=== PATIENT | female | born 1985 | race Caucasian/White ===

== ENCOUNTER 2017-02-15 21:59 | Emergency (ER) | payer MEDICAID ==
[~2017-02-15] VITALS: Ht 152.4 cm; Wt 72.6 kg
[~2017-02-15 21:59] MED LIST: AC325T PO; ACET-168 PO; ACET325T49 PO; ACHD5005 PO; ACHYD1T PO; AMPH20TA PO; BUPR1FIL3 SL; BUPR1TAB SL; CEPH500C PO; CLON0.5T60 PO; CYCL10TA45 PO; CYCL10TA9 PO; DCL250C PO; DCS100C PO; DIPH25TA82 PO; HYDR-2997 PO; HYDR-34 PO; HYDR-3720 PO; HYDR1TAB PO; IBP800T PO; KETO-22; LEVO500T69 PO; META800T5; META800T5 PO; METH4TAB PO; NAPR-243 PO; NAPR-247; NAPR250T2 PO; OXYC1TAB12 PO; PRD20T PO; PRD5T PO; PREN1TAB19 PO; PREN1TAB39 PO; PRM50SU PR; PROP1TAB77; SULF1TAB35 PO; TOPAMAX; TRAM50TA2 PO; TRM50T PO
--- OUTSIDE RECORDS SUMMARY | 2017-02-15 22:06 | XMS REPORT ---
Author Author KEON BHATIA Organization eClinicalWorks Address Unknown Phone Unavailable Care Team Providers Care Aoc Director Intelligence Officer Name Role Phone KEON BHATIA CP Unavailable Allergies No Known Allergies Problems Problem Type Condition Code Onset Dates Condition Status Problem Opioid use disorder, severe, dependence F11.20 Active Medications No Known Medications Results No Known Results Summary Purpose eClinicalWorks Submission
[2017-02-15] MEDS ORDERED: AZITHROMYCIN 250 MG TAB (ZITHROMAX) PO SCH (23:00)
[2017-02-15] MEDS ORDERED: RX-ALBUTEROL INHALER (VENTOLIN HFA) 18 GM IH STA (23:00)
[2017-02-15] MEDS ORDERED: RX-ALBUTEROL INHALER (PROAIR) 8 GM IH ONE (23:05)
[2017-02-15] MEDS ORDERED: RX-OSELTAMIVIR 75 MG (TAMIFLU) BOX OF 10 PO STA (23:16)
[2017-02-15] MEDS ORDERED: AZIT250T5 PO (23:30)
--- NOTE | 2017-02-15 23:31 | ED General ---
General Chief Complaint: Cough/Cold/Flu Symptoms Stated Complaint: COUGH/CHEST CONGESTION FEVER Nursing Triage Note: PT TO ED W/ C/O COUGH, CONGESTION, SORE THROAT ONSET THIS AM, WORSE TONIGHT Nursing Sepsis Screen: No Definite Risk Source of Information: Patient Exam Limitations: No Limitations History of Present Illness Time Seen by Provider: 22:10 Initial Comments This 31-year-old woman presents to the emergency room with cough, congestion, sore throat, fever, dyspnea, and chest discomfort since this morning. Symptoms have been worsening. She also brings several ill children the youngest of whom tested positive for influenza A. Patient is a smoker. Allergies and Home Medications Allergies Coded Allergies: latex (Verified Allergy, Unknown, 09/27/08) tramadol (Unverified Adverse Reaction, Severe, headache, 09/11/10) Home Medications Azithromycin 250 Mg Tablet #4 250 MG PO DAILY Prescribed by: JOÃO DOYLE on 02/15/17 2330 Buprenorphine Hcl/Naloxone Hcl 1 Each Film 2 EACH SL DAILY (Reported) Dicloxacillin Sodium 250 Mg Cap #24 250 MG PO Q6H Start if breast redness returns Prescribed by: WILMAR REYNOSO on 09/25/15 1414 Naproxen 250 Mg Tablet #10 250 MG PO BID Prescribed by: WILMAR REYNOSO on 09/25/15 1412 Constitutional: see HPI EENTM: see HPI Respiratory: see HPI Cardiovascular: no symptoms reported Gastrointestinal: no symptoms reported Genitourinary: no symptoms reported Musculoskeletal: no symptoms reported Skin: no symptoms reported Psychiatric/Neurological: No Symptoms Reported Hematologic/Lymphatic: No Symptoms Reported Past Tdgcfpj-Aamixk-Zfhheb Hx Patient Social History Alcohol Use: Denies Use Recreational Drug Use: No Smoking Status: Current Everyday Smoker Type Used: Cigarettes Recent Foreign Travel: No Contact w/Someone Who Travel: No Recent Infectious Disease Expo: No Recent Hopitalizations: No Immunizations Up To Date Tetanus Booster (TDap): Less than 5yrs Surgeries HX Surgeries: Yes (5 c-sec, carpal tunnel, l knee surg, benign turmor on feet, uretural reflex) Surgeries: Section Respiratory Hx Respiratory Disorders: Yes (tobaccoism) Respiratory Disorders: Asthma Cardiovascular Hx Cardiac Disorders: No Neurological Hx Neurological Disorders: No Reproductive System Hx Reproductive Disorders: No Sexually Transmitted Disease: Yes (age 12 Clamydia) HIV/AIDS: No Female Reproductive Disorders: Denies Genitourinary Hx Genitourinary Disorders: Yes Genitourinary Disorders: Kidney Infection, UTI-Chronic Gastrointestinal Hx Gastrointestinal Disorders: No (PREG constipation) Musculoskeletal Hx Musculoskeletal Disorders: Yes (2005-injury to back by lifting) Musculoskeletal Disorders: Chronic Back Pain Endocrine Hx Endocrine Disorders: No HEENT HX ENT Disorders: Yes (Wears corrective lens) Hearing Impairment: Denies Cancer Hx Cancer: No Psychosocial Hx Psychiatric Problems: No Integumentary HX Skin/Integumentary Disorder: No Blood Transfusions Hx Blood Disorders: No Adverse Reaction to a Blood Tr: No Family Medical History Significant Family History: No Pertinent Family Hx Family Medial History: Hypertension 18 MOTHER Physical Exam Vital Signs Vital Sign - Last 12Hours 02/15/17 22:25 Temp 98.0 Pulse 68 Resp 20 B/P 132/71 Pulse Ox 96 O2 Delivery Room Air Capillary Refill : Less Than 3 Seconds General Appearance: WD/WN Mild Distress HEENT: PERRL/EOMI TMs Normal Normal ENT Inspection Pharyngeal Erythema Neck: Normal Inspection Respiratory: No Accessory Muscle Use No Respiratory Distress Wheezing Cardiovascular: Regular Rate, Rhythm No Edema No Murmur Gastrointestinal: Normal Bowel Sounds Non Tender Soft Extremity: Normal Inspection No Pedal Edema Neurologic/Psychiatric: Alert Oriented x3 No Motor/Sensory Deficits Normal Mood/Affect lighter II-XII Norm as Tested Skin: Normal Color Warm/Dry Progress/Results/Core Measures Results/Orders Micro Results Microbiology 02/15/17 Influenza Types A,B Antigen (VERENICE) - Final, Complete My Orders Orders-JOÃO POLLARD MD Influenza A And B Antigens (02/15/17 22:10) Rx-Albuterol Inhaler (Rx-Ventolin Hfa) (02/15/17 23:00) Azithromycin Tablet (Zithromax Tablet) (02/15/17 23:00) Rx-Albuterol Inhaler (Rx-Proair) (02/15/17 23:05) Rx-Oseltamivir Caps (Rx-Tamiflu Caps) (02/15/17 23:16) Vital Signs/I&O Blood Pressure Mean: 91 Progress Note : Progress Note Patient's youngest son tested positive for influenza A. patient was started on Tamiflu. An inhaler was provided and education was provided by respiratory therapy. Antibiotics were initiated due to patient's smoking, chest discomfort , and significant wheezing. Departure Impression Impression: Primary Impression: Acute bronchitis Qualified Code: J20.9 - Acute bronchitis, unspecified Additional Impression: Flu-like symptoms Disposition: 01 HOME, SELF-CARE Condition: Improved Departure-Patient Inst. Decision time for Depature: 23:15 Referrals: [facility] (PCP/Family) Primary Care Physician Patient Instructions: Acute Bronchitis, Adult (DC) Add. Discharge Instructions: Reduce smoking and work toward quitting. Complete your Tamiflu as prescribed. Complete your antibiotic as prescribed. You may use your inhaler 1-4 puffs every 4 hours as needed for shortness of breath, cough, or chest discomfort. Return to care if symptoms worsen. All discharge instructions reviewed with patient and/or family. Voiced understanding. Scripts Azithromycin 250 Mg [id number] Mg PO DAILY #4 TAB Prov:JOÃO POLLARD MD 02/15/17 JOÃO POLLARD MD Feb 15, 2017 23:31
[2017-02-15 23:53] VITALS: BP 0/0
== END 2017-02-15 23:53 | disposition home or self-care (01) ==
LOC: EDUNIT# 21:59 → ER 22:02
DX: J20.9 Acute bronchitis, unspecified (principal); J10.1 Influenza due to other identified influenza virus with other respiratory manifestations; F17.210 Nicotine dependence, cigarettes, uncomplicated
CPT/HCPCS: 87804; 99283

== ENCOUNTER 2017-02-23 19:40 | Emergency (ER) | payer MEDICAID ==
[~2017-02-23] VITALS: Ht 157.5 cm; Wt 66.2 kg
[~2017-02-23 19:40] MED LIST changes: +AZIT250T5 PO
[2017-02-23 20:14] LABS: BILIRUBIN,URINE NEGATIVE (NEGATIVE); KETONES,URINE NEGATIVE (NEGATIVE); LEUKOCYTE ESTERASE ,URINE 3+ (NEGATIVE); NITRITE,URINE POSITIVE (NEGATIVE); PH,URINE 6 (5-9); PROTEIN,URINE 2+ (NEGATIVE); UROBILINOGEN,URINE NORMAL (NORMAL)
[2017-02-23] MEDS ORDERED: BUPR1FIL7 SL (20:15)
[2017-02-23 20:24] LABS: SQUAMOUS EPITHELIAL CELL,UR >50 /HPF; WBC,URINE >100 /HPF
[2017-02-23] MEDS ORDERED: LEVOFLOXACIN 500 MG TAB (LEVAQUIN) PO ONE (20:45)
[2017-02-23] MEDS ORDERED: LEVO500T2 PO (20:45)
--- NOTE | 2017-02-23 20:45 | ED GU-Female ---
General Chief Complaint: -Female Stated Complaint: DIFFICULTY URINATING Nursing Triage Note: PT C/O KIDNEY PAIN STARTING THIS MORNING. WITH CLOUDY, THICK URINE THIS EVENING. RECENTLY TREATED FOR UTI. Nursing Sepsis Screen: No Definite Risk Source: patient History of Present Illness Time seen by provider: 20:05 Initial Comments PT ARRIVES VIA POV PT STATES IMMEDIATELY PRIOR TO ARRIVAL, SHE HAD URINATED TO TAKE AN OVULATION TEST AND STATES HER URINE "LOOKED LIKE EGG WHITES AND HAD A FOUL ODOR" SO RUSHED STRAIGHT HERE STATES SHE HAS FREQUENT UTI'S AND TREATED FOR ONE WITH MACRODANTIN 2 WEEKS AGO-- SEEN AT [facility] C/O SLIGHT BURNING ON URINATION AND LOWER BACK PAIN STATES SHE HAS ONLY URINATED ONCE TODAY NO FEVER NO ABDOMINAL PAIN NO NAUSEA/VOMITING HAS CHRONIC LOWER BACK PAIN WITH SCIATICA IN RIGHT LEG--WOULD ALSO LIKE SOMETHING FOR PAIN FOR THAT PROBLEM WELL LMP 02/07/17. NO CONTROL, HAS 6 KIDS PT SEEN HERE 02/15/17 AND TREATED FOR BRONCHITIS WITH ZITHROMAX--THOSE SYMPTOMS HAVE RESOLVED. PCP: DR. PEREZ/ [facility] Allergies and Home Medications Allergies Coded Allergies: latex (Verified Allergy, Unknown, 09/27/08) tramadol (Unverified Adverse Reaction, Severe, headache, 09/11/10) Home Medications Buprenorphine HCl/Naloxone HCl 1 Each Film, 2 EACH SL DAILY, (Reported) Buprenorphine Hcl/Naloxone Hcl 1 Each Film, 1 EACH SL DAILY, (Reported) Levofloxacin 500 Mg Tablet, 500 MG PO DAILY, #14 Prescribed by: SANCHEZ PARADA on 02/23/172044 Methylprednisolone 4 Mg Tab.ds.pk, 4 MG PO UD, #1 Prescribed by: SANCHEZ PARADA on 02/23/172050 Constitutional: no symptoms reported Respiratory: no symptoms reported Cardiovascular: no symptoms reported Gastrointestinal: no symptoms reported Genitourinary: see HPI : No LMP: Feb 07, 2017 Musculoskeletal: see HPI, back pain Skin: no symptoms reported Psychiatric/Neurological: Paresthesia (TO RIGHT THIGH--CHRONIC / INTERMITTENT PROBLEM WITH SCIATICA) Endocrine: No Symptoms Reported Hematologic/Lymphatic: No Symptoms Reported Past Buykpys-Brecce-Inadqh Hx Patient Social History Alcohol Use: Denies Use Recreational Drug Use: No Smoking Status: Current Everyday Smoker (1 PPD) Type Used: Cigarettes Recent Foreign Travel: No Contact w/Someone Who Travel: No Recent Infectious Disease Expo: No Recent Hopitalizations: No Immunizations Up To Date Tetanus Booster (TDap): Less than 5yrs Surgeries HX Surgeries: Yes (5 c-sec, carpal tunnel, l knee surg, benign turmor on feet, uretural reflex) Surgeries: Bladder Surgery, Section, Orthopedic Respiratory Hx Respiratory Disorders: Yes (tobaccoism) Respiratory Disorders: Asthma Cardiovascular Hx Cardiac Disorders: No Neurological Hx Neurological Disorders: No Reproductive System Hx Reproductive Disorders: No Sexually Transmitted Disease: Yes (age 12 Chlamydia) HIV/AIDS: No Female Reproductive Disorders: Denies Genitourinary Hx Genitourinary Disorders: Yes Genitourinary Disorders: Kidney Infection, Bladder Infection, UTI-Chronic Gastrointestinal Hx Gastrointestinal Disorders: No (PREG constipation) Musculoskeletal Hx Musculoskeletal Disorders: Yes (2005-injury to back by lifting; sciatica) Musculoskeletal Disorders: Chronic Back Pain Endocrine Hx Endocrine Disorders: No HEENT HX ENT Disorders: Yes (Wears corrective lens) Hearing Impairment: Denies Cancer Hx Cancer: No Psychosocial Hx Psychiatric Problems: No Integumentary HX Skin/Integumentary Disorder: No Blood Transfusions Hx Blood Disorders: No Adverse Reaction to a Blood Tr: No Family Medical History Significant Family History: No Pertinent Family Hx Family Medial History: Hypertension 19 MOTHER Physical Exam Vital Signs Vital Sign - Last 12Hours 02/23/17 02/23/17 20:10 20:59 Temp 99.1 Pulse 75 Resp 16 B/P (MAP) 136/95 Pulse Ox 98 Capillary Refill : Less Than 3 Seconds General Appearance: WD/WN, no apparent distress Neck: normal inspection Cardiovascular: regular rate, rhythm, no murmur Respiratory: normal breath sounds, no respiratory distress, no accessory muscle use Gastrointestinal: normal bowel sounds, soft, no organomegaly, no pulsatile mass , tenderness ( MILD SUPRAPUBIC TENDERNESS) Back: no CVA tenderness, no vertebral tenderness, other (SITE OF PAIN IS RIGHT SI JOINT-BUT IS NON-TENDER TO PALPATION, STATES ONLY HURTS WHEN SHE WALKS OR MOVES. NEGATIVE STRAIGHT LEG RAISING TEST BILATERALLY. DTR'S INTACT BILATERALLY) Extremities: normal range of motion, non-tender, normal inspection, no pedal edema, no calf tenderness, normal capillary refill Neurologic/Psychiatric: report programmer II-XII nml as tested, no motor/sensory deficits, alert, normal mood/affect, oriented x 3 Skin: normal color, warm/dry Progress/Results/Core Measures Results/Orders Lab Results Laboratory Tests Test 02/23/17 20:01 Range/Units Urine Color YELLOW Urine Clarity SLIGHTLY CLOUDY Urine pH 6 5-9 Urine Specific [place] 1.020 1.016-1.022 Urine Protein 2+ H NEGATIVE Urine Glucose (UA) NEGATIVE NEGATIVE Urine Ketones NEGATIVE NEGATIVE Urine Nitrite POSITIVE H NEGATIVE Urine Bilirubin NEGATIVE NEGATIVE Urine Urobilinogen NORMAL NORMAL MG/DL Urine Leukocyte Esterase 3+ H NEGATIVE Urine RBC (Auto) 3+ H NEGATIVE Urine RBC 10-25 H /HPF Urine WBC >100 H /HPF Urine Squamous Epithelial Cells >50 H /HPF Urine Crystals NONE /LPF Urine Bacteria LARGE H /HPF Urine Casts NONE /LPF Urine Mucus NEGATIVE /LPF Urine Culture Indicated YES Urine Opiates Screen NEGATIVE NEGATIVE Urine Oxycodone Screen NEGATIVE NEGATIVE Urine Methadone Screen NEGATIVE NEGATIVE Urine Propoxyphene Screen NEGATIVE NEGATIVE Urine Barbiturates Screen NEGATIVE NEGATIVE Ur Tricyclic Antidepressants Screen NEGATIVE NEGATIVE Urine Phencyclidine Screen NEGATIVE NEGATIVE Urine Amphetamines Screen NEGATIVE NEGATIVE Urine Methamphetamines Screen NEGATIVE NEGATIVE Urine Benzodiazepines Screen NEGATIVE NEGATIVE Urine Cocaine Screen NEGATIVE NEGATIVE Urine Cannabinoids Screen NEGATIVE NEGATIVE My Orders Orders - SANCHEZ PARADA DO Ua Culture If Indicated (02/23/17 20:06) Urine Bedside (02/23/17 20:06) Urine Culture (02/23/17 20:01) Drug Screen Stat (Urine) (02/23/17 20:45) Levofloxacin Tablet (Levaquin Tablet) (02/23/17 20:45) Prednisone Tablet (Deltasone Tablet) (02/23/17 21:00) Medications Given in ED Current Medications Medications Dose Ordered Sig/Hever Route Start Time Stop Time Status Last Admin Dose Admin Levofloxacin 500 mg ONCE ONCE PO 02/23/17 20:45 02/23/17 20:47 DC 02/23/17 20:57 500 MG Prednisone 40 mg ONCE ONCE PO 02/23/17 21:00 02/23/17 21:00 DC 02/23/17 20:57 40 MG Vital Signs/I&O Vital Sign - Last 12Hours 02/23/17 02/23/17 20:10 20:59 Temp 99.1 Pulse 75 82 Resp 16 16 B/P (MAP) 136/95 Pulse Ox 98 Blood Pressure Mean: 109 Point of Care Testing Urine -Bedside: Negative Departure Impression Impression: Primary Impression: Urinary tract infection Additional Impressions: Sciatica of right side Chronic back pain Disposition: 01 HOME, SELF-CARE Condition: Stable Departure-Patient Inst. Referrals: [facility] (PCP/Family) Primary Care Physician Patient Instructions: Low Back Pain (DC), Sciatica (DC), Sciatica Exercises, Urinary Tract Infection, Adult (DC) Add. Discharge Instructions: LOTS OF CLEAR LIQUIDS--NO COFFEE, POP OR TEA TYLENOL AND MOTRIN NEEDED FOR PAIN OR FEVER FOLLOW UP WITH YOUR DR IN 4-5 DAYS FOR RECHECK All discharge instructions reviewed with patient and/or family. Voiced understanding. Scripts Methylprednisolone (Medrol) 4 Mg Tab.ds.pk 4 MG PO UD, #1 PKG Prov: SANCHEZ PARADA DO 02/23/17 Levofloxacin (Levaquin) 500 Mg Tablet 500 MG PO DAILY for INFECTION, #14 TAB Prov: SANCHEZ PARADA DO 02/23/17 SANCHEZ PARADA DO Feb 23, 2017 20:45
[2017-02-23] MEDS ORDERED: METH4TAB PO (20:51)
[2017-02-23 20:59] VITALS: BP 128/78
[2017-02-23] MEDS ORDERED: predniSONE 20 MG TAB PO ONE (21:00)
--- OUTSIDE RECORDS SUMMARY | 2017-03-10 19:17 | XMS REPORT ---
Author JESSICA Mcbride [facility] [place] eClinicalWorks Address Unknown Phone Unavailable Care Team Providers Care Lace Pinner Name Role Phone JESSICA PEREZ CP Unavailable Allergies No Known Allergies Problems Problem Type Condition Code Onset Dates Condition Status Assessment Opioid use disorder, moderate, in early remission F11.21 Active Problem Opioid use disorder, severe, dependence F11.20 Active Medications Medication Code System Code Instructions Start Date End Date Status Dosage Suboxone [facility] [address]-02 8-2 MG Sublingual Once a day Oct 06, 2016 2 application under the tongue and allow to dissolve Results No Known Results Summary Purpose eClinicalWorks Submission
--- OUTSIDE RECORDS SUMMARY | 2017-03-10 19:17 | XMS REPORT ---
Author Author KEON BHATIA Organization eClinicalWorks Address Unknown Phone Unavailable Care Team Providers Care Clinical Biostatistician Name Role Phone KEON BHATIA CP Unavailable Allergies No Known Allergies Problems Problem Type Condition Code Onset Dates Condition Status Problem Opioid use disorder, severe, dependence F11.20 Active Medications No Known Medications Results No Known Results Summary Purpose eClinicalWorks Submission
--- OUTSIDE RECORDS SUMMARY | 2017-03-10 19:18 | XMS REPORT ---
Author JESSICA Mcbride Organization eClinicalWorks Address Unknown Phone Unavailable Care Team Providers Care Machine Clerical Verifier Name Role Phone JESSICA PEREZ CP Unavailable Allergies No Known Allergies Problems Problem Type Condition Code Onset Dates Condition Status Problem Encounter for therapeutic drug level monitoring Z51.81 Active Problem Opioid use disorder, severe, dependence F11.20 Active Problem Other long term care phlebotomist (current) drug therapy Z79.899 Active Assessment Opioid use disorder, severe, dependence F11.20 Active Medications No Known Medications Results No Known Results Summary Purpose eClinicalWorks Submission
--- OUTSIDE RECORDS SUMMARY | 2017-03-10 19:19 | XMS REPORT ---
Author Author KEON BHATIA Organization eClinicalWorks Address Unknown Phone Unavailable Care Team Providers Care Prosthetics Lab Technician Name Role Phone KEON BHATIA CP Unavailable Allergies No Known Allergies Problems Problem Type Condition Code Onset Dates Condition Status Problem Encounter for therapeutic drug level monitoring Z51.81 Active Problem Opioid use disorder, severe, dependence F11.20 Active Problem Other halfway (current) drug therapy Z79.899 Active Medications No Known Medications Results No Known Results Summary Purpose eClinicalWorks Submission
--- OUTSIDE RECORDS SUMMARY | 2017-03-10 19:19 | XMS REPORT ---
Author JESSICA Mcbride [facility] eClinicalWorks Address Unknown Phone Unavailable Care Team Providers Care Mortgage Loan Officer Name Role Phone JESSICA PEREZ CP Unavailable Allergies, Adverse Reactions, Alerts Substance Reaction Event Type Tramadol HCl nausea/headache Drug Allergy Problems Problem Type Condition Code Onset Dates Condition Status Assessment History of substance abuse Z87.898 Active Problem Opioid use disorder, severe, dependence F11.20 Active Medications Medication Code System Code Instructions Start Date End Date Status Dosage Suboxone [facility] [address]-96 8-2 MG Sublingual Once a day 2 films under the tongue and allow to dissolve Procedures Procedure Coding System Code Date COMPLETE CBC W/AUTO DIFF WBC CPT-4 51410 Sep 29, 2016 COMPREHEN METABOLIC PANEL CPT-4 85612 Sep 29, 2016 Alcohol and/or drug services CPT-4 H0004 Sep 29, 2016 ACUTE HEPATITIS PANEL CPT-4 60440 Sep 29, 2016 No Charge CPT-4 88144 Sep 29, 2016 VENIPUNCT, ROUTINE* CPT-4 56151 Sep 29, 2016 PROTHROMBIN TIME CPT-4 47577 Sep 29, 2016 Results Name Result Date Reference Range Unit Abnormality Flag PT/INR ----INR 1.0 [id number] 0.8-1.2 ----Prothrombin Time 10.3 62373734 9.1-12.0 sec CMP ----Globulin, Total 2.9 76913389 1.5-4.5 g/dL ----eGFR If Africn Am 129 16385408 >59 mL/min/1.73 ----eGFR If NonAfricn Am 112 35888584 >59 mL/min/1.73 ----Albumin, Serum 4.0 77821815 3.5-5.5 g/dL ----Sodium, Serum 142 76443274 136-144 mmol/L ----Protein, Total, Serum 6.9 85171040 6.0-8.5 g/dL ----BUN/Creatinine Ratio 13 20160929 8-20 ----Calcium, Serum 9.2 20160929 8.7-10.2 mg/dL ----AST (SGOT) 14 20160929 0-40 IU/L ----Glucose, Serum 77 20160929 65-99 mg/dL ----Alkaline Phosphatase, S 62 20160929 39-117 IU/L ----Bilirubin, Total <0.2 20160929 0.0-1.2 mg/dL ----Creatinine, Serum 0.72 20160929 0.57-1.00 mg/dL ----A/G Ratio 1.4 20160929 1.1-2.5 ----BUN 9 20160929 6-20 mg/dL ----Carbon Dioxide, Total 25 20160929 18-29 mmol/L ----ALT (SGPT) 8 20160929 0-32 IU/L ----Potassium, Serum 4.4 20160929 3.5-5.2 mmol/L ----Chloride, Serum 104 20160929 97-106 mmol/L ROUTINE VENIPUNCTURE CBC ----MCHC 32.2 55694000 31.5-35.7 g/dL ----MCH 25.4 16692803 26.6-33.0 pg L ----Platelets 275 20160929 150-379 x10E3/uL ----RDW 15.9 33277909 12.3-15.4 % H ----Immature Granulocytes 0 70186007 % ----Immature Grans (Abs) 0.0 36878717 0.0-0.1 x10E3/uL ----Lymphs 29 44720832 % ----Monocytes 7 18023070 % ----Neutrophils 51 65265806 % ----Neutrophils (Absolute) 2.8 62769194 1.4-7.0 x10E3/uL ----Hematocrit 32.9 98618320 34.0-46.6 % L ----Lymphs (Absolute) 1.6 02699206 0.7-3.1 x10E3/uL ----MCV 79 67972160 79-97 fL ----RBC 4.17 33891784 3.77-5.28 x10E6/uL ----Eos 12 20160929 % ----Basos 1 20160929 % ----Hemoglobin 10.6 20160929 11.1-15.9 g/dL L ----Baso (Absolute) 0.0 20160929 0.0-0.2 x10E3/uL ----WBC 5.5 20160929 3.4-10.8 x10E3/uL ----Monocytes(Absolute) 0.4 12238245 0.1-0.9 x10E3/uL ----Eos (Absolute) 0.7 74820993 0.0-0.4 x10E3/uL H HIV (STATE) HEPATITIS PROFILE ----Hep C Virus Ab <0.1 20160929 0.0-0.9 s/co ratio ----Hep B Core Ab, IgM Negative 20160929 Negative ----HBsAg Screen Negative 20160929 Negative ----Hep A Ab, IgM Negative 20160929 Negative [employer] Summary Purpose eClinicalWorks Submission
--- OUTSIDE RECORDS SUMMARY | 2017-03-10 19:19 | XMS REPORT ---
Author JESSICA Mcbride Organization eClinicalWorks Address Unknown Phone Unavailable Care Team Providers Care Director [place] [employer] Name Role Phone JESSICA PEREZ CP Unavailable Allergies No Known Allergies Problems Problem Type Condition Code Onset Dates Condition Status Problem Encounter for therapeutic drug level monitoring Z51.81 Active Problem Opioid use disorder, severe, dependence F11.20 Active Problem Other intermediate project manager (current) drug therapy Z79.899 Active Assessment Opioid use disorder, severe, dependence F11.20 Active Medications Medication Code System Code Instructions Start Date End Date Status Dosage Suboxone [facility] [address]-32 8-2 MG Sublingual Once a day Oct 06, 2016 2.5 films (20mg) under the tongue and allow to dissolve Results No Known Results Summary Purpose eClinicalWorks Submission
--- OUTSIDE RECORDS SUMMARY | 2017-03-10 19:19 | XMS REPORT ---
Author JESSICA Mcbride eClinicalWorks Address Unknown Phone Unavailable Care Team Providers Care Support Coordinator Name Role Phone JESSICA PEREZ CP Unavailable Allergies No Known Allergies Problems Problem Type Condition Code Onset Dates Condition Status Assessment History of substance abuse Z87.898 Active Problem Opioid use disorder, severe, dependence F11.20 Active Medications Medication Code System Code Instructions Start Date End Date Status Dosage Suboxone [facility] [address]-79 8-2 MG Sublingual Once a day 3 films under the tongue and allow to dissolve Procedures Procedure Coding System Code Date URINE TEST CPT-4 17524 Oct 03, 2016 Results Name Result Date Reference Range Unit Abnormality Flag TEST, URINE (IN HOUSE) ----RESULTS neg [id number] ----Lot # [id number] ----Control + 20161003 ----Exp date 20161003 Summary Purpose eClinicalWorks Submission
--- OUTSIDE RECORDS SUMMARY | 2017-03-10 19:20 | XMS REPORT ---
Author Author KEON BHATIA Organization eClinicalWorks Address Unknown Phone Unavailable Care Team Providers Care Nursing Student Name Role Phone KEON BHATIA CP Unavailable Allergies No Known Allergies Problems Problem Type Condition Code Onset Dates Condition Status Problem Opioid use disorder, severe, dependence F11.20 Active Medications No Known Medications Results No Known Results Summary Purpose eClinicalWorks Submission
--- OUTSIDE RECORDS SUMMARY | 2017-03-10 19:20 | XMS REPORT ---
Author JESSICA Mcbride [employer] Address Unknown Phone Unavailable Care Team Providers Care Machine Edge Bander Name Role Phone JESSICA PEREZ CP Unavailable Allergies No Known Allergies Problems Problem Type Condition Code Onset Dates Condition Status Problem Encounter for therapeutic drug level monitoring Z51.81 Active Problem Opioid use disorder, severe, dependence F11.20 Active Problem Other intermediate designer (current) drug therapy Z79.899 Active Assessment Encounter for therapeutic drug level monitoring Z51.81 Active Assessment Neck pain M54.2 Active Assessment Opioid use disorder, severe, dependence F11.20 Active Assessment Other senior living (current) drug therapy Z79.899 Active Medications No Known Medications Procedures Procedure Coding System Code Date Office Visit, Est Pt., Level 3 CPT-4 07734 Oct 20, 2016 DRUG SCREEN NON TLC DEVICES CPT-4 07072 Oct 20, 2016 Vital Signs Date/Time: Oct 20, 2016 Cardiac Monitoring Heart Rate 76 bpm Weight 155.6 lbs Height 63 in BMI 27.56 Index Blood Pressure Diastolic 72 mmHg Blood Pressure Systolic 112 mmHg Results Name Result Date Reference Range Unit Abnormality Flag URINE DRUG SCREEN (IN HOUSE) ----BUP n/a 20161020 ----TCA neg 20161020 ----MDMA neg 20161020 ----BENZO neg 20161020 ----OPIATE neg 20161020 ----THC neg 20161020 ----MTD neg 20161020 ----AMPH neg 20161020 ----BAR neg 20161020 ----PCP neg 20161020 ----MAMP neg 20161020 ----OXY neg 20161020 ----Lot # [id number] ----Exp date 20161020 ----Control + 20161020 ----COCAINE neg 20161020 Summary Purpose eClinicalWorks Submission
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
--- OUTSIDE RECORDS SUMMARY | 2017-03-10 19:21 | XMS REPORT ---
Author Author KEON BHATIA Organization [employer] Address Unknown Phone Unavailable Care Team Providers Care Household Appliance Assembler Name Role Phone KEON BHATIA CP Unavailable Allergies No Known Allergies Problems Problem Type Condition Code Onset Dates Condition Status Problem Opioid use disorder, severe, dependence F11.20 Active Medications No Known Medications Results No Known Results Summary Purpose [employer] Submission
--- OUTSIDE RECORDS SUMMARY | 2017-03-10 19:22 | XMS REPORT ---
Author Author JESSICA PEREZ [facility] Address [address] [place] [address] Care Team Providers Care Vault Clerk Name Role Phone JESSICA PEREZ Unavailable PROBLEMS Type Condition ICD9-CM Code [id number] Code Onset Dates Condition Status SNOMED Code Problem Other senior living (current) drug therapy Z79.899 Active 555755353 Problem Encounter for therapeutic drug level monitoring Z51.81 Active 827302096 Problem Opioid use disorder, severe, dependence F11.20 Active 50365345 Assessment Opioid use disorder, severe, dependence F11.20 Sep, Active 85624152 ALLERGIES Substance Reaction Event Type Date Status Tramadol HCl nausea/headache Drug Allergy Sep, Active SOCIAL HISTORY No smoking Hx information available PLAN OF CARE VITAL SIGNS Height 63 in 2016-10-27 Weight 155.0 lbs 2016-10-27 Heart Rate 72 bpm 2016-10-27 Respiratory Rate 18 2016-10-27 BMI 27.45 kg/m2 2016-10-27 Blood pressure systolic 120 mmHg 2016-10-27 Blood pressure diastolic 78 mmHg 2016-10-27 MEDICATIONS Medication Instructions Dosage Frequency Start Date End Date Duration Status Suboxone 8-2 MG Sublingual Once a day 2.5 films (20mg) under the tongue and allow to dissolve 24h Sep, Active RESULTS No Results PROCEDURES Procedure Date Ordered Related Diagnosis Body Site Office Visit, Est Pt., Level 3 Oct 27, 2016 IMMUNIZATIONS No Known Immunizations
--- OUTSIDE RECORDS SUMMARY | 2017-03-10 19:22 | XMS REPORT ---
Author Author GEOVANI DAVIDSON [facility] [employer] Address Unknown Phone Unavailable Care Team Providers Care Nutrition Teacher Name Role Phone GEOVANI DAVIDSON Unavailable Allergies No Known Allergies Problems Problem Type Condition Code Onset Dates Condition Status Assessment Counseling on substance use and abuse Z71.89 Active Problem Opioid use disorder, severe, dependence F11.20 Active Medications No Known Medications Procedures Procedure Coding System Code Date Alcohol and/or drug services CPT-4 H0004 Sep 29, 2016 Results No Known Results Summary Purpose [employer] Submission
--- OUTSIDE RECORDS SUMMARY | 2017-03-10 19:22 | XMS REPORT ---
Author Author KEON BHATIA Organization [employer] Address Unknown Phone Unavailable Care Team Providers Care Manager Language Name Role Phone KEON BHATIA CP Unavailable Allergies No Known Allergies Problems Problem Type Condition Code Onset Dates Condition Status Problem Opioid use disorder, severe, dependence F11.20 Active Medications No Known Medications Results No Known Results Summary Purpose [employer] Submission
--- OUTSIDE RECORDS SUMMARY | 2017-03-10 19:22 | XMS REPORT ---
Author Author KEON BHATIA Organization [employer] Address Unknown Phone Unavailable Care Team Providers Care Boarder Machine Name Role Phone KEON BHATIA CP Unavailable Allergies No Known Allergies Problems Problem Type Condition Code Onset Dates Condition Status Problem Opioid use disorder, severe, dependence F11.20 Active Medications No Known Medications Results No Known Results Summary Purpose [employer] Submission
--- OUTSIDE RECORDS SUMMARY | 2017-03-10 19:22 | XMS REPORT ---
Author Author CLAUDINE FOWLER [employer] Address Unknown Phone Unavailable Care Team Providers Care Banjo Repair Person Name Role Phone CLAUDINE FOWLER CP Unavailable Allergies, Adverse Reactions, Alerts Substance Reaction Event Type N.K.D.A. Info Not Available Non Drug Allergy Problems Problem Type Condition Code Onset Dates Condition Status Problem Previous delivery, unspecified as to episode of care or not applicable 654.20 Active Problem Screening for diabetes mellitus V77.1 Active Problem DTAP TEST V06.1 Active Problem Encounter for long-term (current) use of other medications V58.69 Active Problem Tobacco use disorder complicating , childbirth, or the puerperium, unspecified as to episode of care or not applicable 649.00 Active Problem Major depressive disorder, recurrent episode, unspecified 296.30 Active Problem with history of V23.2 Active Problem Supervision of with history of pre-term labor V23.41 Active Problem Screening examination for venereal disease V74.5 Active Problem Screening for malignant neoplasm of the cervix V76.2 Active Problem Acute pharyngitis 462 Active Problem Attention deficit disorder of childhood without mention of hyperactivity 314.00 Active Assessment Acute non-recurrent maxillary sinusitis J01.00 Active Problem Infections of genitourinary tract in , unspecified as to episode of care 646.60 Active Problem Nondependent opioid abuse, in remission 305.53 Active Problem Insufficient care V23.7 Active Medications Medication Code System Code Instructions Start Date End Date Status Dosage [facility] [place] [address] Orally Once a day 1 tablet Suboxone [facility] [place] [address]-48 8-2 MG Sublingual Once a day 1 application under the tongue and allow to dissolve Augmentin [facility] [place] [address]-01 875-125 MG Orally every 12 hrs Sep 05, 2016 Sep 15, 2016 1 tablet Procedures Procedure Coding System Code Date Office Visit, Est Pt., Level 3 CPT-4 51597 Sep 05, 2016 Vital Signs Date/Time: Sep 05, 2016 Cardiac Monitoring Heart Rate 80 bpm Weight 156.4 lbs Height 63 in BMI 27.70 Index Blood Pressure Diastolic 82 mmHg Blood Pressure Systolic 130 mmHg Results No Known Results Summary Purpose eClinicalWorks Submission
--- OUTSIDE RECORDS SUMMARY | 2017-03-10 19:23 | XMS REPORT ---
Author JESSICA Mcbride Organization [employer] Address Unknown Phone Unavailable Care Team Providers Care Counseling Center Manager Name Role Phone JESSICA PEREZ CP Unavailable Allergies, Adverse Reactions, Alerts Substance Reaction Event Type Tramadol HCl nausea/headache Drug Allergy Problems Problem Type Condition Code Onset Dates Condition Status Assessment Opioid use disorder, severe, dependence F11.20 Active Problem Opioid use disorder, severe, dependence F11.20 Active Medications Medication Code System Code Instructions Start Date End Date Status Dosage Suboxone [facility] [place] [address]-16 8-2 MG Sublingual Once a day Oct 06, 2016 2.5 films (20mg) under the tongue and allow to dissolve Procedures Procedure Coding System Code Date Office Visit, Est Pt., Level 3 CPT-4 27312 Oct 13, 2016 DRUG SCREEN NON TLC DEVICES CPT-4 13685 Oct 13, 2016 Vital Signs Date/Time: Oct 13, 2016 Cardiac Monitoring Heart Rate 76 bpm Weight 153.7 lbs Height 63 in BMI 27.22 Index Blood Pressure Diastolic 84 mmHg Blood Pressure Systolic 112 mmHg Results Name Result Date Reference Range Unit Abnormality Flag URINE DRUG SCREEN (IN HOUSE) ----BUP + [id number] ----TCA n/a [id number] ----MDMA neg [id number] ----BENZO neg [id number] ----OPIATE neg [id number] ----THC neg [id number] ----MTD neg [id number] ----AMPH neg [id number] ----BAR neg [id number] ----PCP neg [id number] ----MAMP neg [id number] ----OXY neg [id number] ----Lot # [id number] ----Exp date [id number] ----Control + [id number] ----COCAINE neg [id number] Summary Purpose [employer] Submission
--- OUTSIDE RECORDS SUMMARY | 2017-03-10 19:23 | XMS REPORT ---
Author Author RAFAEL TADEO Organization [employer] Address Unknown Phone Unavailable Care Team Providers Care Paper Sample Clerk Name Role Phone RAFAEL TADEO CP Unavailable Allergies No Known Allergies Problems Problem Type Condition Code Onset Dates Condition Status Problem Encounter for therapeutic drug level monitoring Z51.81 Active Problem Opioid use disorder, severe, dependence F11.20 Active Problem Other [facility] (current) drug therapy Z79.899 Active Medications No Known Medications Results No Known Results Summary Purpose [employer] Submission
--- OUTSIDE RECORDS SUMMARY | 2017-03-10 19:23 | XMS REPORT ---
Author Author RAFAEL TADEO Organization [employer] Address Unknown Phone Unavailable Care Team Providers Care Silicator Name Role Phone RAFAEL TADEO CP Unavailable Allergies No Known Allergies Problems Problem Type Condition Code Onset Dates Condition Status Assessment Counseling on substance use and abuse Z71.89 Active Problem Opioid use disorder, severe, dependence F11.20 Active Medications No Known Medications Procedures Procedure Coding System Code Date AUDIT/DAST, OVER 30 MIN CPT-4 12130 Oct 06, 2016 Results No Known Results Summary Purpose [employer] Submission
--- OUTSIDE RECORDS SUMMARY | 2017-03-10 19:23 | XMS REPORT ---
Author Author KEON BHATIA Organization [employer] Address Unknown Phone Unavailable Care Team Providers Care Arborist Name Role Phone KEON BHATIA CP Unavailable Allergies No Known Allergies Problems Problem Type Condition Code Onset Dates Condition Status Problem Opioid use disorder, severe, dependence F11.20 Active Medications No Known Medications Results No Known Results Summary Purpose [employer] Submission
--- OUTSIDE RECORDS SUMMARY | 2017-03-10 19:24 | XMS REPORT ---
Author Author KEON BHATIA Organization [employer] Address Unknown Phone Unavailable Care Team Providers Care Equal Opportunity Specialist Name Role Phone KEON BHATIA CP Unavailable Allergies No Known Allergies Problems Problem Type Condition Code Onset Dates Condition Status Problem Encounter for therapeutic drug level monitoring Z51.81 Active Problem Opioid use disorder, severe, dependence F11.20 Active Problem Other [facility] ([facility] drug [facility] Z79.899 Active Medications No Known Medications Results No Known Results Summary Purpose [employer] Submission
--- OUTSIDE RECORDS SUMMARY | 2017-03-10 19:24 | XMS REPORT ---
Author JESSICA Mcbride Organization [employer] Address Unknown Phone Unavailable Care Team Providers Care Obstetric Anaesthetist Name Role Phone JESSICA PEREZ CP Unavailable Allergies No Known Allergies Problems Problem Type Condition Code Onset Dates Condition Status Assessment Opioid use disorder, severe, dependence F11.20 Active Problem Opioid use disorder, severe, dependence F11.20 Active Medications No Known Medications Results No Known Results Summary Purpose [employer] Submission
--- OUTSIDE RECORDS SUMMARY | 2017-03-10 19:24 | XMS REPORT ---
Author JESSICA Mcbride Organization [employer] Address Unknown Phone Unavailable Care Team Providers Care Mining Consultant Name Role Phone JESSICA PEREZ CP Unavailable Allergies, Adverse Reactions, Alerts Substance Reaction Event Type Tramadol HCl nausea/headache Drug Allergy Problems Problem Type Condition Code Onset Dates Condition Status Assessment Opioid use disorder, moderate, in early remission F11.21 Active Problem Opioid use disorder, severe, dependence F11.20 Active Medications Medication Code System Code Instructions Start Date End Date Status Dosage Suboxone [facility] [id number] 8-2 MG Sublingual Once a day Oct 06, 2016 2 application under the tongue and allow to dissolve Procedures Procedure Coding System Code Date Office Visit, Est Pt., Level 4 CPT-4 65752 Oct 06, 2016 Vital Signs Date/Time: Oct 06, 2016 Cardiac Monitoring Heart Rate 84 bpm Weight 152.6 lbs Height 63 in BMI 27.03 Index Blood Pressure Diastolic 84 mmHg Blood Pressure Systolic 122 mmHg Results No Known Results Summary Purpose [employer] Submission
== END 2017-02-23 20:59 | disposition home or self-care (01) ==
LOC: EDUNIT# 19:40 → ER 19:42
DX: N30.91 Cystitis, unspecified with hematuria (principal); M54.5 Low back pain; G89.29 Other chronic pain; F17.210 Nicotine dependence, cigarettes, uncomplicated
CPT/HCPCS: 80306; 81000; 84703; 87088; 99282

== ENCOUNTER → 2018-12-17 | Outpatient (CLI) | payer MEDICAID ==
[~2018-12-17] MED LIST changes: +AZIT250T12 PO; -AZIT250T5 PO; +BUPR1FIL7 SL; +LEVO500T2 PO; -NAPR250T2 PO; +NAPR250T6 PO
--- NOTE | 2018-12-17 14:54 | Diagnostic Imaging Report ---
INDICATION: Bilateral breast lumps and right sided nipple discharge. COMPARISON: No prior mammograms are available for comparison. TECHNIQUE: Bilateral 2D and 3D diagnostic mammography was performed with CAD. FINDINGS: Scattered fibroglandular densities are identified bilaterally. No mass or malignant appearing microcalcifications are seen. The axillae are unremarkable. IMPRESSION: No mammographic features suspicious for malignancy. Even so, sonographic interrogation of the areas of lump bilaterally is recommended and will be performed today. ACR BI-RADS Category 0: Incomplete. (Needs additional imaging evaluation). Result letter will be mailed to the patient. Note: At least 10% of breast cancer is not imaged by mammography. Dictated by: Dictated on workstation # [id number]
--- NOTE | 2018-12-17 18:10 | Diagnostic Imaging Report ---
INDICATION: Bilateral breast lumps. FINDINGS: Sonographic interrogation of the areas of lumps in both breasts was performed. This correlates to the 4 o'clock and 10 o'clock location of the right breast and the 2 o'clock location of the left breast. No sonographic abnormality is seen bilaterally. No solid or cystic mass is seen. IMPRESSION: No sonographic abnormality is seen. Continued clinical and self-breast exams recommended to confirm stability of the areas of palpable abnormality. ACR BI-RADS Category 1: Negative. Dictated by: Dictated on workstation # [id number]
== END ==
LOC: RAD 13:21
PROVIDERS: ATTEND Nurse Practitioner Community Health
DX: N63.21 Unspecified lump in the left breast, upper outer quadrant (principal); N63.14 Unspecified lump in the right breast, lower inner quadrant; N63.11 Unspecified lump in the right breast, upper outer quadrant; N64.52 Nipple discharge
CPT/HCPCS: 76642; 77066

== ENCOUNTER 2021-05-21 23:13 | Emergency (ER) | payer SELFPAY ==
[~2021-05-21] VITALS: Ht 158 cm; Wt 75.4 kg
[~2021-05-21 23:13] MED LIST changes: +NAPR-1088 PO; -NAPR250T6 PO
[2021-05-21 23:50] LABS: BILIRUBIN,URINE NEGATIVE (NEGATIVE); CLARITY,URINE CLEAR; COLOR,URINE YELLOW; GLUCOSE, URINE (UA) NEGATIVE (NEGATIVE); KETONES,URINE NEGATIVE (NEGATIVE); LEUKOCYTE ESTERASE ,URINE TRACE (NEGATIVE); NITRITE,URINE POSITIVE (NEGATIVE); PH,URINE 6.5 (5-9); PROTEIN,URINE TRACE (NEGATIVE)
--- NOTE | 2021-05-21 23:59 | ED GU-Female ---
General Chief Complaint: Female Reproductive Stated Complaint: VAG BLEEDING,STS 2 MONTHS PREG Nursing Triage Note: REPORTS MULTIPLE POSITIVE TESTS SINCE FEBRUARY. STATES INTERMITTANT BLEEDING. RECENT BLEEDING STARTED TODAY APPROX. 1600 UTILIZING MULTIPLE PADS/TAMPONS PER HR. Nursing Sepsis Screen: No Definite Risk Source: patient Exam Limitations: no limitations ([employer]ER [employer] MED STUDENT) History of Present Illness Date Seen by Provider: May 21, 2021 Time Seen by Provider: 23:54 Initial Comments Mrs. Donovan is a 35yo female that presents today with painless vaginal bleeding. States that LMP was around end january or early february and had taken tests around that time and found she was . She had an appointment to see Dr. Novak for April 03 but did not go due to an episode of vaginal bleeding. During this episode she bled for about an hour and then it stopped. She passed a few clots. She has taken tests since then and states they still show positive. She has a new appointment scheduled with him in about a week from now. She has not had an ultrasound to confirm intrauterine at this time. She states that with the bleeding she is having today she is having no pain. States the bleeding was really bad for about 90 minutes. She has soaked through at least 2 pads and 2 tampons. She also complains of some cramping and pressure. She also states she is getting over a UTI and thinks she may be still experiencing minor symptoms. She is sexually active with one partner and is not concerned for STD's. 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 She denies alcohol use. She has a history of numerous miscarriages. ([employer] MED STUDENT) Allergies and Home Medications Allergies Coded Allergies: latex (Verified Allergy, Unknown, 09/27/08) tramadol (Unverified Adverse Reaction, Severe, headache, 09/11/10) Home Medications Cephalexin 500 Mg Tablet, 500 MG PO TID Prescribed by: OJÃO DOYLE on 05/22/21 0100 Patient Home Medication List Home Medication List Reviewed: Yes (JOÃO POLLARD MD) Review of Systems Review of Systems Constitutional: No chills, No malaise EENTM: No hearing loss, No vision loss Respiratory: No dyspnea on exertion, No short of breath Cardiovascular: No chest pain, No palpitations Gastrointestinal: abdominal pain (Some cramping), constipation (Chronic); No diarrhea; nausea, vomiting Genitourinary: dysuria (mild) : Yes Musculoskeletal: No joint pain, No muscle pain Skin: No rash Psychiatric/Neurological: Headache (SHER GRANDE [employer] STUDENT) Past [id number]-Qqdgwd-Ltsqhh Hx Patient Social History Alcohol Use: Denies Use Drug of Choice: METH Smoking Status: Current Everyday Smoker Type Used: Cigarettes Recent Infectious Disease Expo: No Recent Hopitalizations: No (SHER GR[employer]DE [employer] STUDENT) Immunizations Up To Date Tetanus Booster (TDap): Less than 5yrs (SHER GRANDE [employer] STUDENT) Seasonal Allergies Seasonal Allergies: No ([employer]) Past Medical History Surgeries: Yes (6 c-sec, carpal tunnel, l knee surg, benign turmor on feet, uretural reflex) Bladder Surgery, Section, Orthopedic Respiratory: Yes Asthma Cardiac: Yes Hypertension Neurological: No : Yes Last Menstrual Period: Mar 14, 2021 Hx : 10 Hx Para: 6 Reproductive Disorders: No Female Reproductive Disorders: Denies Sexually Transmitted Disease: Yes (age 12 Chlamydia) HIV/AIDS: No Genitourinary: Yes Kidney Infection, Bladder Infection, UTI-Chronic Gastrointestinal: No Musculoskeletal: Yes Back Injury, Chronic Back Pain Endocrine: No HEENT: No Hearing Impairment: Denies Cancer: No Psychosocial: No Integumentary: No Blood Disorders: No Adverse Reaction/Blood Tranf: No ([employer] GRANDE [email or web address]) Family Medical History Hypertension 19 MOTHER No Pertinent Family Hx (SHER GRANDE [employer] ANNA) Physical Exam Vital Signs Vital Signs - First Documented 05/21/21 23:20 Temp 36.9 Pulse 91 Resp 18 B/P (MAP) 172/110 (130) Pulse Ox 98 O2 Delivery Room Air (JOÃO POLLARD MD) Vital Signs Capillary Refill : Less Than 3 Seconds (SHER GR[employer]DE [employer] STUDENT) Height, Weight, BMI Height: 5'2.00" Weight: 146lbs. 4.0oz. 66.886033vk; 30.00 BMI Method:Stated General Appearance: WD/WN, no apparent distress Cardiovascular: regular rate, rhythm, no edema, no murmur Respiratory: chest non-tender, lungs clear, normal breath sounds, no respiratory distress, no accessory muscle use Gastrointestinal: normal bowel sounds, non tender, soft, no organomegaly, no pulsatile mass Extremities: non-tender, no calf tenderness, other (Some swelling of LE) Neurologic/Psychiatric: alert, normal mood/affect, oriented x 3 Skin: normal color, warm/dry ([employer]) Progress/Results/Core Measures Suspected Sepsis Recent Fever Within 48 Hours: No Infection Criteria Present: None New/Unexplained Altered Menta: No Sepsis Screen: No Definite Risk SIRS Temperature: Pulse: 91 Respiratory Rate: 18 Blood Pressure 172 /110 Mean: 130 ([employer]) Results/Orders Lab Results Laboratory Tests Test 05/21/21 23:23 05/21/21 23:55 Range/Units Urine Color YELLOW Urine Clarity CLEAR Urine pH 6.5 5-9 Urine Specific [place] >=1.030 1.016-1.022 Urine Protein TRACE H NEGATIVE Urine Glucose (UA) NEGATIVE NEGATIVE Urine Ketones NEGATIVE NEGATIVE Urine Nitrite POSITIVE H NEGATIVE Urine Bilirubin NEGATIVE NEGATIVE Urine Urobilinogen 0.2 < = 1.0 MG/DL Urine Leukocyte Esterase TRACE H NEGATIVE Urine RBC (Auto) 3+ H NEGATIVE Urine RBC 50-100 H /HPF Urine WBC 10-25 H /HPF Urine Squamous Epithelial Cells 10-25 H /HPF Urine Crystals NONE /LPF Urine Bacteria LARGE H /HPF Urine Casts NONE /LPF Urine Mucus NEGATIVE /LPF Urine Culture Indicated YES White Blood Count 7.0 4.3-11.0 10^3/uL Red Blood Count 4.18 3.80-5.11 10^6/uL Hemoglobin 10.0 L 11.5-16.0 g/dL Hematocrit 32 L 35-52 % Mean Corpuscular Volume 75 L 80-99 fL Mean Corpuscular Hemoglobin 24 L 25-34 pg Mean Corpuscular Hemoglobin Concent 32 32-36 g/dL Red Cell Distribution Width 17.9 H 10.0-14.5 % Platelet Count 370 130-400 10^3/uL Mean Platelet Volume 9.4 9.0-12.2 fL Immature Granulocyte % (Auto) 0 % Neutrophils (%) (Auto) 55 42-75 % Lymphocytes (%) (Auto) 27 12-44 % Monocytes (%) (Auto) 8 0-12 % Eosinophils (%) (Auto) 9 0-10 % Basophils (%) (Auto) 1 0-10 % Neutrophils # (Auto) 3.9 1.8-7.8 10^3/uL Lymphocytes # (Auto) 1.9 1.0-4.0 10^3/uL Monocytes # (Auto) 0.6 0.0-1.0 10^3/uL Eosinophils # (Auto) 0.6 H 0.0-0.3 10^3/uL Basophils # (Auto) 0.1 0.0-0.1 10^3/uL Immature Granulocyte # (Auto) 0.0 0.0-0.1 10^3/uL Human Chorionic Gonadotropin, Quant 19 H <5 MIU/ML (JOÃO POLLARD MD) My Orders Orders - JOÃO POLLARD MD Cbc With Automated Diff (05/21/21 23:40) Hcg,Quantitative (05/21/21 23:40) Ua Culture If Indicated (05/21/21 23:40) Urine Culture (05/21/21 23:23) Cephalexin Capsule (Keflex Capsule) (05/22/21 01:00) (JOÃO POLLARD MD) Medications Given in ED Current Medications Medications Dose Ordered Sig/Hever Route Start Time Stop Time Status Last Admin Dose Admin Cephalexin HCl 500 mg ONCE ONCE PO 05/22/21 01:00 05/22/21 01:01 DC 05/22/21 01:06 500 MG (JOÃO POLLARD MD) Vital Signs/I&O 05/21/21 05/22/21 23:20 01:05 Temp 36.9 36.8 Pulse 91 79 Resp 18 18 B/P (MAP) 172/110 (130) 165/99 (130) Pulse Ox 98 99 O2 Delivery Room Air Room Air (JOÃO POLLARD MD) Vital Signs/I&O Capillary Refill : Less Than 3 Seconds (SHER GRANDE MED STUDENT) Blood Pressure Mean: 130 Progress Note : Progress Note hCG was only 19. It is unclear whether patient has a very early or is miscarrying. I have advised her to follow-up with Dr. Garrido to have a repeat hCG level performed. Depending on the results, ultrasound may be warranted. We also discussed the possibility of vaginal infections. She has had no vaginal symptoms prior to the onset of bleeding. However, she states her current partner is a new partner within the last year and she has not had any STI screening since becoming sexually active with him. She was offered a pelvic exam in the ER but would like to wait and do this with her primary care provider. Keflex was given for UTI. (JOÃO POLLARD MD) Departure Impression Primary Impression: Vaginal bleeding during Additional Impression: Urinary tract infection Qualified Codes: N39.0 - Urinary tract infection, site not specified; R31.9 - Hematuria, unspecified Disposition: 01 HOME, SELF-CARE Condition: Stable Departure-Patient Inst. Decision time for Depature: 00:59 (JOÃO POLLARD MD) Referrals: [facility] [place] (PCP/Family) Primary Care Physician Patient Instructions: Bleeding in Early ED Add. Discharge Instructions: Follow-up with Dr. Garrido later this morning. Your status should be monitored with a repeat hCG level and possibly an ultrasound if appropriate. Also discussed obtaining a pelvic exam for STI screening with Dr. Garrido. Drink plenty of clear liquids to stay well-hydrated. Complete your antibiotic for urinary tract infection as prescribed. Return to care if symptoms are worsening. Avoid intercourse or anything vaginally until cleared by your doctor. You may take Tylenol (acetaminophen) up to 1000 mg every 6 hours as needed for pain or cramping. Call with questions or concerns. All discharge instructions reviewed with patient and/or family. Voiced understanding. Scripts Cephalexin (Cephalexin) 500 Mg Tablet 500 MG PO TID, #20 TAB Prov: JOÃO POLLARD MD 05/22/21 Medical Student Attestation and Attending Note: I have personally interviewed and examined this patient along with Sher Grande MS4. I have reviewed student documentation including history, physical, and assessments. I agree with the documentation except where otherwise noted. Exam: General: Alert, oriented, no acute distress, well developed HEENT: Normocephalic and atraumatic Heart: Regular rate and rhythm without murmur Lungs: Clear to auscultation bilaterally with normal effort Abdomen: Soft, nontender, nondistended, normal bowel sounds Neuropsych: Alert, oriented, no focal deficits Skin: Warm and dry without rashes (JOÃO POLLARD MD) Copy Copies To 1: STACIE GARRIDO MD, DEREK MED STUDENT May 21, 2021 23:59 JOÃO POLLARD MD May 22, 2021 00:58
[2021-05-22 00:02] LABS: BASOPHILS # (AUTO) 0.1 10^3/uL (0.0-0.1); BASOPHILS % (AUTO) 1 % (0-10); EOSINOPHILS # (AUTO) 0.6 10^3/uL (0.0-0.3); EOSINOPHILS % (AUTO) 9 % (0-10); HEMATOCRIT 32 % (35-52); LYMPHOCYTES # (AUTO) 1.9 10^3/uL (1.0-4.0); LYMPHOCYTES % (AUTO) 27 % (12-44); MEAN CORPUSCULAR HEMOGLOBIN 24 pg (25-34); MEAN CORPUSCULAR HGB CONC 32 g/dL (32-36); MEAN CORPUSCULAR VOLUME 75 fL (80-99); MEAN PLATELET VOLUME 9.4 fL (9.0-12.2); MONOCYTES # (AUTO) 0.6 10^3/uL (0.0-1.0); MONOCYTES % (AUTO) 8 % (0-12); NEUTROPHILS # (AUTO) 3.9 10^3/uL (1.8-7.8); NEUTROPHILS % (AUTO) 55 % (42-75); PLATELET COUNT 370 10^3/uL (130-400)
[2021-05-22 00:02] LABS: BACTERIA,URINE LARGE /HPF; RBC,URINE 50-100 /HPF
[2021-05-22] MEDS ORDERED: CEPHALEXIN 250 MG (KEFLEX) CAP PO ONE (01:00)
[2021-05-22] MEDS ORDERED: CEPH500T PO (01:00)
[2021-05-22 01:05] VITALS: BP 165/99
[2021-05-22] MEDS ORDERED: MICO24CM4 VG (06:34)
== END 2021-05-22 01:06 | disposition home or self-care (01) ==
LOC: EDUNIT# 23:13 → ER 23:17
DX: O20.8 Other hemorrhage in early pregnancy (principal); N39.0 Urinary tract infection, site not specified; I10 Essential (primary) hypertension; J45.909 Unspecified asthma, uncomplicated; F17.210 Nicotine dependence, cigarettes, uncomplicated; Z3A.00 Weeks of gestation of pregnancy not specified
CPT/HCPCS: 36415; 81000; 84702; 85025; 87077; 87088; 87186

== ENCOUNTER 2022-01-20 13:35 | Emergency (ER) | payer MEDICAID ==
[~2022-01-20] VITALS: Ht 157.5 cm; Wt 77.1 kg
[~2022-01-20 13:35] MED LIST changes: +CEPH500T PO; +MICO24CM4 VG
--- NOTE | 2022-01-20 15:01 | ED GU-Female ---
General Chief Complaint: OB < 20 WEEKS Stated Complaint: 19 WKS PREG/CRAMPING/L LEG PAIN Nursing Triage Note: PT AMB TO TRIAGE WITH COMPLAINT OF ABD CRAMPING AND BACK PAIN. PT IS 19 WEEKS. STATES SHE HAS HAD A UTI HER WHOLE AND IS CURRENTLY ON AMOXICILLIN. DENIES BLEEDING OR SPOTTING. LAST USED METH YESTERDAY. PT THINKS SHE IS HAVING FER GARNER. NO PAIN AT TIME OF TRIAGE. Source: patient Exam Limitations: no limitations History of Present Illness Date Seen by Provider: Jan 20, 2022 Time Seen by Provider: 15:00 Initial Comments Patient is a 36-year-old female who presents the ED for lower abdominal cramping. This started this morning. Described as more tightness across her abdomen in the left buttock. Initially was intermittent became more constant today. Currently being managed by Dr. Brasher. G7, P6 with a history of C- sections and early . Currently on blood pressure medication. History of preeclampsia. No vaginal bleeding, vaginal discharge, urinary symptoms, fever, leg pain with swelling, vomiting, diarrhea, chest pain, shortness of breath. Was recommended come to ED by her [employer] P[facility] for further evaluation Allergies and Home Medications Allergies Coded Allergies: latex (Verified Allergy, Unknown, 09/27/08) tramadol (Unverified Adverse Reaction, Severe, headache, 09/11/10) Patient Home Medication List Home Medication List Reviewed: Yes Cephalexin (Cephalexin) 500 Mg Tablet, 500 MG PO TID Prescribed by: JOÃO DOYLE on 05/22/21 0100 Cephalexin (Cephalexin) 500 Mg Tablet, 500 MG PO TID Prescribed by: YOSHI DWYER on 01/20/22 1700 Miconazole Nitrate (Miconazole 3) 24 Gm Cmb.pf.crm, 24 GM VG UD Prescribed by: JOÃO DOYLE on 05/22/21 0634 Review of Systems Review of Systems Constitutional: No chills, No malaise, No weakness EENTM: No ear discharge, No ear pain, No mouth pain, No mouth swelling Respiratory: No cough, No dyspnea on exertion Cardiovascular: No chest pain, No edema, No Hx of Intervention Gastrointestinal: abdominal pain; No diarrhea, No nausea, No vomiting Genitourinary: denies burning, denies discharge, denies dysuria, denies frequency, denies hematuria Expected Date of Delivery: Jun 16, 2022 Musculoskeletal: back pain; No joint pain, No muscle pain, No muscle stiffness Skin: No change in color All Other Systemes Reviewed Negative Unless Noted: Yes Past Kzqtoev-Ikcmjq-Hyelrk Hx Patient Social History Tobacco Use?: Yes Tobacco type used: Cigarettes Smoking Status: Current Everyday Smoker Use of E-Cig and/or Vaping dev: No Substance use?: Yes Substance type: Methamphetamine Alcohol Use?: No Pt feels they are or have been: No Immunizations Up To Date Tetanus Booster (TDap): Less than 5yrs Seasonal Allergies Seasonal Allergies: No Past Medical History Surgeries: Yes (6 c-sec, carpal tunnel, l knee surg, benign turmor on feet, uretural reflex) Bladder Surgery, Section, Orthopedic Respiratory: Yes Asthma Cardiac: Yes Hypertension Neurological: No Expected Date of Delivery: Jun 16, 2022 Last Menstrual Period: Sep 28, 2021 Reproductive Disorders: No Female Reproductive Disorders: Denies Sexually Transmitted Disease: Yes (age 12 Chlamydia) HIV/AIDS: No Genitourinary: Yes Kidney Infection, Bladder Infection, UTI-Chronic Gastrointestinal: No Musculoskeletal: Yes Back Injury, Chronic Back Pain Endocrine: No HEENT: No Hearing Impairment: Denies Cancer: No Psychosocial: No Integumentary: No Blood Disorders: No Adverse Reaction/Blood Tranf: No Family Medical History Hypertension 19 MOTHER No Pertinent Family Hx Physical Exam Vital Signs Vital Signs - First Documented 01/20/22 14:36 Pulse 90 Resp 15 B/P (MAP) 133/88 (103) Pulse Ox 100 O2 Delivery Room Air Capillary Refill : Less Than 3 Seconds Height, Weight, BMI Height: 5'2.00" Weight: 146lbs. 4.0oz. 66.026522ww; 31.00 BMI Method:Stated General Appearance: WD/WN, no apparent distress HEENT: PERRL/EOMI, normal ENT inspection, TMs normal, pharynx normal Neck: non-tender, full range of motion, supple, normal inspection Cardiovascular: regular rate, rhythm, no edema, no gallop, no JVD, no murmur Respiratory: chest non-tender, lungs clear, normal breath sounds, no respiratory distress Gastrointestinal: normal bowel sounds, non tender, soft, no organomegaly Pelvic: other (Refused exam) Back: normal inspection, no CVA tenderness Extremities: normal range of motion, non-tender, normal inspection, no pedal edema Neurologic/Psychiatric: promotion manager II-XII nml as tested, no motor/sensory deficits, alert, normal mood/affect, oriented x 3 Progress/Results/Core Measures Suspected Sepsis SIRS Temperature: Pulse: 90 Respiratory Rate: 15 Laboratory Tests 01/20/22 15:13: White Blood Count 10.4 Blood Pressure 133 /88 Mean: 103 Laboratory Tests 01/20/22 15:13: Creatinine 0.65, Platelet Count 375, Total Bilirubin 0.1 Results/Orders Lab Results Laboratory Tests Test 01/20/22 15:13 01/20/22 15:26 Range/Units White Blood Count 10.4 4.3-11.0 10^3/uL Red Blood Count 4.12 3.80-5.11 10^6/uL Hemoglobin 9.5 L 11.5-16.0 g/dL Hematocrit 29 L 35-52 % Mean Corpuscular Volume 70 L 80-99 fL Mean Corpuscular Hemoglobin 23 L 25-34 pg Mean Corpuscular Hemoglobin Concent 33 32-36 g/dL Red Cell Distribution Width 19.9 H 10.0-14.5 % Platelet Count 375 130-400 10^3/uL Mean Platelet Volume 8.8 L 9.0-12.2 fL Immature Granulocyte % (Auto) 0 % Neutrophils (%) (Auto) 78 H 42-75 % Lymphocytes (%) (Auto) 12 12-44 % Monocytes (%) (Auto) 5 0-12 % Eosinophils (%) (Auto) 4 0-10 % Basophils (%) (Auto) 1 0-10 % Neutrophils # (Auto) 8.1 H 1.8-7.8 X 10^3 Lymphocytes # (Auto) 1.3 1.0-4.0 X 10^3 Monocytes # (Auto) 0.5 0.0-1.0 X 10^3 Eosinophils # (Auto) 0.5 H 0.0-0.3 10^3/uL Basophils # (Auto) 0.1 0.0-0.1 10^3/uL Immature Granulocyte # (Auto) 0.0 0.0-0.1 10^3/uL Sodium Level 134 L 135-145 MMOL/L Potassium Level 4.3 3.6-5.0 MMOL/L Chloride Level 105 98-107 MMOL/L Carbon Dioxide Level 21 21-32 MMOL/L Anion Gap 8 5-14 MMOL/L Blood Urea Nitrogen 10 7-18 MG/DL Creatinine 0.65 0.60-1.30 MG/DL Estimat Glomerular Filtration Rate 116 BUN/Creatinine Ratio 15 Glucose Level 79 70-105 MG/DL Calcium Level 8.5 8.5-10.1 MG/DL Corrected Calcium 9.3 8.5-10.1 MG/DL Total Bilirubin 0.1 0.1-1.0 MG/DL Aspartate Amino Transf (AST/SGOT) 13 5-34 U/L Alanine Aminotransferase (ALT/SGPT) 7 0-55 U/L Alkaline Phosphatase 65 40-136 U/L Total Protein 6.6 6.4-8.2 GM/DL Albumin 3.0 L 3.2-4.5 GM/DL Human Chorionic Gonadotropin, Quant 31876 H <5 MIU/ML Urine Color YELLOW Urine Clarity CLOUDY Urine pH 6.0 5-9 Urine Specific [place] 1.020 1.016-1.022 Urine Protein NEGATIVE NEGATIVE Urine Glucose (UA) NEGATIVE NEGATIVE Urine Ketones NEGATIVE NEGATIVE Urine Nitrite NEGATIVE NEGATIVE Urine Bilirubin NEGATIVE NEGATIVE Urine Urobilinogen 0.2 < = 1.0 MG/DL Urine Leukocyte Esterase 3+ H NEGATIVE Urine RBC (Auto) TRACE-I H NEGATIVE Urine RBC NONE /HPF Urine WBC 50-100 H /HPF Urine Squamous Epithelial Cells 5-10 /HPF Urine Crystals NONE /LPF Urine Bacteria TRACE /HPF Urine Casts NONE /LPF Urine Mucus NEGATIVE /LPF Urine Culture Indicated YES Micro Results Microbiology 01/20/22 Wet Prep - Final, Complete My Orders Orders - ABEL RICE Cbc With Automated Diff (01/20/22 14:57) Comprehensive Metabolic Panel (01/20/22 14:57) Hcg,Quantitative (01/20/22 14:57) Ua Culture If Indicated (01/20/22 14:57) Wet Prep (01/20/22 14:57) Neis Gulshan Dna Urine Test (01/20/22 14:57) Chlamydia Trachomatis Urine (01/20/22 14:57) Urine Culture (01/20/22 15:26) Us Ob Preg Late(14-40wks)62524 (01/20/22 14:57) Vital Signs/I&O 01/20/22 14:36 Pulse 90 Resp 15 B/P (MAP) 133/88 (103) Pulse Ox 100 O2 Delivery Room Air Capillary Refill : Less Than 3 Seconds Blood Pressure Mean: 103 Departure Communication (Admissions) Patient G7, P6 who presents ED with lower abdominal cramping. Started today. Last menstrual cycle 17-18 weeks ago. Currently being monitored by Dr. Brasher. Not currently taking prenatals. She reports smoking. Discussed smoking cessation. Refused pelvic exam. Discussed limitations without proper exam. She acknowledges. Wet mount was unremarkable. Urinalysis concerning for infection. 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 Frequent UTIs. White blood count noted 50-100 and urine. Will discharge with Keflex. No urinary symptoms. She has no abdominal tenderness. Afebrile. Vital signs stable. Lab work was otherwise unremarkable besides a hemoglobin 9.5. History of chronic anemia. This will need to be discussed further with her primary care physician. States she is currently on a blood pressure medication. She cannot recall the medication or dose. She is normotensive here. No vaginal bleeding. Beta quant near 21,000. Ultrasound intrauterine 17 weeks. Normal anterior placenta. Breech position. Cardiac activity noted. Patient scheduled follow-up with her [employer] PERSON in 2 days. Will discharge with Keflex. Return precaution were discussed with patient Impression Primary Impression: Urinary tract infection Additional Impression: Abdominal pain during Disposition: 01 HOME, SELF-CARE Condition: Stable Departure-Patient Inst. Decision time for Depature: 17:00 Referrals: CONRAD BRASHER MD (PCP/Family) Primary Care Physician Patient Instructions: Urinary Tract Infection, Adult (DC) Scripts Cephalexin (Cephalexin) 500 Mg Tablet 500 MG PO TID for 10 Days, #30 TAB Prov: ABEL RICE 01/20/22 ABEL RICE Jan 20, 2022 15:01
[2022-01-20 15:20] LABS: BASOPHILS # (AUTO) 0.1 10^3/uL (0.0-0.1); BASOPHILS % (AUTO) 1 % (0-10); EOSINOPHILS # (AUTO) 0.5 10^3/uL (0.0-0.3); EOSINOPHILS % (AUTO) 4 % (0-10); HEMATOCRIT 29 % (35-52); HEMOGLOBIN 9.5 g/dL (11.5-16.0); LYMPHOCYTES # (AUTO) 1.3 X 10^3 (1.0-4.0); LYMPHOCYTES % (AUTO) 12 % (12-44); MEAN CORPUSCULAR HEMOGLOBIN 23 pg (25-34); MEAN CORPUSCULAR HGB CONC 33 g/dL (32-36); MEAN CORPUSCULAR VOLUME 70 fL (80-99); MEAN PLATELET VOLUME 8.8 fL (9.0-12.2); MONOCYTES # (AUTO) 0.5 X 10^3 (0.0-1.0); MONOCYTES % (AUTO) 5 % (0-12); NEUTROPHILS # (AUTO) 8.1 X 10^3 (1.8-7.8); NEUTROPHILS % (AUTO) 78 % (42-75); PLATELET COUNT 375 10^3/uL (130-400); WHITE BLOOD COUNT 10.4 10^3/uL (4.3-11.0)
[2022-01-20 15:31] LABS: BILIRUBIN,URINE NEGATIVE (NEGATIVE); CLARITY,URINE CLOUDY; COLOR,URINE YELLOW; GLUCOSE, URINE (UA) NEGATIVE (NEGATIVE); KETONES,URINE NEGATIVE (NEGATIVE); LEUKOCYTE ESTERASE ,URINE 3+ (NEGATIVE); NITRITE,URINE NEGATIVE (NEGATIVE); PROTEIN,URINE NEGATIVE (NEGATIVE)
[2022-01-20 15:33] LABS: POTASSIUM 4.3 MMOL/L (3.6-5.0)
[2022-01-20 15:34] LABS: CALCIUM 8.5 MG/DL (8.5-10.1)
[2022-01-20 15:35] LABS: TOTAL PROTEIN 6.6 GM/DL (6.4-8.2)
[2022-01-20 15:37] LABS: BILIRUBIN,TOTAL 0.1 MG/DL (0.1-1.0)
[2022-01-20 15:39] LABS: CREATININE SERUM 0.65 MG/DL (0.60-1.30)
[2022-01-20 15:40] LABS: BACTERIA,URINE TRACE /HPF; WBC,URINE 50-100 /HPF
--- NOTE | 2022-01-20 16:04 | Diagnostic Imaging Report ---
INDICATION: Pelvic pain. TECHNIQUE: Multiple real-time grayscale images were obtained over the gravid uterus. COMPARISON: None FINDINGS: [place] viable IUP measures 17 weeks 3 days with sonographic date of confinement 06/27/2022. heart rate 143 beats per minute. The placenta is anterior and appeared normal. Amniotic fluid volume appeared normal. There is no abruption or previa. IMPRESSION: Early [place] viable IUP measures 17 weeks 3 days in breech position with normal anterior placenta. Biometrical measurements are as follows: Biparietal 3.76 cm, age 17 weeks 4 days. Head circumference 13.94 cm, age 17 weeks 3 days. Abdominal circumference 11.62 cm, age 17 weeks 3 days. Femur length 2.29 cm, age 17 weeks 0 days. Sonographic estimate age: 17 weeks 3 days. Sonographic estimated date of delivery: 06/27/2022. Estimated Weight: 184 gm (+/- 27 gm). LMP percentile: <2%. heart rate: 143 beats per minute. number: 1 of 1. Dictated by: Dictated on workstation # [id number]
[2022-01-20] MEDS ORDERED: CEPH500T PO (17:00)
[2022-01-20 17:06] VITALS: BP 125/81
== END 2022-01-20 17:06 | disposition home or self-care (01) ==
LOC: EDUNIT# 13:35 → ER 13:36
DX: O23.42 Unspecified infection of urinary tract in pregnancy, second trimester (principal); J45.909 Unspecified asthma, uncomplicated; I10 Essential (primary) hypertension; F17.210 Nicotine dependence, cigarettes, uncomplicated; Z3A.19 19 weeks gestation of pregnancy
CPT/HCPCS: 36415; 76805; 80053; 81000; 84702; 85025; 87088; 87210; 87491; 87591

== ENCOUNTER 2022-04-08 15:25 | Observation (INO) | payer MEDICAID ==
[~2022-04-08] VITALS: Ht 157.5 cm; Wt 84.9 kg
[2022-04-08] VITALS (12 sets, daily range): BP systolic 112–168; BP diastolic 56–95
[2022-04-08 16:14] LABS: BILIRUBIN,URINE NEGATIVE (NEGATIVE); CLARITY,URINE SL CLOUDY; COLOR,URINE YELLOW; GLUCOSE, URINE (UA) NEGATIVE (NEGATIVE); KETONES,URINE NEGATIVE (NEGATIVE); LEUKOCYTE ESTERASE ,URINE 2+ (NEGATIVE); NITRITE,URINE NEGATIVE (NEGATIVE); PROTEIN,URINE 1+ (NEGATIVE)
[2022-04-08 16:27] LABS: RBC,URINE 0-2 /HPF; WBC,URINE >100 /HPF
[2022-04-08 16:28] LABS: BACTERIA,URINE FEW /HPF; CALCIUM OXALATE CRYSTALS,UR MODERATE /LPF; SQUAMOUS EPITHELIAL CELL,UR >50 /HPF; TRICHOMONAS,URINE FEW /HPF
[2022-04-08 16:34] LABS: AMPHETAMINE SCREEN, URINE POSITIVE (NEGATIVE); BARBITURATE SCREEN URINE NEGATIVE (NEGATIVE); BENZODIAZEPINES SCREEN URINE NEGATIVE (NEGATIVE); CANNABINOID SCREEN, URINE NEGATIVE (NEGATIVE); COCAINE SCREEN URINE NEGATIVE (NEGATIVE); METHADONE STAT NEGATIVE (NEGATIVE); OPIATE SCREEN URINE NEGATIVE (NEGATIVE); OXYCODONE STAT NEGATIVE (NEGATIVE); PROPOXYPHENE STAT NEGATIVE (NEGATIVE); TRICYCLIC ANTIDEPRESSANTS SCRE NEGATIVE (NEGATIVE)
[2022-04-08 16:42] LABS: URINE PROTEIN FOR RATIO ONLY 35 MG/DL (6-12)
[2022-04-08 16:48] LABS: BASOPHILS % (AUTO) 0 % (0-10); EOSINOPHILS # (AUTO) 0.1 10^3/uL (0.0-0.3); EOSINOPHILS % (AUTO) 1 % (0-10); HEMATOCRIT 27 % (35-52); HEMOGLOBIN 8.5 g/dL (11.5-16.0); LYMPHOCYTES # (AUTO) 1.4 10^3/uL (1.0-4.0); LYMPHOCYTES % (AUTO) 13 % (12-44); MEAN CORPUSCULAR HEMOGLOBIN 22 pg (25-34); MEAN CORPUSCULAR HGB CONC 32 g/dL (32-36); MEAN CORPUSCULAR VOLUME 68 fL (80-99); MONOCYTES # (AUTO) 0.8 10^3/uL (0.0-1.0); MONOCYTES % (AUTO) 8 % (0-12); NEUTROPHILS # (AUTO) 8.2 10^3/uL (1.8-7.8); NEUTROPHILS % (AUTO) 77 % (42-75); PLATELET COUNT 387 10^3/uL (130-400); WHITE BLOOD COUNT 10.6 10^3/uL (4.3-11.0)
[2022-04-08 17:06] LABS: POTASSIUM 3.8 MMOL/L (3.6-5.0)
[2022-04-08 17:07] LABS: CALCIUM 8.5 MG/DL (8.5-10.1)
[2022-04-08 17:08] LABS: TOTAL PROTEIN 6.2 GM/DL (6.4-8.2)
[2022-04-08 17:10] LABS: BILIRUBIN,TOTAL 0.2 MG/DL (0.1-1.0)
[2022-04-08 17:12] LABS: CREATININE SERUM 0.7 MG/DL (0.60-1.30)
[2022-04-08 17:15] LABS: URIC ACID 4.7 MG/DL (2.6-7.2)
[2022-04-08 17:16] LABS: URINE CREATININE FOR RATIO 242 MG/DL (30-125)
[2022-04-08] MEDS ORDERED: IRON SUCROSE 200 MG/10 ML (VENOFER) VIAL IV NR (18:00)
--- NOTE | 2022-04-08 18:02 | History & Physical-OB/GYN ---
SHANICE PONCE A MED STUDENT 04/08/22 1802: OB - Chief Complaint & HPI Date/Time Date of Admission: Date of Admission: Date seen by a Provider: April 08, 2022 Time Seen by a Provider: 05:45 Chief Complaint/History OB-Reason for Admission/Chief: Chronic HTN, anemia in and trichomonas Hx : 13 Hx Para: 6 Expected Date of Delivery: Jun 28, 2022 Gestational Age in Weeks: 28 Gestational Age in Days: 3 Other reason for admission: Chronic HTN Other 36 yo female with recent hx of methamphetamine abuse and elevated blood pressure. Pt reported to clinic for an appt today and was found to have elevated BP and significant proteinuria. Pt was advised to come to hospital for observation. Pt admits to meth abuse within the last few days, but is actively seeking treatment. Pt reports she is currently having SOA, dizziness, blurry vision, headache palpitations and swelling. Pt is compliant with Labetolol and aspirin for HTN in , but is unsure of the dosage. Pt admits to tobacco use of 1-1 1/2 ppd. Pt denies fever, chills, chest pain, dysuria or frequency. Allergies and Home Medications Allergies Coded Allergies: latex (Verified Allergy, Unknown, 09/27/08) tramadol (Unverified Adverse Reaction, Severe, headache, 09/11/10) Patient Home Medication List Cephalexin (Cephalexin) 500 Mg Tablet, 500 MG PO TID Prescribed by: JOÃO DOYLE on 05/22/21 0100 Cephalexin (Cephalexin) 500 Mg Tablet, 500 MG PO TID Prescribed by: YOSHI DWYER on 01/20/22 1700 Miconazole Nitrate (Miconazole 3) 24 Gm Cmb.pf.crm, 24 GM VG UD Prescribed by: JOÃO DOYLE on 05/22/21 0634 OB - History Hx of Present Care: Yes Obstetrical Complications: Gestational Hypertension Obstetrical History Hx : 13 Hx Para: 6 Hx Termination: No 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) Hx Stillbirth: No Hx Complication: Yes (infection) Hx Induced Hypertens: No Hx Maternal Gestational Diabet: No Delivery History Hx Dystocia: No Hx Large For Gestational Age I: No Hx Small for Gestational Age I: No Hx Section: Yes (X 4) Hx Vaginal Delivery Post C-Sec: No Hx Blood Disorders: No Adverse Rxn to Tranfusion: No Social History/Family History Alcohol Use: Denies Use Recreational Drug Use: Yes 2nd Hand Smoke Exposure: Yes Immunizations Tetanus Booster (TDap): Less than 5yrs OB - Admission Exam Physical Exam Vitals: Vital Signs 04/08/22 16:52 Temp 37.0 Pulse 96 Resp 18 Pulse Ox 98 O2 Delivery Room Air HEENT: PERRLA Heart: Rhythm Normal Abdomen: Non tender Extremities: Edema Reflexes: Normal Heart Rate: 150's Contractions on Admission: None Labs Laboratory Tests Test 04/08/22 15:35 04/08/22 16:37 Range/Units Urine Color YELLOW Urine Clarity SL CLOUDY Urine pH 6.0 5-9 Urine Specific [place] 1.025 H 1.016-1.022 Urine Protein 35 H 6-12 MG/DL Urine Glucose (UA) NEGATIVE NEGATIVE Urine Ketones NEGATIVE NEGATIVE Urine Nitrite NEGATIVE NEGATIVE Urine Bilirubin NEGATIVE NEGATIVE Urine Urobilinogen 0.2 < = 1.0 MG/DL Urine Leukocyte Esterase 2+ H NEGATIVE Urine RBC (Auto) TRACE-I H NEGATIVE Urine RBC 0-2 /HPF Urine WBC >100 H /HPF Urine Squamous Epithelial Cells >50 H /HPF Urine Crystals PRESENT H /LPF Urine Calcium Oxalate Crystals MODERATE H /LPF Urine Bacteria FEW H /HPF Urine Casts NONE /LPF Urine Mucus NEGATIVE /LPF Urine Trichomonas FEW H /HPF Urine Culture Indicated YES Urine Creatinine 242 H 30-125 MG/DL Urine Protein/Creatinine Ratio 0.14 Urine Opiates Screen NEGATIVE NEGATIVE Urine Oxycodone Screen NEGATIVE NEGATIVE Urine Methadone Screen NEGATIVE NEGATIVE Urine Propoxyphene Screen NEGATIVE NEGATIVE Urine Barbiturates Screen NEGATIVE NEGATIVE Ur Tricyclic Antidepressants Screen NEGATIVE NEGATIVE Urine Phencyclidine Screen NEGATIVE NEGATIVE Urine Amphetamines Screen POSITIVE H NEGATIVE Urine Methamphetamines Screen POSITIVE H NEGATIVE Urine Benzodiazepines Screen NEGATIVE NEGATIVE Urine Cocaine Screen NEGATIVE NEGATIVE Urine Cannabinoids Screen NEGATIVE NEGATIVE White Blood Count 10.6 4.3-11.0 10^3/uL Red Blood Count 3.90 3.80-5.11 10^6/uL Hemoglobin 8.5 L 11.5-16.0 g/dL Hematocrit 27 L 35-52 % Mean Corpuscular Volume 68 L 80-99 fL Mean Corpuscular Hemoglobin 22 L 25-34 pg Mean Corpuscular Hemoglobin Concent 32 32-36 g/dL Red Cell Distribution Width 18.6 H 10.0-14.5 % Platelet Count 387 130-400 10^3/uL Mean Platelet Volume 9.0 9.0-12.2 fL Immature Granulocyte % (Auto) 1 % Neutrophils (%) (Auto) 77 H 42-75 % Lymphocytes (%) (Auto) 13 12-44 % Monocytes (%) (Auto) 8 0-12 % Eosinophils (%) (Auto) 1 0-10 % Basophils (%) (Auto) 0 0-10 % Neutrophils # (Auto) 8.2 H 1.8-7.8 10^3/uL Lymphocytes # (Auto) 1.4 1.0-4.0 10^3/uL Monocytes # (Auto) 0.8 0.0-1.0 10^3/uL Eosinophils # (Auto) 0.1 0.0-0.3 10^3/uL Basophils # (Auto) 0.0 0.0-0.1 10^3/uL Immature Granulocyte # (Auto) 0.1 0.0-0.1 10^3/uL Sodium Level 137 135-145 MMOL/L Potassium Level 3.8 3.6-5.0 MMOL/L Chloride Level 107 98-107 MMOL/L Carbon Dioxide Level 21 21-32 MMOL/L Anion Gap 9 5-14 MMOL/L Blood Urea Nitrogen 11 7-18 MG/DL Creatinine 0.70 0.60-1.30 MG/DL Estimat Glomerular Filtration Rate 114 BUN/Creatinine Ratio 16 Glucose Level 82 70-105 MG/DL Uric Acid 4.7 2.6-7.2 MG/DL Calcium Level 8.5 8.5-10.1 MG/DL Corrected Calcium 9.3 8.5-10.1 MG/DL Total Bilirubin 0.2 0.1-1.0 MG/DL Aspartate Amino Transf (AST/SGOT) 14 5-34 U/L Alanine Aminotransferase (ALT/SGPT) 7 0-55 U/L Alkaline Phosphatase 87 40-136 U/L Lactate Dehydrogenase 157 125-220 U/L Total Protein 6.2 L 6.4-8.2 GM/DL Albumin 3.0 L 3.2-4.5 GM/DL OB - Assessment/Plan/Diagnosis Assessment Assessment: observation Admission Dx Chronic Hypertension Anemia in Trichomoniasis Admission Status: Observation Plan Plan: Expectant Management Other Plan Chronic HTN -Started Labetolol 100mg BID -BUN/Cr ratio pending Anemia in -Venefer Trichomoniasis -Metronidazole Methamphetamine Abuse -Discussed importance of seeking treatment DARVIN BANG MD 04/08/222121: Allergies and Home Medications Allergies Coded Allergies: latex (Verified Allergy, Unknown, 09/27/08) tramadol (Unverified Adverse Reaction, Severe, headache, 09/11/10) Patient Home Medication List Home Medication List Reviewed: Yes Cephalexin (Cephalexin) 500 Mg Tablet, 500 MG PO TID Prescribed by: JOÃO DOYLE on 05/22/21 0100 Cephalexin (Cephalexin) 500 Mg Tablet, 500 MG PO TID Prescribed by: OYSHI DWYER on 01/20/22 1700 Miconazole Nitrate (Miconazole 3) 24 Gm Cmb.pf.crm, 24 GM VG UD Prescribed by: JOÃO DOYLE on 05/22/21 0634 OB - History Hx of Present Obstetrical Complications: Gestational Hypertension, Other (Inconsistent prenat al care) Patient Past Medical History HTN Substance abuse OB - Admission Exam Physical Exam HEENT: NCAT Heart: Rhythm Normal Lungs: Clear Abdomen: Gravid Extremities: Edema Reflexes: Normal Heart Rate: 150's Accelerations: Accelerations Present Decelerations: No Decelerations Contractions on Admission: None OB - Assessment/Plan/Diagnosis Assessment Admission Status: Observation Supervisory-Addendum Brief Verification & Attestation Participated in pt care: history, physical Personally performed: exam, history Care discussed with: Medical Student Procedures: n/a Verification and Attestation of Medical Student E/M Service A medical student performed and documented this service in my presence. I reviewed and verified all information documented by the medical student and made modifications to such information, when appropriate. I personally performed the physical exam and medical decision making. Darvin Bang, April 08, 2022,21:19 Third Trimester 28 week gestation Chronic HTN vs GHTN Limited care Anemia in Substance abuse in H/o C section, currently Trichamonas in urine Patient to establish with Dr Larson for OB care Restarted Labetalol, pre eclampsia labs Will give Venefer x 1 dose today Offered treatment for substance abuse, SW consult Flagyl for Trich infection Admit for observation SHANICE PONCE MED STUDENT April 08, 2022 18:02 DARVIN BANG MD April 08, 2022 21:22
[2022-04-08] MEDS: LABETALOL 200 MG (NORMODYNE) TAB PO SCH (18:24)
[2022-04-08] MEDS: metroNIDAZOLE 500 MG (FLAGYL) TAB PO SCH (21:26)
[2022-04-09 04:32] VITALS: BP 124/60
[2022-04-09] MEDS: LABETALOL 200 MG (NORMODYNE) TAB PO SCH (06:27)
[2022-04-09 09:44] VITALS: BP 123/68
--- NOTE | 2022-04-09 10:16 | Discharge Summary ---
Diagnosis/Chief Complaint Date of Admission April 08, 2022 at 17:00 Date of Discharge 04/09/22 Admission Diagnosis Admission Diagnosis Elevated blood pressures in 28 week gestations Limited care Substance abuse in Trichomonal infection Anemia in Discharge Diagnosis See above Discharge Summary-Simple/Stand Discharge Physical Examination Allergies: Coded Allergies: latex (Verified Allergy, Unknown, 09/27/08) tramadol (Unverified Adverse Reaction, Severe, headache, 09/11/10) Vitals & I&Os Vital Sign - Last 12Hours Date Time Temp Pulse Resp B/P (MAP) Pulse Ox O2 Delivery O2 Flow Rate FiO2 04/09/22 04:32 36.2 77 18 124/60 (81) 98 Room Air General Appearance: Alert, Oriented X3, No Acute Distress Respiratory: Clear to Auscultation, Normal Air Movement Cardiovascular: Regular Rate, No Murmurs Abdominal: Normal Bowel Sounds, Soft, No Tenderness, No Masses Extremities: No Edema, No Tenderness/Swelling Neuro: Normal Speech Hospital Course Was the Problem List Reviewed?: Yes See final discharge diagnosis. Discussion & Recommendations See H&P Discharge Condition at discharge Stable Instructions to patient/family Please see electronic discharge instructions given to patient. Discharge Medications Reviewed and agree with Discharge Medication list on patient's Discharge Instruction sheet DARVIN BANG MD April 09, 2022 10:16
[2022-04-09] MEDS ORDERED: LABE200T7 PO (10:19)
[2022-04-09] MEDS ORDERED: CEFD300C3 PO (10:19)
[2022-04-09] MEDS ORDERED: ASPI-999 PO (10:19)
[2022-04-09] MEDS ORDERED: FERR325T18 PO (10:19)
[2022-04-09] MEDS ORDERED: METR-145 PO (10:19)
--- NOTE | 2022-04-09 10:21 | Discharge Summary ---
Discharge Inst-[facility] Reconcile Patient Problems Problems Reviewed?: Yes Depart Medications New, Converted or Re-Newed RX: Transmitted to Pharmacy New Medications: Aspirin (Aspirin) 81 Mg Tab.chew 81 MG PO DAILY, #30 TAB Cefdinir (Cefdinir) 300 Mg Capsule 300 MG PO BID for 5 Days, #10 CAP Ferrous Sulfate (Ferrous Sulfate) 325 Mg (65 Mg Iron) Tablet 325 MG PO DAILY, #30 TAB Labetalol HCl (Labetalol HCl) 200 Mg Tablet 100 MG PO DAILY, #30 TAB Metronidazole (Metronidazole) 500 Mg Tablet 500 MG PO BID, #10 TAB Discontinued Medications: Cephalexin (Cephalexin) 500 Mg Tablet 500 MG PO TID, #20 TAB Cephalexin (Cephalexin) 500 Mg Tablet 500 MG PO TID for 10 Days, #30 TAB Miconazole Nitrate (Miconazole 3) 24 Gm Cmb.pf.crm 24 GM VG UD, #1 TUBE Use every other day while on Keflex to prevent yeast infection. Note: miconazole is preferred to Diflucan in 1st trimester. Follow Up/Instructions Goal/Follow Up: Needs establish appt with Dr Larson Activity Activity: Activity as Tolerated Diet Discharge Diet: No Restrictions Symptoms to Report to : Numbness/Tingling, Weight Gain Over 2 Pounds DARVIN BANG MD April 09, 2022 10:21
[2022-04-09] MEDS ORDERED: cefTRIAXone 1 GM PRE-MIX 50 ML IV ONE (10:30)
[2022-04-09] MEDS: metroNIDAZOLE 500 MG (FLAGYL) TAB PO SCH (10:49)
[2022-06-03] MEDS ORDERED: FERR325T18 PO (16:19)
[2022-06-03] MEDS ORDERED: RT-ALBUINH IH (16:22)
== END 2022-04-09 12:30 | disposition home or self-care (01) ==
LOC: WSo 15:25 → LDRP 15:25 → WSo 17:00 → LDRP 17:00 → UNDOADMOB 17:00 → LDRP 04-09 11:40 → UNDODISOB 04-09 11:40
PROVIDERS: ADMIT Family Medicine; ATTEND Family Medicine
DX: O99.013 Anemia complicating pregnancy, third trimester (principal); O23.593 Infection of other part of genital tract in pregnancy, third trimester; Z3A.28 28 weeks gestation of pregnancy; O16.3 Unspecified maternal hypertension, third trimester; O99.323 Drug use complicating pregnancy, third trimester
CPT/HCPCS: 80053; 80306; 81000; 82570; 83615; 84156; 84550; 85025; 87077; 87088; 87186; 96374; 96375; G0378; G0379; 36415

== ENCOUNTER 2022-06-02 09:30 | Outpatient (CLI) | payer MEDICAID ==
[2022-06-02] VITALS (8 sets, daily range): BP systolic 122–151; BP diastolic 61–102
[~2022-06-02] VITALS: Ht 159 cm; Wt 87.6 kg
[~2022-06-02 09:30] MED LIST changes: +ASPI-999 PO; +CEFD300C3 PO; +FERR325T18 PO; +LABE200T7 PO; +METR-145 PO
[2022-06-02 09:52] LABS: BILIRUBIN,URINE NEGATIVE (NEGATIVE); CLARITY,URINE CLEAR; COLOR,URINE YELLOW; GLUCOSE, URINE (UA) NEGATIVE (NEGATIVE); KETONES,URINE NEGATIVE (NEGATIVE); LEUKOCYTE ESTERASE ,URINE NEGATIVE (NEGATIVE); NITRITE,URINE NEGATIVE (NEGATIVE); PROTEIN,URINE NEGATIVE (NEGATIVE)
[2022-06-02 09:58] LABS: BACTERIA,URINE NEGATIVE /HPF; WBC,URINE 0-2 /HPF
[2022-06-02 10:22] LABS: AMPHETAMINE SCREEN, URINE NEGATIVE (NEGATIVE); BARBITURATE SCREEN URINE NEGATIVE (NEGATIVE); BENZODIAZEPINES SCREEN URINE NEGATIVE (NEGATIVE); CANNABINOID SCREEN, URINE NEGATIVE (NEGATIVE); COCAINE SCREEN URINE NEGATIVE (NEGATIVE); METHADONE STAT NEGATIVE (NEGATIVE); OPIATE SCREEN URINE NEGATIVE (NEGATIVE); OXYCODONE STAT NEGATIVE (NEGATIVE); PROPOXYPHENE STAT NEGATIVE (NEGATIVE); TRICYCLIC ANTIDEPRESSANTS SCRE NEGATIVE (NEGATIVE)
[2022-06-02 10:53] LABS: BASOPHILS % (AUTO) 0 % (0-10); EOSINOPHILS # (AUTO) 0.3 10^3/uL (0.0-0.3); EOSINOPHILS % (AUTO) 3 % (0-10); HEMATOCRIT 32 % (35-52); LYMPHOCYTES # (AUTO) 1.1 10^3/uL (1.0-4.0); LYMPHOCYTES % (AUTO) 11 % (12-44); MEAN CORPUSCULAR HEMOGLOBIN 22 pg (25-34); MEAN CORPUSCULAR HGB CONC 31 g/dL (32-36); MEAN CORPUSCULAR VOLUME 72 fL (80-99); MEAN PLATELET VOLUME 9.9 fL (9.0-12.2); MONOCYTES # (AUTO) 0.5 10^3/uL (0.0-1.0); MONOCYTES % (AUTO) 5 % (0-12); NEUTROPHILS # (AUTO) 7.8 10^3/uL (1.8-7.8); NEUTROPHILS % (AUTO) 80 % (42-75); PLATELET COUNT 341 10^3/uL (130-400); WHITE BLOOD COUNT 9.8 10^3/uL (4.3-11.0)
[2022-06-02] MEDS ORDERED: LABE100T6 PO (10:58)
[2022-06-02 11:10] LABS: BILIRUBIN,TOTAL 0.2 MG/DL (0.1-1.0); CALCIUM 8.7 MG/DL (8.5-10.1); CREATININE SERUM 0.7 MG/DL (0.60-1.30); TOTAL PROTEIN 6.5 GM/DL (6.4-8.2); URIC ACID 4.1 MG/DL (2.6-7.2)
[2022-06-02 11:15] LABS: ANISOCYTOSIS MARKED; BASOPHILS % (MANUAL) 2 %; ELLIPT/OVALOCYTES SLIGHT; EOSINOPHILS % (MANUAL) 3 %; HYPOCHROMASIA MODERATE; LYMPHOCYTES % (MANUAL) 13 %; MICROCYTOSIS MODERATE; MONOCYTES % (MANUAL) 4 %; NEUTROPHILS % (MANUAL) 78 %; POIKILOCYTOSIS SLIGHT; POLYCHROMASIA SLIGHT; SPHEROCYTES SLIGHT
[2022-06-02] MEDS ORDERED: LABETALOL 200 MG (NORMODYNE) TAB PO SCH (21:00)
[2022-06-03] MEDS ORDERED: FERR325T18 PO (16:19)
[2022-06-03] MEDS ORDERED: RT-ALBUINH IH (16:22)
--- NOTE | 2022-06-04 07:59 | Physician Query-Final Dx ---
JUAN,06/04/22 0759: Clinic Account Progress/Dx Physician Query: Please give diagnosis Please include # weeks gestation Date of Service Jun 02, 2022 at 09:30 CONRAD BRASHER MD 06/04/220: Clinic Account Progress/Dx DIAGNOSIS: Diagnosis Hypertension in 36 weeks gestation Progress Note: Pt admitted observation for elevated BP, had not sought care since last hospitalization in March when she was planned to follow up with Dr. Santana due to history of multiple c-sections and plan to continue care with him. Labs inpatient were negative for preeclampsia, and BP was elevated but not at severe levels, but given some severe level BP noted at home, recommended 24 hour urine collection and continued BP monitoring with biophysical profile and growth US in the morning, but later in the evening she requested to go home and reported she had appt with Dr. Santana the next day. JUAN,NovJun 04, 2022 07:59 CONRAD BRASHER MD Jun 04, 2022 21:20
== END 2022-06-02 18:50 ==
LOC: WSo 09:30 → LDRP 09:32 → WSo 18:50
PROVIDERS: ATTEND Family Medicine
DX: Z34.93 Encounter for supervision of normal pregnancy, unspecified, third trimester (principal); Z3A.36 36 weeks gestation of pregnancy
CPT/HCPCS: 36415; 80053; 80306; 81000; 82570; 83615; 84156; 84550; 85007; 85027; 99213

== ENCOUNTER 2022-06-03 12:10 | Inpatient (IN) | payer MEDICAID ==
[2022-06-03] VITALS (7 sets, daily range): BP systolic 119–146; BP diastolic 86–93
[~2022-06-03] VITALS: Ht 157.5 cm; Wt 87.2 kg
[~2022-06-03 12:10] MED LIST changes: +LABE100T6 PO
[2022-06-03 12:52] LABS: BILIRUBIN,URINE NEGATIVE (NEGATIVE); CLARITY,URINE CLEAR; COLOR,URINE YELLOW; GLUCOSE, URINE (UA) NEGATIVE (NEGATIVE); KETONES,URINE NEGATIVE (NEGATIVE); LEUKOCYTE ESTERASE ,URINE 1+ (NEGATIVE); NITRITE,URINE NEGATIVE (NEGATIVE); PROTEIN,URINE 1+ (NEGATIVE)
[2022-06-03 13:05] LABS: BACTERIA,URINE TRACE /HPF; SQUAMOUS EPITHELIAL CELL,UR 25-50 /HPF
[2022-06-03 13:13] LABS: BASOPHILS % (AUTO) 0 % (0-10); EOSINOPHILS # (AUTO) 0.3 10^3/uL (0.0-0.3); EOSINOPHILS % (AUTO) 3 % (0-10); HEMATOCRIT 33 % (35-52); HEMOGLOBIN 10.5 g/dL (11.5-16.0); LYMPHOCYTES # (AUTO) 1.2 10^3/uL (1.0-4.0); LYMPHOCYTES % (AUTO) 12 % (12-44); MEAN CORPUSCULAR HEMOGLOBIN 22 pg (25-34); MEAN CORPUSCULAR HGB CONC 32 g/dL (32-36); MEAN CORPUSCULAR VOLUME 70 fL (80-99); MEAN PLATELET VOLUME 9.9 fL (9.0-12.2); MONOCYTES # (AUTO) 0.6 10^3/uL (0.0-1.0); MONOCYTES % (AUTO) 5 % (0-12); NEUTROPHILS # (AUTO) 8.2 10^3/uL (1.8-7.8); NEUTROPHILS % (AUTO) 79 % (42-75); PLATELET COUNT 393 10^3/uL (130-400); WHITE BLOOD COUNT 10.4 10^3/uL (4.3-11.0)
[2022-06-03] MEDS: D5 LR IV SOLUTION 1,000 ML IV SCH (13:24)
[2022-06-03 13:26] LABS: ALBUMIN 3.3 GM/DL (3.2-4.5); POTASSIUM 3.9 MMOL/L (3.6-5.0)
[2022-06-03 13:27] LABS: CALCIUM 9.1 MG/DL (8.5-10.1)
[2022-06-03 13:29] LABS: TOTAL PROTEIN 6.9 GM/DL (6.4-8.2)
[2022-06-03 13:30] LABS: BILIRUBIN,TOTAL 0.4 MG/DL (0.1-1.0)
[2022-06-03 13:32] LABS: CREATININE SERUM 0.72 MG/DL (0.60-1.30)
[2022-06-03 13:35] LABS: URIC ACID 4.8 MG/DL (2.6-7.2)
--- NOTE | 2022-06-03 15:02 | Diagnostic Imaging Report ---
INDICATION: Pre-eclampsia. TECHNIQUE: Multiple real-time grayscale images were obtained over the gravid uterus. COMPARISON: None FINDINGS: There is a single live fetus in a cephalic presentation. heart rate was recorded at 128 BPM. Placenta is anterior. Amniotic fluid index is 19.5 cm. Cervical length is 3.7 cm. Biophysical profile was performed with an overall score of 6/8. Two-point deduction was given for lack of breathing movements. Biometrical measurements are as follows: Biparietal 8.65 cm, age 35 weeks 0 days. Head circumference 32.74 cm, age 37 weeks 2 days. Abdominal circumference 31.63 cm, age 35 weeks 4 days. Femur length 6.77 cm, age 34 weeks 6 days. Sonographic estimate age: 35 weeks 5 days. Sonographic estimated date of delivery: 07/03/2022. Estimated Weight: 2683 gm (+/- 392 gm). LMP percentile: 28%. heart rate: 128 beats per minute. number: 1 of 1. IMPRESSION: 1. Single live IUP of approximately 35-36 weeks gestational age. 2. Biophysical profile score 6/8. Dictated by: Dictated on workstation # [id number]
[2022-06-03] MEDS ORDERED: FERR325T18 PO ×2 (16:19)
[2022-06-03] MEDS ORDERED: RT-ALBUINH IH ×2 (16:22)
--- NOTE | 2022-06-03 19:56 | Progress Note ---
Standard Progress Note Progress Notes/Assess & Plan Date Seen by a Provider: Jun 03, 2022 Time Seen by a Provider: 16:25 Progress/Assessment & Plan Patient seen and examined. Lab / VS / Sono reviewed Dictation admit H&P pending. CHAD BOO MD Jun 03, 2022 19:56
[2022-06-03] MEDS: LABETALOL 200 MG (NORMODYNE) TAB PO SCH (22:46)
[2022-06-04] MEDS: D5 LR IV SOLUTION 1,000 ML IV SCH ×2 (02:26→22:54)
[2022-06-04 03:00] VITALS: BP 146/75
[2022-06-04 07:40] VITALS: BP 119/79
[2022-06-04] MEDS: LABETALOL 200 MG (NORMODYNE) TAB PO SCH ×2 (09:44→22:49)
[2022-06-04 12:30] VITALS: BP 123/77
[2022-06-04] MEDS ORDERED: hydrOXYzine (ATARAX) 10 MG TAB PO ONE (14:30)
--- NOTE | 2022-06-04 14:45 | History & Physical ---
History and Physical Date Seen by Provider: Jun 03, 2022 Time Seen by Provider: 16:24 This is a late dictation for patient seen last evening on admission from my office This patient is a 36-year-old multigravid female who has had 2 previous C- sections. She had care through [facility] with Dr. Bang. Patient reports that she was diagnosed 2 months ago with preeclampsia and also has been on labetalol for elevated blood pressure sometimes running as high as 160-200 over the 110s to 120s. Patient was also seen in [facility] within the last 2 months and was diagnosed with preeclampsia there. She has been managed outpatient. In clinic patient was complaining of the feeling of impending doom. She complained of headache she complained of right upper quadrant pain. She complained of tearing sensation across her abdomen both upper and lower.She did have elevated blood pressure in my clinic and she also had elevated proteinuria. Patient's history is significant for 2 previous C-sections she is asked to be seen in my clinic in consultation from Dr. Bang for scheduling of a repeat C- section. There is also the note that there was request that I assumed care of this patient. Considering her presentation her apparent overt preeclampsia I had the patient admitted to labor and delivery for observation and further evaluation. Time of my visit with the patient last evening for admit H&P patient was clinically stable her blood pressure had improved somewhat was in the 130s 140s over the 80 and 90 range. Lab work had been obtained and urine protein creatinine ratio was 0.3. Ultrasound had been performed and showed a fetus AGA with a normal ELOISE. monitor had a category 1 tracing with occasional contractions. Patient's allergies are to latex and tramadol Patient's medications were labetalol 100 mg twice a day and vitamins Medical surgical social history is are per the patient's antepartum record HEENT exam is normal Neck is supple no lymphadenopathy no thyromegaly Abdomen is gravid soft nontender nondistended Extremities show no clubbing cyanosis. There is no Homans' sign. DTRs were 3+/4 globally Pelvic exam was deferred Assessment and plan At the time of admission 36-3/7 weeks gestation with overt preeclampsia. At this point it is not with severe featuresAnd plan at this point is inpatient obs ervation management of blood pressure andBedrest until patient obtains 37 weeks at which time we will proceed with delivery. Should patient demonstrate severe characteristics of preeclampsia or/severe preeclampsia we would proceed with delivery at that point as well. Patient understands her diagnosis her current position in regard to the as well as recommended treatment options and the plan at this point Patient's questions were answered. 36-3/7 weeks gestation on the day of admission with mild preeclampsia likely superimposed on PIH Allergies and Home Medications Allergies Coded Allergies: latex (Verified Allergy, Unknown, 09/27/08) tramadol (Unverified Adverse Reaction, Severe, headache, 09/11/10) Patient Home Medication List Home Medication List Reviewed: Yes Albuterol Sulfate (Proair Hfa) 1 Puff Puff, 2 PUFF IH Q4H, (Reported) Entered as Reported by: HECTOR PURCELL on 06/03/221621 Last Action: New Order Ferrous Sulfate (Ferrous Sulfate) 325 Mg (65 Mg Iron) Tablet, 325 MG PO, (Reported) Entered as Reported by: HECTOR PURCELL on 06/03/221618 Last Action: New Order Labetalol HCl (Labetalol HCl) 100 Mg Tablet, 100 MG PO BID, (Reported) Entered as Reported by: AARON PAUL on 06/02/22 1058 Discontinued Medications Aspirin (Aspirin) 81 Mg Tab.chew, 81 MG PO DAILY Discontinued Reason: No Longer Taking Prescribed by: DARVIN BANG on 04/09/22 1019 Cefdinir (Cefdinir) 300 Mg Capsule, 300 MG PO BID Discontinued Reason: No Longer Taking Prescribed by: DARVIN BANG on 04/09/22 1019 Ferrous Sulfate (Ferrous Sulfate) 325 Mg (65 Mg Iron) Tablet, 325 MG PO DAILY Discontinued Reason: No Longer Taking Prescribed by: DARVIN BANG on 04/09/22 1019 Metronidazole (Metronidazole) 500 Mg Tablet, 500 MG PO BID Discontinued Reason: No Longer Taking Prescribed by: DARVIN BANG on 04/09/22 1019 CHAD BOO MD Jun 04, 2022 14:45
--- NOTE | 2022-06-04 14:49 | Progress Note ---
Standard Progress Note Progress Notes/Assess & Plan Date Seen by a Provider: Jun 04, 2022 Time Seen by a Provider: 07:50 Progress/Assessment & Plan Patient seen and examined. Lab / VS / Sono reviewed Dictation admit H&P pending. June 04, 2022 This is a late entry for patient seen this morning on routine morning on rounds. Patient is now 36-4/7 weeks gestation she has had 2 previous C-sections. She has had multiple losses. She is admitted for observation due to mild preeclampsia. There are no severe features currently although she has had blood pressures that are elevated to superior range prior to presentation to my clinic. At this point we are admitting for observation with continued attention to blood pressures as well as monitoring. We would plan a repeat delivery at 37 weeks unless the patient's preeclampsia progresses to have severe features at which point we would proceed with delivery then. VS - Last 72 Hours, by Label 06/03/22 06/03/22 06/03/22 06/03/22 12:30 13:00 13:50 14:20 Temp 36.7 36.7 Pulse 109 107 88 83 Resp 16 16 16 16 B/P (MAP) 119/89 (99) 138/91 (107) 135/93 (107) Pulse Ox 99 99 O2 Delivery Room Air Room Air 06/03/22 06/03/22 06/03/22 06/04/22 15:50 18:47 22:46 03:00 Temp 36.7 36.3 36.6 Pulse 80 100 80 73 Resp 16 16 16 18 B/P (MAP) 146/91 (109) 135/86 (102) 139/92 (108) 146/75 (98) Pulse Ox 99 98 O2 Delivery Room Air Room Air Room Air 06/04/22 06/04/22 07:40 12:30 Temp 36.6 36.5 Pulse 88 78 Resp 18 18 B/P (MAP) 119/79 (92) 123/77 (92) O2 Delivery Room Air Room Air Physical exam Abdomen is gravid soft nontender nondistended Extremities show no clubbing or cyanosis. There is no Homans' sign. monitor shows a category 1 tracing Pelvic exam is deferred Assessment and plan Hospital day #2 now at 36-4/7 weeks gestation with 2 previous C-sections and with at this point mild preeclampsia but with significantly elevated blood pressures/PIH currently on labetalol with apparent poor control of her blood pressures. We will continue Observation at this pointWith plan as noted above CHAD BOO MD Jun 04, 2022 14:49
[2022-06-04] MEDS ORDERED: hydrOXYzine (VISTARIL/ATARAX) 25 MG capsule/tablet PO NR (15:00)
[2022-06-04] MEDS ORDERED: ONDANSETRON 4 MG (ZOFRAN) ORAL DISSOLVE TAB PO STA (15:34)
[2022-06-04] MEDS ORDERED: FAMOTIDINE 20 MG (PEPCID) TABLET PO ONE (15:45)
[2022-06-04 17:25] VITALS: BP 127/79
[2022-06-04] MEDS ORDERED: FAMOTIDINE 20 MG (PEPCID) TABLET PO PRN (19:00)
[2022-06-04 19:25] VITALS: BP 117/59
[2022-06-04 22:55] VITALS: BP 133/77
[2022-06-05] VITALS (14 sets, daily range): BP systolic 117–164; BP diastolic 57–90
[2022-06-05] MEDS: D5 LR IV SOLUTION 1,000 ML IV SCH ×3 (06:32→23:41)
--- NOTE | 2022-06-05 08:21 | Progress Note ---
Standard Progress Note Progress Notes/Assess & Plan Date Seen by a Provider: Jun 05, 2022 Time Seen by a Provider: 08:12 Progress/Assessment & Plan Patient seen and examined. Lab / VS / Sono reviewed Dictation admit H&P pending. June 04, 2022 This is a late entry for patient seen this morning on routine morning on rounds. Patient is now 36-4/7 weeks gestation she has had 2 previous C-sections. She has had multiple losses. She is admitted for observation due to mild preeclampsia. There are no severe features currently although she has had blood pressures that are elevated to superior range prior to presentation to my clinic. At this point we are admitting for observation with continued attention to blood pressures as well as monitoring. We would plan a repeat delivery at 37 weeks unless the patient's preeclampsia progresses to have severe features at which point we would proceed with delivery then. VS - Last 72 Hours, by Label 06/03/22 06/03/22 06/03/22 06/03/22 12:30 13:00 13:50 14:20 Temp 36.7 36.7 Pulse 109 107 88 83 Resp 16 16 16 16 B/P (MAP) 119/89 (99) 138/91 (107) 135/93 (107) Pulse Ox 99 99 O2 Delivery Room Air Room Air 06/03/22 06/03/22 06/03/22 06/04/22 15:50 18:47 22:46 03:00 Temp 36.7 36.3 36.6 Pulse 80 100 80 73 Resp 16 16 16 18 B/P (MAP) 146/91 (109) 135/86 (102) 139/92 (108) 146/75 (98) Pulse Ox 99 98 O2 Delivery Room Air Room Air Room Air 06/04/22 06/04/22 07:40 12:30 Temp 36.6 36.5 Pulse 88 78 Resp 18 18 B/P (MAP) 119/79 (92) 123/77 (92) O2 Delivery Room Air Room Air Physical exam Abdomen is gravid soft nontender nondistended Extremities show no clubbing or cyanosis. There is no Homans' sign. monitor shows a category 1 tracing Pelvic exam is deferred Assessment and plan Hospital day #2 now at 36-4/7 weeks gestation with 2 previous C-sections and with at this point mild preeclampsia but with significantly elevated blood pressures/PIH currently on labetalol with apparent poor control of her blood pressures. We will continue Observation at this pointWith plan as noted above June 05, 2022 This patient is without complaint. She is ambulatory although she is generally at bedrest to maintain acceptable blood pressures. She denies rupture membranes or bleeding. She reports an occasional contraction. She does feel baby moving. NST is done every shift and has been reactive with category 1 tracing Vital Signs Date Time Temp Pulse Resp B/P (MAP) Pulse Ox O2 Delivery O2 Flow Rate FiO2 06/05/22 04:00 37.1 88 18 122/78 (93) 98 Room Air 06/04/22 22:55 36.3 87 18 133/77 (95) 98 Room Air 06/04/22 19:25 36.4 88 18 117/59 (78) 98 Room Air 06/04/22 17:25 36.6 80 18 127/79 (95) Room Air 06/04/22 12:30 36.5 78 18 123/77 (92) Room Air Vital signs are stable. Patient is afebrile. Blood pressures are normalized while at bedrest The abdomen is benign. Fundus is nontender Extremities show no clubbing or cyanosis. There is no Homans' sign. Pelvic exam is deferred Assessment and plan Hospital day 3 now at 36-5/7 weeks gestation with mild preeclampsia. Plan is for delivery if patient manifests severe features of preeclampsia and/or attainment of 37 weeks gestation CHAD BOO MD Jun 05, 2022 08:21
[2022-06-05] MEDS: LABETALOL 200 MG (NORMODYNE) TAB PO SCH (10:03)
[2022-06-05] MEDS ORDERED: MAGNESIUM 2 GM/50 ML IVPB 0 ML IV ONE (19:11)
[2022-06-05] MEDS ORDERED: fentaNYL INJ 100 MCG/2 ML AMP IVP PRN (19:15)
[2022-06-05] MEDS ORDERED: ceFAZolin INJECTION 2,000 MG in NS (IVPB) 50 ML IV ONE (19:15)
[2022-06-05] MEDS ORDERED: TETANUS,DIPTH,PERTUSS P/F (BOOSTRIX) 0.5 ML VIAL IM ONE (19:15)
[2022-06-05] MEDS ORDERED: MAGNESIUM 2 GM/50 ML IVPB 50 ML IV ONE ×3 (19:15→19:17)
[2022-06-05] MEDS ORDERED: ONDANSETRON 4 MG/2 ML (SDV) Z0FRAN IVP PRN (19:15)
[2022-06-05] MEDS ORDERED: metroNIDAZOLE 500MG/100ML IVPB 100 ML IV ONE (19:15)
[2022-06-05] MEDS ORDERED: hydrALAZINE (APESOLINE) 20 MG/ML VIAL IV ONE (19:15)
[2022-06-05] MEDS ORDERED: D5 LR IV SOLUTION 1,000 ML IV SCH (19:15)
[2022-06-05] MEDS ORDERED: hydrALAZINE (APESOLINE) 20 MG/ML VIAL ONE (19:16)
--- NOTE | 2022-06-05 19:18 | Progress Note ---
Standard Progress Note Progress Notes/Assess & Plan Date Seen by a Provider: Jun 05, 2022 Time Seen by a Provider: 19:15 Progress/Assessment & Plan Patient seen and examined. Lab / VS / Sono reviewed Dictation admit H&P pending. June 04, 2022 This is a late entry for patient seen this morning on routine morning on rounds. Patient is now 36-4/7 weeks gestation she has had 2 previous C-sections. She has had multiple losses. She is admitted for observation due to mild preeclampsia. There are no severe features currently although she has had blood pressures that are elevated to superior range prior to presentation to my clinic. At this point we are admitting for observation with continued attention to blood pressures as well as monitoring. We would plan a repeat delivery at 37 weeks unless the patient's preeclampsia progresses to have severe features at which point we would proceed with delivery then. VS - Last 72 Hours, by Label 06/03/22 06/03/22 06/03/22 06/03/22 12:30 13:00 13:50 14:20 Temp 36.7 36.7 Pulse 109 107 88 83 Resp 16 16 16 16 B/P (MAP) 119/89 (99) 138/91 (107) 135/93 (107) Pulse Ox 99 99 O2 Delivery Room Air Room Air 06/03/22 06/03/22 06/03/22 06/04/22 15:50 18:47 22:46 03:00 Temp 36.7 36.3 36.6 Pulse 80 100 80 73 Resp 16 16 16 18 B/P (MAP) 146/91 (109) 135/86 (102) 139/92 (108) 146/75 (98) Pulse Ox 99 98 O2 Delivery Room Air Room Air Room Air 06/04/22 06/04/22 07:40 12:30 Temp 36.6 36.5 Pulse 88 78 Resp 18 18 B/P (MAP) 119/79 (92) 123/77 (92) O2 Delivery Room Air Room Air Physical exam Abdomen is gravid soft nontender nondistended Extremities show no clubbing or cyanosis. There is no Homans' sign. monitor shows a category 1 tracing Pelvic exam is deferred Assessment and plan Hospital day #2 now at 36-4/7 weeks gestation with 2 previous C-sections and with at this point mild preeclampsia but with significantly elevated blood pressures/PIH currently on labetalol with apparent poor control of her blood pressures. We will continue Observation at this pointWith plan as noted above June 05, 2022 This patient is without complaint. She is ambulatory although she is generally at bedrest to maintain acceptable blood pressures. She denies rupture membranes or bleeding. She reports an occasional contraction. She does feel baby moving. NST is done every shift and has been reactive with category 1 tracing Vital Signs Date Time Temp Pulse Resp B/P (MAP) Pulse Ox O2 Delivery O2 Flow Rate FiO2 06/05/22 04:00 37.1 88 18 122/78 (93) 98 Room Air 06/04/22 22:55 36.3 87 18 133/77 (95) 98 Room Air 06/04/22 19:25 36.4 88 18 117/59 (78) 98 Room Air 06/04/22 17:25 36.6 80 18 127/79 (95) Room Air 06/04/22 12:30 36.5 78 18 123/77 (92) Room Air Vital signs are stable. Patient is afebrile. Blood pressures are normalized while at bedrest The abdomen is benign. Fundus is nontender Extremities show no clubbing or cyanosis. There is no Homans' sign. Pelvic exam is deferred Assessment and plan Hospital day 3 now at 36-5/7 weeks gestation with mild preeclampsia. Plan is for delivery if patient manifests severe features of preeclampsia and/or attainment of 37 weeks gestation June 05, 2022 Patient complains now of headache and diplopia. She complains of some disorientation. She reports that the symptoms are new. Recheck of blood pressure shows systolic in the 160s to 177 over 90s to the low 100 Blood pressure was confirmed manually as well as with the automatic device Patient denies rupture membranes or bleeding. The abdomen is gravid soft nontender nondistended Extremities show no clubbing or cyanosis. There is no Homans' sign. DTRs are brisk at 3+ to 4/4 globally Assessment and plan 36-5/7 weeks gestation with preeclampsia now with severe features including New onset neurologic symptoms in addition to now a persistently elevated blood pressureOver 160 systolic We will start magnesium at 2 g an hour for seizure prophylaxis. Patient will be given 5 mg of a Apresoline to lower the pressure now We will proceed now with repeat delivery CHAD BOO MD Jun 05, 2022 19:17
[2022-06-05] MEDS ORDERED: MAGNESIUM SULFATE DRIP 500 ML IV ONE (19:43)
[2022-06-05] MEDS ORDERED: CALCIUM GLUC. 10% 4.65 MEQ/10 ML VIAL ONE (19:43)
[2022-06-05] MEDS ORDERED: CALC GLUC 1 GM/100 ML IVPB 100 ML IV ONE (20:00)
[2022-06-05 20:55] LABS: AMPHETAMINE SCREEN, URINE NEGATIVE (NEGATIVE); BARBITURATE SCREEN URINE NEGATIVE (NEGATIVE); BENZODIAZEPINES SCREEN URINE NEGATIVE (NEGATIVE); CANNABINOID SCREEN, URINE NEGATIVE (NEGATIVE); COCAINE SCREEN URINE NEGATIVE (NEGATIVE); METHADONE STAT NEGATIVE (NEGATIVE); OPIATE SCREEN URINE NEGATIVE (NEGATIVE); OXYCODONE STAT NEGATIVE (NEGATIVE); PROPOXYPHENE STAT NEGATIVE (NEGATIVE); TRICYCLIC ANTIDEPRESSANTS SCRE NEGATIVE (NEGATIVE)
[2022-06-05] MEDS ORDERED: DOCUSATE SODIUM 100 MG (COLACE) CAP PO SCH ×2 (21:00)
[2022-06-05] MEDS ORDERED: KETOROLAC 30 MG/ML VIAL IVP SCH (22:00)
[2022-06-06] VITALS (22 sets, daily range): BP systolic 107–153; BP diastolic 59–90
[2022-06-06] MEDS: LABETALOL 200 MG (NORMODYNE) TAB PO SCH (02:47)
[2022-06-06] MEDS: OXYTOCIN PRE-MIX DRIP 500 ML IV SCH ×2 (04:25→04:28)
[2022-06-06] MEDS ORDERED: ceFAZolin INJECTION 2,000 MG in NS (IVPB) 50 ML IV ONE (05:00)
[2022-06-06] MEDS ORDERED: LACTATED RINGERS 1,000 ML IV PRN ×2 (05:00)
[2022-06-06] MEDS ORDERED: metroNIDAZOLE 500MG/100ML IVPB 100 ML IV ONE (05:00)
[2022-06-06] MEDS ORDERED: METOCLOPRAMIDE INJ 10 MG/2 ML (REGLAN) IV ONE (05:00)
[2022-06-06] MEDS ORDERED: FAMOTIDINE 20MG/2ML IV (PEPCID) IV ONE (05:00)
[2022-06-06] MEDS ORDERED: CITRIC ACID/SOB CIT (BICITRA) 30 ML UDC PO ONE (05:00)
[2022-06-06 05:41] LABS: BASOPHILS # (AUTO) 0.1 10^3/uL (0.0-0.1); BASOPHILS % (AUTO) 1 % (0-10); EOSINOPHILS # (AUTO) 0.5 10^3/uL (0.0-0.3); EOSINOPHILS % (AUTO) 5 % (0-10); HEMATOCRIT 31 % (35-52); HEMOGLOBIN 9.5 g/dL (11.5-16.0); LYMPHOCYTES # (AUTO) 1.3 10^3/uL (1.0-4.0); LYMPHOCYTES % (AUTO) 14 % (12-44); MEAN CORPUSCULAR HEMOGLOBIN 22 pg (25-34); MEAN CORPUSCULAR HGB CONC 31 g/dL (32-36); MEAN CORPUSCULAR VOLUME 71 fL (80-99); MONOCYTES # (AUTO) 0.6 10^3/uL (0.0-1.0); MONOCYTES % (AUTO) 7 % (0-12); NEUTROPHILS # (AUTO) 6.6 10^3/uL (1.8-7.8); NEUTROPHILS % (AUTO) 73 % (42-75); PLATELET COUNT 318 10^3/uL (130-400); WHITE BLOOD COUNT 9.1 10^3/uL (4.3-11.0)
[2022-06-06 05:58] LABS: ALBUMIN 2.8 GM/DL (3.2-4.5); POTASSIUM 3.9 MMOL/L (3.6-5.0)
[2022-06-06 05:59] LABS: CALCIUM 7.4 MG/DL (8.5-10.1)
[2022-06-06 06:02] LABS: BILIRUBIN,TOTAL 0.2 MG/DL (0.1-1.0)
[2022-06-06 06:04] LABS: CREATININE SERUM 0.63 MG/DL (0.60-1.30)
[2022-06-06] MEDS ORDERED: CALCIUM GLUC. 10% 4.65 MEQ/10 ML VIAL IV SCH (06:15)
[2022-06-06] MEDS ORDERED: MAGNESIUM SULFATE DRIP 500 ML IV SCH (06:45)
[2022-06-06] MEDS ORDERED: OXYTOCIN PRE-MIX DRIP 1,000 ML IV ONE (07:03)
[2022-06-06] MEDS ORDERED: fentaNYL INJ 100 MCG/2 ML AMP ONE (07:03)
[2022-06-06] MEDS ORDERED: PHENYLEPHRINE 100 MCG/ML 10 ML (ANESTHESIA) SYR ONE (07:42)
[2022-06-06] MEDS ORDERED: BUPIVACAINE 0.5% 30 ML (SENSORCAINE) VIAL ONE (07:42)
[2022-06-06] MEDS ORDERED: oxyCODONE/APAP 10/325MG (PERCOCET 10) TABLET PO PRN (09:30)
[2022-06-06] MEDS ORDERED: OXYTOCIN PRE-MIX DRIP 500 ML IV SCH (09:30)
[2022-06-06] MEDS ORDERED: TETANUS,DIPTH,PERTUSS P/F (BOOSTRIX) 0.5 ML VIAL IM ONE (09:30)
[2022-06-06] MEDS ORDERED: fentaNYL INJ 100 MCG/2 ML AMP IVP PRN (09:30)
[2022-06-06] MEDS ORDERED: ONDANSETRON 4 MG/2 ML (SDV) Z0FRAN IVP PRN (09:30)
[2022-06-06] MEDS ORDERED: D5 LR IV SOLUTION 1,000 ML IV SCH (09:30)
[2022-06-06] MEDS: KETOROLAC 30 MG/ML VIAL IVP SCH ×2 (10:24→15:29)
[2022-06-06] MEDS ORDERED: IBUPROFEN 800 MG (MOTRIN) TAB PO SCH (12:00)
[2022-06-06] MEDS: oxyCODONE/APAP 10/325MG (PERCOCET 10) TABLET PO PRN ×2 (13:27→14:30)
--- NOTE | 2022-06-06 14:18 | OPERATIVE REPORT ---
DATE OF SERVICE: 06/06/2022 PREOPERATIVE DIAGNOSES: A 36 and 6/7 weeks' gestation with severe preeclampsia and 6 previous C-sections. POSTOPERATIVE DIAGNOSES: A 36 and 6/7 weeks' gestation with severe preeclampsia and 6 previous C-sections. OPERATIVE PROCEDURE: Repeat low transverse delivery of a viable male with Apgars of 8 and 9 at 1 and 5 minutes respectively, weight of 5 pounds 11 ounces, cord blood pH is pending and a time of 07:29. OPERATIVE DESCRIPTION: With the patient in the supine position under satisfactory spinal analgesia, she was prepped and draped in the usual fashion for abdominal surgery. Uribe catheter was placed in the urinary bladder. A Pfannenstiel incision made through the skin with the scalpel at the site of the patient's lowest Pfannenstiel incisional scar, which she had several different levels of her abdomen. The abdomen was entered in the usual manner. There was really barely any recognizable abdominal wall musculature. The fascia was cross with all intents and purposes to the peritoneum. The peritoneum was opened. Bladder retractor placed into position and clean scalpel used to make a 4 cm hysterotomy incision transversely across the lower uterine segment that was extended bluntly. Clear fluid was released on hysterotomy. Castellanos forceps were applied to facilitate the delivery of a vigorous viable male infant with Apgars and stats as noted above. There was a nuchal cord that was easily released. The was bulb suctioned on delivery of the head and again on completion of delivery. Umbilical cord was doubly clamped and cut, and the infant passed to the pediatric nurse in attendance for delivery. Cord bloods were obtained. The placenta delivered promptly spontaneously Howard. It was normal with 3-vessel cord. The uterus was exteriorized and interior wiped clean with a wet laparotomy sponge. Uterine incision then closed with a running locked suture of 2-0 Vicryl. Hemostasis was complete. The uterus was returned to abdominal cavity. All blood clot and debris removed from the abdominal cavity. The anterior parietal peritoneum and transversalis fascia was closed in a single layer with a 2-0 Vicryl suture. There were no recognizable rectus muscles present. The rectus fascia was now closed with a running locked suture of 2-0 Vicryl in the usual manner. Subcutaneous tissue was closed with 2-0 Vicryl and the skin was stapled. Sponge and needle counts were correct on completion of the procedure. Blood loss was around 500 mL. The patient tolerated the procedure well and remained in the OR pending transfer to the recovery room. The baby remained with the mom. Job ID: [id number] DocumentID: [id number] Dictated Date: 06/06/2022 07:53:43 Ro[place]er [place] Date: 06/06/2022 14:17:44 Dictated By: CHAD BOO MD
[2022-06-06] MEDS ORDERED: CATHETER FLUSH 10 ML SYR IV PRN (19:00)
[2022-06-06] MEDS ORDERED: DOCUSATE SODIUM 100 MG (COLACE) CAP PO SCH ×2 (21:00)
--- NOTE | 2022-06-07 12:19 | Anesthesia-Regional Post-Op ---
Regional Patient Condition Mental Status: Alert, Oriented x3 Circulation: Same as Pre-Op Headache: Absent Sensation: Full Recovery Motor Block: Absent Post Op Complications Complications None Follow Up Care/Instructions Patient Instructions None needed. Anesthesia/Patient Condition Patient is doing well, no complaints, stable vital signs, no apparent adverse anesthesia problems. No complications reported per nursing. EMILY BALDERRAMA CRNA Jun 07, 2022 12:19
[2022-06-10] MEDS ORDERED: IBUPROFEN 800 MG (MOTRIN) TAB PO SCH (22:00)
== END 2022-06-06 16:30 | disposition home or self-care (01) | DRG 788 ==
LOC: LDRP 12:10 → OBSVTOIN 19:14
PROVIDERS: ADMIT Obstetrics & Gynecology; ATTEND Obstetrics & Gynecology
PROC: 10D00Z1 Extraction of Products of Conception, Low, Open Approach (ICD-10-PCS; principal; 2022-06-06 07:23)
DX: O14.14 Severe pre-eclampsia complicating childbirth (principal); O34.211 Maternal care for low transverse scar from previous cesarean delivery; Z37.0 Single live birth; Z3A.36 36 weeks gestation of pregnancy; Z91.040 Latex allergy status; Z88.5 Allergy status to narcotic agent
CPT/HCPCS: 36415; 76805; 76819; 80053; 80306; 81000; 82570; 83615; 84156; 84550; 85025; 86850; 86900; 86901; 87081; 87088; 94664; G0378

== ENCOUNTER 2022-06-07 06:20 | Emergency (ER) | payer MEDICAID ==
[~2022-06-07 06:20] MED LIST changes: +RT-ALBUINH IH
[2022-06-07] MEDS ORDERED: LABETALOL 200 MG (NORMODYNE) TAB PO STA (06:42)
[2022-06-07] MEDS ORDERED: fentaNYL INJ 100 MCG/2 ML AMP IM ONE (06:45)
[2022-06-07] MEDS ORDERED: oxyCODONE/APAP 5/325MG (PERCOCET 5) TABLET PO ONE (06:45)
[2022-06-07] MEDS ORDERED: LABETALOL 200 MG (NORMODYNE) TAB PO ONE (06:54)
--- NOTE | 2022-06-07 07:56 | ED Abdominal Pain ---
General Chief Complaint: (<6 weeks) Stated Complaint: ABDOMINAL PAIN Nursing Triage Note: TO ED VIA POV AND AMBULATORY TO FT3 WITH C/O POST C SECTION PAIN. PT HAD C SECTION YESTERDAY MORNING AND WAS RELEASED YESTERDAY AFTER BABY SENT TO NICU IN [place], [place]. PT DID NOT FOOD AND BEVERAGE CHECKER RX PAIN MEDICATION. LAST IBUPROFEN 1.5H HOSE TESTER. VOIDING, PASSING FLATUS, AND BM LAST NIGHT. ABD DRSG REMOVED WITH DR. POLLARD AT BEDSIDE. MIKEL INTACT WITH MINIMAL RED DRAINAGE NOTED. RE-DRESSED WITH TELFA, ABD, AND TAPE. Source of Information: Patient, Old Records Exam Limitations: No Limitations History of Present Illness Date Seen by Provider: Jun 07, 2022 Time Seen by Provider: 06:30 Initial Comments This 36-year-old woman presents to the emergency room with uncontrolled pain after having a section performed by Dr. SANTANA yesterday. She had a slightly premature delivery at 36 weeks and 6 days gestational age because of preeclampsia. Baby was transferred to the NICU at [place]. Mom had some traumatic loss of bonding opportunity with prior children, so she was discharged early yesterday to be with her baby at the NICU. As a result, she was not able to cotton picker her Percocet before the pharmacy closed. She has been taking ibuprofen 800 mg every 4-6 hours with her last dose being within 2 hours of arriving to the ER. She does not believe her pain is beyond normal expectations for a section. She believes her pain is just not controlled because she has not been able to obtain the prescription, and she could not tolerate the pain at home. She believes pain was initially well controlled because of Marcaine injections at the time of surgery. She also has hypertension which is being treated with labetalol. She has not yet had her labetalol dose today. She is urinating normally. She is passing flatus. She denies nausea or vomiting. She is afebrile. Allergies and Home Medications Allergies Coded Allergies: latex (Verified Allergy, Unknown, 09/27/08) tramadol (Unverified Adverse Reaction, Severe, headache, 09/11/10) Patient Home Medication List Home Medication List Reviewed: Yes Albuterol Sulfate (Proair Hfa) 1 Puff Puff, 2 PUFF IH Q4H, (Reported) Entered as Reported by: HECTOR PURCELL on 06/03/22 1622 Ferrous Sulfate (Ferrous Sulfate) 325 Mg (65 Mg Iron) Tablet, 325 MG PO, ( Reported) Entered as Reported by: HECTOR PURCELL on 06/03/22 1619 Labetalol HCl (Labetalol HCl) 100 Mg Tablet, 100 MG PO BID, (Reported) Entered as Reported by: AARON PAUL on 06/02/22 1058 Discontinued Medications Aspirin (Aspirin) 81 Mg Tab.chew, 81 MG PO DAILY Discontinued Reason: No Longer Taking Prescribed by: DARVIN BANG on 04/09/22 1019 Cefdinir (Cefdinir) 300 Mg Capsule, 300 MG PO BID Discontinued Reason: No Longer Taking Prescribed by: DARVIN BANG on 04/09/22 1019 Ferrous Sulfate (Ferrous Sulfate) 325 Mg (65 Mg Iron) Tablet, 325 MG PO DAILY Discontinued Reason: No Longer Taking Prescribed by: DARVIN BANG on 04/09/22 101 Metronidazole (Metronidazole) 500 Mg Tablet, 500 MG PO BID Discontinued Reason: No Longer Taking Prescribed by: DARVIN BANG on 04/09/22 1019 Review of Systems Review of Systems Constitutional: no symptoms reported EENTM: No Symptoms Reported Respiratory: No Symptoms Reported Cardiovascular: No Symptoms Reported Gastrointestinal: See HPI Genitourinary: See HPI Musculoskeletal: no symptoms reported Skin: see HPI Psychiatric/Neurological: No Symptoms Reported Endocrine: No Symptoms Reported Hematologic/Lymphatic: No Symptoms Reported Past Ecvqbwa-Ogofht-Vdjtlj Hx Patient Social History Tobacco Use?: Yes Smoking Status: Current Everyday Smoker Additional substance use comme: STATES PAST HX Alcohol Use?: No Immunizations Up To Date Tetanus Booster (TDap): Less than 5yrs Seasonal Allergies Seasonal Allergies: No Past Medical History Surgery/Hospitalization HX: C-Sections x 6, kidney surgery x4,knee x 2, carpal tunnel release Surgeries: Yes (6 c-sec, carpal tunnel, l knee surg, benign turmor on feet, uretural reflex) Bladder Surgery, Section, Orthopedic Respiratory: Yes Asthma Cardiac: Yes Hypertension Neurological: No Reproductive Disorders: No Female Reproductive Disorders: Denies Sexually Transmitted Disease: Yes (age 12 Chlamydia) HIV/AIDS: No Genitourinary: Yes Kidney Infection, Bladder Infection, UTI-Chronic Gastrointestinal: No Musculoskeletal: Yes Back Injury, Chronic Back Pain Endocrine: No HEENT: No Hearing Impairment: Denies Cancer: No Psychosocial: No Integumentary: No Blood Disorders: No Adverse Reaction/Blood Tranf: No Family Medical History Hypertension 19 MOTHER No Pertinent Family Hx Physical Exam Vital Signs Vital Signs - First Documented 06/07/22 06:31 Temp 35.8 Pulse 78 Resp 16 B/P (MAP) 147/86 (106) Pulse Ox 99 O2 Delivery Room Air Capillary Refill : Less Than 3 Seconds Height/Weight/BMI Height: 5'2.00" Weight: 146lbs. 4.0oz. [id number]; 35.15 BMI Method:Stated General Appearance: WD/WN, mild distress HEENT: normal ENT inspection Neck: normal inspection Respiratory: lungs clear, normal breath sounds, no respiratory distress Cardiovascular: regular rate, rhythm, no edema, no murmur Gastrointestinal: normal bowel sounds, soft; No distended; tenderness (Mild to moderate, as expected for postoperative day #1), other (Incision is clean, dry, and intact with mikel. There is no erythema or purulent drainage. There is a slight oozing of blood on the right side upon removing dressing.) Extremities: normal inspection, no pedal edema Neurologic/Psychiatric: no motor/sensory deficits, alert, normal mood/affect, oriented x 3 Skin: normal color, warm/dry, other (As above) Progress/Results/Core Measures Results/Orders My Orders Orders - JOÃO POLLARD MD Fentanyl Inj (Sublimaze Injection) (06/07/22 06:45) Oxycodone/Apap 5/325mg Tablet (Percocet (06/07/22 06:45) Labetalol Tablet (Normodyne Tablet) (06/07/22 06:42) Labetalol Tablet (Normodyne Tablet) (06/07/22 06:54) Medications Given in ED Current Medications Medications Dose Ordered Sig/Hever Route Start Time Stop Time Status Last Admin Dose Admin Fentanyl Citrate 100 mcg ONCE ONCE IM 06/07/22 06:45 06/07/22 06:46 DC 06/07/22 06:59 100 MCG Oxycodone/ Acetaminophen 1 tab ONCE ONCE PO 06/07/22 06:45 06/07/22 06:46 DC 06/07/22 06:56 1 TAB Vital Signs/I&O 06/07/22 06/07/22 06/07/22 06:31 06:45 08:05 Temp 35.8 35.8 Pulse 78 84 Resp 16 16 B/P (MAP) 147/86 (106) 147/86 144/85 Pulse Ox 99 99 O2 Delivery Room Air Room Air Blood Pressure Mean: 106 Progress Progress Note : Progress Note Pain was successfully treated with fentanyl 100 mcg IM and Percocet 5 mg. We ensured pain was controlled before discharging. Patient was satisfied with her care. She also received her morning dose of labetalol for hypertension. Blood pressure was stable upon discharge. Dr. SANTANA was updated. Departure Impression Primary Impression: Postoperative pain Additional Impression: hypertension Disposition: HOME, SELF-CARE Condition: Improved Departure-Patient Inst. Decision time for Depature: 07:53 Referrals: CONRAD BRASHER MD (PCP/Family) Primary Care Physician Patient Instructions: SECTION DISCHARGE, Postoperative Pain (DC) Add. Discharge Instructions: You may take ibuprofen and up to 600 mg every 6 hours or 800 mg every 8 hours. Do not exceed an average of 100 mg per hour throughout the day. Use your prescribed pain medication as directed. You may add Tylenol (acetaminophen) if needed for additional pain relief as long as you do not exceed 1000 mg of Tylenol (acetaminophen) every 6 hours. Percocet and hydrocodone contain acetaminophen, so monitor your total dosing. Drink plenty of clear liquids. You may wish to take a stool softener such as Colace to prevent constipation while taking opioid pain medications. Follow your postoperative instructions as provided by Dr. Santana. Call Dr. SANTANA with questions or concerns. Return to the ER if you have worsening symptoms despite following these instructions or if you develop new symptoms such as fever, persistent bleeding or oozing from the incision, escalating pain, vomiting, etc. All discharge instructions reviewed with patient and/or family. Voiced understanding. Copy Copies To 1: CHAD SANTANA MD Copies To 2: CONRAD BRASHER MD, JOSHUA T MD Jun 07, 2022 07:56
[2022-06-07 08:05] VITALS: BP 144/85
== END 2022-06-07 08:05 | disposition home or self-care (01) ==
LOC: EDUNIT# 06:20 → ER 06:22
DX: O10.93 Unspecified pre-existing hypertension complicating the puerperium (principal); G89.18 Other acute postprocedural pain; O99.335 Smoking (tobacco) complicating the puerperium; F17.200 Nicotine dependence, unspecified, uncomplicated; Z79.899 Other long term (current) drug therapy; Z28.310 Unvaccinated for COVID-19
CPT/HCPCS: 99284

== ENCOUNTER 2022-07-19 20:10 | Emergency (ER) | payer MEDICAID ==
[~2022-07-19] VITALS: Ht 160 cm; Wt 84.0 kg
[2022-07-19 20:19] VITALS: BP 156/93
--- NOTE | 2022-07-19 20:35 | ED Lower Extremity ---
General Chief Complaint: Lower Extremity Stated Complaint: LEFT FOOT INJURY Nursing Triage Note: Pt here with left foot pain after dropping a 20lb bag of ice on her foot less than an hour ago. Source: patient History of Present Illness Date Seen by Provider: Jul 19, 2022 Time Seen by Provider: 20:33 Initial Comments Patient presents for left foot injury. She reportedly was carrying a 20 pound bag of ice and stepped forward and pivoted and felt a sharp pain in her left foot. She has had pain in it since then. She has no radiographic this before. Onset: just prior to arrival Method of Injury: direct blow Allergies and Home Medications Allergies Coded Allergies: latex (Verified Allergy, Unknown, 09/27/08) tramadol (Unverified Adverse Reaction, Severe, headache, 09/11/10) Patient Home Medication List Home Medication List Reviewed: Yes Albuterol Sulfate (Proair Hfa) 1 Puff Puff, 2 PUFF IH Q4H, (Reported) Entered as Reported by: HECTOR PURCELL on 06/03/22 1622 Ferrous Sulfate (Ferrous Sulfate) 325 Mg (65 Mg Iron) Tablet, 325 MG PO, (Reported) Entered as Reported by: HECTOR PURCELL on 06/03/22 1619 Labetalol HCl (Labetalol HCl) 100 Mg Tablet, 100 MG PO BID, (Reported) Entered as Reported by: AARON PAUL on 06/02/22 1058 Review of Systems Constitutional: no symptoms reported EENTM: no symptoms reported Respiratory: no symptoms reported Gastrointestinal: no symptoms reported Musculoskeletal: see HPI Past Vjkjsff-Bnhggy-Rrzbzr Hx Patient Social History Tobacco Use?: Yes Immunizations Up To Date Tetanus Booster (TDap): Less than 5yrs Seasonal Allergies Seasonal Allergies: No Past Medical History Surgery/Hospitalization HX: C-Sections x 6, kidney surgery x4,knee x 2, carpal tunnel release Surgeries: Yes (6 c-sec, carpal tunnel, l knee surg, benign turmor on feet, uretural reflex) Bladder Surgery, Section, Orthopedic Respiratory: Yes Asthma Cardiac: Yes Hypertension Neurological: No Reproductive Disorders: No Female Reproductive Disorders: Denies Sexually Transmitted Disease: Yes (age 12 Chlamydia) HIV/AIDS: No Genitourinary: Yes Kidney Infection, Bladder Infection, UTI-Chronic Gastrointestinal: No Musculoskeletal: Yes Back Injury, Chronic Back Pain Endocrine: No HEENT: No Hearing Impairment: Denies Cancer: No Psychosocial: No Integumentary: No Blood Disorders: No Adverse Reaction/Blood Tranf: No Family Medical History Hypertension 19 MOTHER No Pertinent Family Hx Physical Exam Vital Signs Vital Signs - First Documented 07/19/22 20:19 Temp 36.6 Pulse 86 Resp 18 B/P (MAP) 156/93 (114) Pulse Ox 100 O2 Delivery Room Air Capillary Refill : Height, Weight, BMI Height: 5'2.00" Weight: 146lbs. 4.0oz. 66.645582ci; 32.00 BMI Method:Stated General Appearance: WD/WN, no apparent distress HEENT: PERRL/EOMI Neck: non-tender Cardiovascular: regular rate, rhythm Respiratory: chest non-tender Feet: left foot pain Neurologic/Psychiatric: lamp developer II-XII nml as tested, oriented x 3 Skin: normal color, warm/dry Progress/Results/Core Measures Results/Orders My Orders Orders - GAGE EDDY Foot, Left, 3 Views (07/19/22 20:31) Vital Signs/I&O 07/19/22 20:19 Temp 36.6 Pulse 86 Resp 18 B/P (MAP) 156/93 (114) Pulse Ox 100 O2 Delivery Room Air Blood Pressure Mean: 114 Departure Communication (Admissions) Patient has a questionable Lisfranc fracture/dislocation on imaging. We will place her in a walking boot and crutches so that she is nonweightbearing and she will follow-up with the orthopedist. Impression Primary Impression: Lisfranc fracture Disposition: HOME, SELF-CARE Condition: Stable Departure-Patient Inst. Decision time for Depature: 21:23 Referrals: CONRAD BRASHER MD (PCP/Family) Primary Care Physician PAULA HOLLOWAY MD Patient Instructions: Foot Fracture ED Add. Discharge Instructions: Please call the orthopedic office on Thursday to schedule close follow-up. You should not bear any weight on your foot until you are cleared by them. You can use [id number] ibuprofen and Tylenol for symptomatic relief. You do not have to wear the boot when you are at home resting with your foot elevated. All discharge instructions reviewed with patient and/or family. Voiced understanding. GAGE EDDY Jul 19, 2022 20:35
--- NOTE | 2022-07-19 20:51 | Diagnostic Imaging Report ---
INDICATION: Left foot pain after dropping a 20 pound bag of ice on foot one hour ago. TECHNIQUE: 3 views of the left foot. CORRELATION STUDY: None. FINDINGS: Findings do suggest a very small fracture fragment interposed between the base of the 1st and 2nd metatarsal. Remaining osseous structures otherwise intact. Mild soft tissue edema along the dorsal aspect of foot. IMPRESSION: Findings do suggest a small fracture interposed between the base of the 1st and 2nd metatarsal. This would be in the region of the Lisfranc joint. Correlation for patients symptoms to site of pain. Dictated by: Dictated on workstation # [id number]
== END 2022-07-19 21:27 | disposition home or self-care (01) ==
LOC: EDUNIT# 20:10 → ER 20:13
DX: S93.322A Subluxation of tarsometatarsal joint of left foot, initial encounter (principal); Z72.0 Tobacco use; Z91.040 Latex allergy status; W20.8XXA Other cause of strike by thrown, projected or falling object, initial encounter
CPT/HCPCS: 73630; 99282; L2114

== ENCOUNTER 2022-07-22 15:15 | Emergency (ER) | payer MEDICAID ==
[2022-07-22] MEDS ORDERED: ACHD5005 PO (16:00)
--- NOTE | 2022-07-22 16:01 | ED EENT ---
History of Present Illness General Chief Complaint: Dental Problems/Pain Stated Complaint: MOUTH PAIN Nursing Triage Note: PT AMB TO FT 2 WITH C/O L TOOTH INFECTION FROM A BROKEN TOOTH THAT IS CAUSING SEVERE PAIN AND A THROBBING FREDERICK. PT STATES SHE HAS A DENTAL APPOINTMENT IN AUGUST Source: patient Exam Limitations: no limitations History of Present Illness Date Seen by Provider: Jul 22, 2022 Time Seen by Provider: 15:46 Initial Comments This is a well appearing 36 yo female who presented to the ER via POV with c/o dental infection and broken tooth. States she had been having left jaw pain, but it is worse since her tooth broke today. States she was evaluated at [facility] walk-in and was prescribed amoxicillin and referred to [facility] dental clinic. States she has attempted to call in everyday for "same day" appointment but has been unable. She is scheduled for August 07 but does not feel she can tolerate pain this long. Is continuing her antibiotics, has taken Ibuprofen and Tylenol with no relief of symptoms. States her BF is planning on paying for her to have "same day" appointment in [place] when he gets pain next week if she is unable to get into [facility]. States she just had baby 1 month ago. Denies breast feeding. Allergies and Home Medications Allergies Coded Allergies: latex (Verified Allergy, Unknown, 09/27/08) tramadol (Unverified Adverse Reaction, Severe, headache, 09/11/10) Patient Home Medication List Home Medication List Reviewed: Yes Albuterol Sulfate (Proair Hfa) 1 Puff Puff, 2 PUFF IH Q4H, (Reported) Entered as Reported by: HECTOR PURCELL on 06/03/22 1622 Ferrous Sulfate (Ferrous Sulfate) 325 Mg (65 Mg Iron) Tablet, 325 MG PO, (Reported) Entered as Reported by: HECTOR PURCELL on 06/03/22 1619 Hydrocodone/Acetaminophen (Hydrocodone-Acetamin 5-325 mg) 5 Mg-325 Mg Tablet, 1 TAB PO Q6H PRN for PAIN-MODERATE (5-7) Prescribed by: LINDSEY CRAMER on 07/22/22 1601 Labetalol HCl (Labetalol HCl) 100 Mg Tablet, 100 MG PO BID, (Reported) Entered as Reported by: AARON PAUL on 06/02/22 1058 Review of Systems Review of Systems Constitutional: No chills, No fever Eyes: No Symptoms Reported Ears: No Symptoms Reported Mouth: see HPI, loose teeth, pain Throat: no symptoms reported Respiratory: no symptoms reported Cardiovascular: no symptoms reported Gastrointestinal: nausea Musculoskeletal: no symptoms reported Skin: no symptoms reported Neurological: No Symptoms Reported Hematologic/Lymphatic: See HPI Immunological/Allergic: no symptoms reported Past Yjtvycm-Bzjxkn-Ouzosd Hx Patient Social History Tobacco Use?: Yes Tobacco type used: Cigarettes Smoking Status: Current Everyday Smoker Substance use?: No Alcohol Use?: No Pt feels they are or have been: No Immunizations Up To Date Tetanus Booster (TDap): Less than 5yrs Influenza Vaccine Up-to-Date: No; Not Current Seasonal Allergies Seasonal Allergies: No Past Medical History Surgery/Hospitalization HX: C-Sections x 7, kidney surgery x4,knee x 2, carpal tunnel release, foot surgery HTN Surgeries: Yes (6 c-sec, carpal tunnel, l knee surg, benign turmor on feet, uretural reflex) Bladder Surgery, Section, Orthopedic Respiratory: Yes Asthma Cardiac: Yes Hypertension Neurological: No Last Menstrual Period: Jul 22, 2022 Reproductive Disorders: No Female Reproductive Disorders: Denies Sexually Transmitted Disease: Yes (age 12 Chlamydia) HIV/AIDS: No Genitourinary: Yes Kidney Infection, Bladder Infection, UTI-Chronic Gastrointestinal: No Musculoskeletal: Yes Back Injury, Chronic Back Pain Endocrine: No HEENT: No Hearing Impairment: Denies Cancer: No Psychosocial: No Integumentary: No Blood Disorders: No Adverse Reaction/Blood Tranf: No Family Medical History Hypertension 19 MOTHER No Pertinent Family Hx Physical Exam Vital Signs Vital Signs - First Documented 07/22/22 15:25 Temp 36.7 Pulse 78 Resp 18 B/P (MAP) 146/94 (111) Height, Weight, BMI Height: 5'2.00" Weight: 146lbs. 4.0oz. 66.606549nc; 32.00 BMI Method:Stated General Appearance: WD/WN, no apparent distress Eyes: bilateral eye normal inspection, bilateral eye PERRL, bilateral eye EOMI Nose: normal inspection; No discharge Mouth/Throat: pharynx normal, dental tenderness (teeth 18, 19, no gingival swelling. ); No mandibular swelling, No maxillary swelling Neck: full range of motion, supple, normal inspection Cardiovascular: normal peripheral pulses, regular rate, rhythm, no murmur Respiratory: lungs clear, normal breath sounds, no respiratory distress Gastrointestinal: normal bowel sounds, non tender, soft Neurologic/Psychiatric: alert, normal mood/affect, oriented x 3 Skin: normal color, warm/dry Progress/Results/Core Measures Results/Orders Vital Signs/I&O Blood Pressure Mean: 111 Progress Progress Note : Progress Note States she came to ER in hopes we would be able to call dental office to get her a quicker appointment. Discussed that the [facility] works by first call, first serve and the ER has no influence on obtaining quicker appointment. Will help manage pain, instructed to continue to call every morning as previously directed by dental office. Departure Impression Primary Impression: Fracture, tooth Disposition: HOME, SELF-CARE Condition: Improved Departure-Patient Inst. Decision time for Depature: 15:57 Referrals: CONRAD BRASHER MD (PCP/Family) Primary Care Physician Patient Instructions: Dental Pain Add. Discharge Instructions: Plan: 1. May use clove oil every 3 hours for pain. 2. May take Venita-tab every 6 hours as needed for severe pain. Finish prescribed antibiotics. 3. Continue to call [facility] for dental appointment. You can try [place] office at [phone]. 4. Return to ER for any new, concerning, or worsening symptoms. All discharge instructions reviewed with patient and/or family. Voiced understanding. Scripts Hydrocodone/Acetaminophen (Hydrocodone-Acetamin 5-325 mg) 5 Mg-325 Mg Tablet 1 TAB PO Q6H PRN for PAIN-MODERATE (5-7), #14 TAB 0 Refills Prov: LINDSEY CRAMER SCRAP CRUSHER 07/22/22 LINDSEY CRAMER SCRAP CRUSHER Jul 22, 2022 16:01
[2022-07-22 16:05] VITALS: BP 146/94
== END 2022-07-22 16:06 | disposition home or self-care (01) ==
LOC: EDUNIT# 15:15 → ER 15:17
DX: S02.5XXA Fracture of tooth (traumatic), initial encounter for closed fracture (principal); F17.210 Nicotine dependence, cigarettes, uncomplicated; Z88.6 Allergy status to analgesic agent; Z91.040 Latex allergy status; X58.XXXA Exposure to other specified factors, initial encounter
CPT/HCPCS: 99282

== ENCOUNTER 2022-07-24 05:33 | Outpatient (CLI) | payer MEDICAID ==
[~2022-07-24] VITALS: Ht 160 cm; Wt 86.2 kg
== END 2022-07-29 13:03 | disposition home or self-care (01) ==
LOC: PREOP 05:33
PROVIDERS: ATTEND Obstetrics & Gynecology
DX: Z01.818 Encounter for other preprocedural examination (principal); N92.0 Excessive and frequent menstruation with regular cycle; N80.9 Endometriosis, unspecified

== ENCOUNTER → 2022-07-24 | Outpatient (CLI) | payer MEDICAID | LOC: ORTHO 13:49 | PROVIDERS: ATTEND Orthopaedic Surgery | DX: S92.302A Fracture of unspecified metatarsal bone(s), left foot, initial encounter for closed fracture (principal); X58.XXXA Exposure to other specified factors, initial encounter | CPT/HCPCS: 99203 ==

== ENCOUNTER 2022-08-01 06:57 | Day surgery (SDC) | payer MEDICAID ==
[2022-08-01] VITALS (17 sets, daily range): BP systolic 111–189; BP diastolic 53–103
[~2022-08-01] VITALS: Ht 160 cm; Wt 86.2 kg
[~2022-08-01 06:57] MED LIST changes: -LABE100T6 PO; +LABE100T9 PO; +LABE200T10 PO; -LABE200T7 PO
[2022-08-01] MEDS ORDERED: BUP/EPI 0.5% 1:200,000 (MARCAINE) 10ML VIAL IJ ONE (07:19)
[2022-08-01 07:37] LABS: BASOPHILS # (AUTO) 0.1 10^3/uL (0.0-0.1); BASOPHILS % (AUTO) 2 % (0-10); EOSINOPHILS # (AUTO) 0.8 10^3/uL (0.0-0.3); EOSINOPHILS % (AUTO) 16 % (0-10); HEMATOCRIT 31 % (35-52); HEMOGLOBIN 9.9 g/dL (11.5-16.0); LYMPHOCYTES # (AUTO) 1.2 10^3/uL (1.0-4.0); LYMPHOCYTES % (AUTO) 24 % (12-44); MEAN CORPUSCULAR HEMOGLOBIN 23 pg (25-34); MEAN CORPUSCULAR HGB CONC 32 g/dL (32-36); MEAN CORPUSCULAR VOLUME 72 fL (80-99); MONOCYTES # (AUTO) 0.4 10^3/uL (0.0-1.0); MONOCYTES % (AUTO) 8 % (0-12); NEUTROPHILS # (AUTO) 2.5 10^3/uL (1.8-7.8); NEUTROPHILS % (AUTO) 50 % (42-75); PLATELET COUNT 475 10^3/uL (130-400); WHITE BLOOD COUNT 4.9 10^3/uL (4.3-11.0)
[2022-08-01 07:42] LABS: AMPHETAMINE SCREEN, URINE NEGATIVE (NEGATIVE); BARBITURATE SCREEN URINE NEGATIVE (NEGATIVE); BENZODIAZEPINES SCREEN URINE NEGATIVE (NEGATIVE); CANNABINOID SCREEN, URINE NEGATIVE (NEGATIVE); COCAINE SCREEN URINE NEGATIVE (NEGATIVE); METHADONE STAT NEGATIVE (NEGATIVE); OPIATE SCREEN URINE NEGATIVE (NEGATIVE); OXYCODONE STAT NEGATIVE (NEGATIVE); PROPOXYPHENE STAT NEGATIVE (NEGATIVE); TRICYCLIC ANTIDEPRESSANTS SCRE NEGATIVE (NEGATIVE)
[2022-08-01] MEDS ORDERED: ceFAZolin INJECTION 1,000 MG ONE (07:46)
[2022-08-01] MEDS: LACTATED RINGERS 1,000 ML IV PRN ×2 (07:59→11:10)
[2022-08-01] MEDS ORDERED: ceFAZolin INJECTION 1,000 MG VIAL IV ONE (08:00)
[2022-08-01] MEDS ORDERED: fentaNYL INJ 100 MCG/2 ML AMP ONE ×3 (08:00→11:02)
[2022-08-01] MEDS ORDERED: MIDAZOLAM 2 MG/2 ML (VERSED) VIAL ONE (08:00)
--- NOTE | 2022-08-01 08:14 | Progress Note-Post Operative ---
Post-Operative Progess Note Surgeon (s)/Legal Activity Adjudicator (s) Surgeon CHAD BOO MD Legal Activity Adjudicator: Judy Pre-Operative Diagnosis Menorrhagia/menometrorrhagia/chronic pelvic pain/endometriosis Post-Operative Diagnosis Same with pathology pending Procedure & Operative Findings Date of Procedure 08/01/22 Procedure Performed/Findings Total laparoscopic hysterectomy with bilateral salpingectomy Anesthesia Type General Estimated Blood Loss Estimated blood loss (mL): minimal Specimens/Packing Specimens Removed Uterus and fallopian tubes CHAD BOO MD Aug 01, 2022 08:14
--- NOTE | 2022-08-01 08:14 | Progress Note-Pre Operative ---
Pre-Operative Progress Note Date of Available H&P: Aug 01, 2022 Date H&P Reviewed: Aug 01, 2022 Time H&P Reviewed: 08:13 History & Physical: H&P Reviewed, No changes noted Pre-Operative Diagnosis: Menorrhagia/menometrorrhagia/chronic pelvic pain/endometriosis CHAD BOO MD Aug 01, 2022 08:14
[2022-08-01] MEDS ORDERED: D5 LR IV SOLUTION 1,000 ML IV SCH (08:15)
[2022-08-01] MEDS ORDERED: ONDANSETRON 4 MG/2 ML (SDV) Z0FRAN IVP PRN ×2 (08:15→10:00)
[2022-08-01] MEDS ORDERED: OXYC1TAB87 PO (08:19)
[2022-08-01] MEDS ORDERED: DOCU100C37 PO (08:19)
[2022-08-01] MEDS ORDERED: IBUP-1780 PO (08:19)
--- NOTE | 2022-08-01 08:21 | Discharge Inst-Surgical ---
Discharge Inst-Surgical Depart Medication/Instructions New, Converted or Re-Newed RX: Transmitted to Pharmacy Consults/Follow Up Patient Instructions: As directed Orders & Referrals Follow Up Appt: Return to clinic on Thursday August 04, 2022 for staple removal Call to make follow up appt. for patient in 4 weeks. Activity: Rest for 24 hours, than as tolerated. Wound Care: May remove Band-Aid tomorrow. Replace as desired. Keep incisions clean and dry. Wash daily with soap and water. Prescriptions for Percocet Motrin and Colace have been sent to patient's pharmacy Diet: As tolerated shower or tub bathe as desired. No driving for 24 hours, no alcoholic beverages for 24 hours, and nothing per vagina (no tampons, douching, or intercourse) for 8 weeks. Patient to return to the clinic as soon as possible for: Temperature greater than 101F, Severe Pain, Foul discharge from incision or vagina, Excessive Bleeding (more than a period). Activity Activity as Tolerated: No Diet Discharge Diet: No Restrictions CHAD BOO MD Aug 01, 2022 08:21
[2022-08-01] MEDS ORDERED: ONDANSETRON 4 MG/2 ML (SDV) Z0FRAN ONE (08:22)
[2022-08-01] MEDS ORDERED: GLYCOPYRROLATE 0.2 MG/ML (ROBINUL) 2 ML VIAL ONE ×2 (08:22→08:23)
[2022-08-01] MEDS ORDERED: proPOfol 200 MG/20 ML (DIPRIVAN) VIAL IV ONE (08:22)
[2022-08-01] MEDS ORDERED: LIDOCAINE PF 1% 5 ML (XYLOCAINE) AMP ONE (08:23)
[2022-08-01] MEDS ORDERED: NEOSTIGMINE (BLOXIVERZ ) 1 MG/1ML 10 ML VIAL ONE (08:23)
[2022-08-01 08:44] LABS: BAND NEUTROPHILS 0 %; BASOPHILS % (MANUAL) 4 %; EOSINOPHILS % (MANUAL) 21 %; LYMPHOCYTES % (MANUAL) 18 %; MONOCYTES % (MANUAL) 5 %; NEUTROPHILS % (MANUAL) 52 %
[2022-08-01 08:45] LABS: ANISOCYTOSIS SLIGHT; HYPOCHROMASIA SLIGHT; MICROCYTOSIS SLIGHT
[2022-08-01] MEDS ORDERED: BUP/EPI 0.5% 1:200,000 (SENSORCAINE) 30 ML VIAL INJ ONE (09:07)
[2022-08-01] MEDS ORDERED: ROCURONIUM 50 MG/5 ML (ZEMURON) VIAL IV ONE (09:40)
[2022-08-01] MEDS ORDERED: SEVOFLURANE (ULTANE) 15 ML INHAL SOLN ONE (09:40)
[2022-08-01] MEDS ORDERED: morphine INJ 10 MG/ML 1ML (SYR OR VIAL) IVP ONE (10:00)
[2022-08-01] MEDS ORDERED: HYDROmorphone 2 MG/ML VIAL (DILAUDID) IV ONE (10:00)
[2022-08-01] MEDS ORDERED: KETOROLAC 30 MG/ML VIAL ONE (10:09)
[2022-08-01] MEDS: KETOROLAC 30 MG/ML VIAL IV SCH ×3 (10:09→22:05)
[2022-08-01] MEDS: fentaNYL INJ 100 MCG/2 ML AMP IVP PRN ×2 (11:08→18:41)
[2022-08-01] MEDS: oxyCODONE/APAP 5/325MG (PERCOCET 5) TABLET PO PRN ×3 (12:57→21:16)
[2022-08-01] MEDS: LABETALOL 200 MG (NORMODYNE) TAB PO SCH ×2 (13:41→21:16)
--- NOTE | 2022-08-01 15:11 | OPERATIVE REPORT ---
DATE OF SERVICE: 08/01/2022 PREOPERATIVE DIAGNOSES: Menometrorrhagia, chronic pelvic pain, endometriosis. POSTOPERATIVE DIAGNOSES: Menometrorrhagia, chronic pelvic pain, endometriosis with pathology pending. OPERATIVE PROCEDURE: Total laparoscopic hysterectomy with bilateral salpingectomies. OPERATIVE DESCRIPTION: With the patient in the supine position under satisfactory general anesthesia, she was repositioned in dorsal lithotomy position in the [facility] for abdominal and vaginal surgery using da Sandra for assistance. A weighted speculum placed in posterior fornix of vagina, cervix exposed and grasped anteriorly with single tooth tenaculum. Uterus was sounded to 12 cm with uterine sound. The cervix was then serially dilated with Osbaldo dilators to accommodate a Ifrah II manipulator, which was placed using a 6 mm x 8 cm uterine probe and a 25 mm colpotomy ring. Sutures of #1 Vicryl placed at 3 and 9 o'clock position of the cervix to affix the uterus to the manipulator. Uribe catheter was placed in the urinary bladder, left to dependent drainage and the patient was brought in low dorsal lithotomy position. A 12 mm incision was made 10 cm superior to the umbilicus. Veress needle was placed through that incision into the abdominal cavity. Correct placement confirmed with water drop test. The abdomen was insufflated with 2.4 liters of carbon dioxide. The Veress needle was removed and a 12 mm Optiview laparoscopic port placed. The abdominal wall was transilluminated and ports of 8 mm were placed 8 cm lateral to the umbilicus approximately 3 cm superior to the umbilicus. The patient was then placed in Trendelenburg allowing the bowel spill out of the pelvis. There were adhesions of the omentum to the anterior abdominal wall, but they were not obstructed at this point. The da Sandra column was advanced on the patient and operative instrument placed in right and left lateral ports and I retired to the da Sandra console. At the console using the bipolar fenestrated grasper on the left and a vessel sealer on the right, the adhesions of the omentum to the anterior abdominal wall were taken down by clamping, cauterizing, dividing with the vessel sealer across those bands of tissue. This allowed the omentum and the bowel spilled completely of the pelvis. The uterus was elevated. It was examined. Both ovaries were normal in appearance. Both fallopian tubes were somewhat tortuous. The uterus was somewhat mottled in appearance consistent with adenomyosis. Laparoscope was rotated. The appendix was identified. It was a normal vermiform appendix, and it was left in situ. Attention was turned back to the pelvis. Right fallopian tube and ovary were grasped and elevated. The mesosalpinx was clamped, cauterized and divided with the vessel sealer across the uteroovarian pedicle, which was also clamped, cauterized and divided with the vessel sealer. The dissection was carried down across the broad ligament down onto the cardinal ligament. Same procedure performed on the left with the same result allowing for removal of the fallopian tubes and conservation of both ovaries. Both ureters were seemed to peristalse well away from the areas of dissection. The anterior lower uterine segment peritoneum was now divided using the monopolar shear in place of the vessel sealer. The bladder was carefully dissected down off the lower uterine segment and then colpotomy incision was started at 12 o'clock position onto the colpotomy ring. That incision was continued circumferentially until the entire colpotomy ring was exposed and then the uterus was extracted through the vagina with the tubes still attached. The vaginal cuff was closed with a single suture V-Loc barbed suture starting from the right angle and continuing across to the left and then using the last two stitches of that suture to reapproximate the bladder peritoneum onto the vaginal cuff. Care was taken to ensure inclusion of the uterine vessels bilaterally with the closure. Hemostasis at this point was complete. Both ureters were seemed to peristalse and the laparoscopic portion of the procedure was terminated. The operative instruments were removed under direct vision as were the ports. The abdomen was evacuated of the insufflating gas in the process of removing the ports. The skin incisions were stapled. The fascia at the supraumbilical incision was closed with [id number] suture of 2-0 Vicryl. Speculum was replaced in the vagina. The vaginal cuff was examined. It was completely reapproximated and completely hemostatic. Sponge and needle counts were correct. Blood loss was minimal. The patient was uneventfully awakened from her general anesthesia and transferred to recovery room in stable condition. Job ID: [id number] DocumentID: [id number] Dictated Date: 08/01/2022 10:02:11 Vault Teller Date: 08/01/2022 15:10:00 Dictated By: CHAD BOO MD
[2022-08-02] MEDS: oxyCODONE/APAP 5/325MG (PERCOCET 5) TABLET PO PRN ×2 (01:14→06:53)
[2022-08-02 05:20] VITALS: BP 109/57
[2022-08-02] MEDS: KETOROLAC 30 MG/ML VIAL IV SCH (05:22)
[2022-08-02 09:00] VITALS: BP 127/77
[2022-08-02] MEDS ORDERED: DOCUSATE SODIUM 100 MG (COLACE) CAP PO SCH (09:00)
[2022-08-02] MEDS: LABETALOL 200 MG (NORMODYNE) TAB PO SCH (09:12)
--- NOTE | 2022-08-02 09:29 | Progress Note ---
Standard Progress Note Progress Notes/Assess & Plan Date Seen by a Provider: Aug 02, 2022 Time Seen by a Provider: 09:28 Progress/Assessment & Plan This patient is without complaint. She is ambulating, voiding, tolerating oral intake well and has good pain control. She is requesting discharge home. Vital Signs Date Time Temp Pulse Resp B/P (MAP) Pulse Ox O2 Delivery O2 Flow Rate FiO2 08/02/22 09:00 36.6 76 18 127/77 (94) 100 Room Air 08/02/22 05:20 36.0 68 18 109/57 (74) 98 08/01/22 23:15 36.3 62 18 128/69 (88) 99 08/01/22 19:25 36.8 79 18 137/67 (90) 97 Room Air 08/01/22 17:04 36.8 70 18 135/74 (94) 96 Room Air 08/01/22 15:05 36.4 79 18 166/88 (114) 96 Room Air 08/01/22 14:37 Room Air 08/01/22 13:23 36.3 73 18 189/103 (131) 95 Room Air 08/01/22 12:54 186/86 (119) 08/01/22 11:07 36.0 65 18 142/83 (102) 95 Room Air 08/01/22 10:45 Room Air 08/01/22 10:45 36.4 18 151/87 (108) 94 Room Air 08/01/22 10:40 18 155/82 (106) 95 Room Air 08/01/22 10:38 Room Air 08/01/22 10:30 18 154/84 (107) 95 Room Air 08/01/22 10:29 Room Air 08/01/22 10:22 OxyMask 2.00 08/01/22 10:20 18 153/83 (106) 98 OxyMask 2.00 08/01/22 10:16 OxyMask 4.00 08/01/22 10:10 18 153/89 (110) 100 OxyMask 4.00 08/01/22 10:07 OxyMask 6.00 08/01/22 10:04 OxyMask 6.00 08/01/22 10:00 18 133/75 (94) 100 OxyMask 6.00 08/01/22 09:55 OxyMask 6.00 08/01/22 09:50 18 124/70 (88) 100 OxyMask 6.00 08/01/22 09:45 36.6 16 122/67 (85) 97 OxyMask 6.00 08/01/22 09:45 OxyMask 6.00 I & O 08/02/22 07:00 Intake Total 1800 ml Output Total 1670 ml Balance 130 ml Vital signs are stable. Patient is afebrile. The abdomen is benign. Extremities show no clubbing or cyanosis. There is no Homans' sign. Assessment and plan Postoperative day #1 status post total laparoscopic hysterectomy with bilateral salpingectomies. Patient is doing well will be discharged home with follow-up in clinic Final Diagnosis Menometrorrhagia CHAD BOO MD Aug 02, 2022 09:29
[2022-08-02] MEDS ORDERED: IBUPROFEN 800 MG (MOTRIN) TAB PO SCH (10:00)
[2022-08-02 10:25] VITALS: BP 127/77
--- NOTE | 2022-08-03 14:45 | Anesthesia-General Post-Op ---
General Patient Condition Mental Status/LOC: Same as Preop Cardiovascular: Satisfactory Nausea/Vomiting: Absent Respiratory: Satisfactory Pain: Controlled Complications: Absent Post Op Complications Complications None Follow Up Care/Instructions Patient Instructions None needed. Anesthesia/Patient Condition Patient Condition Patient is doing well, no complaints, stable vital signs, no apparent adverse anesthesia problems. No complications reported per nursing. PRAFUL YAO CRNA Aug 03, 2022 14:45
== END 2022-08-02 10:25 | disposition home or self-care (01) ==
LOC: SDC 06:57 → WS 10:57 → SDC 08-02 10:25
PROVIDERS: ATTEND Obstetrics & Gynecology
DX: N80.0 Endometriosis of uterus (principal); N83.8 Other noninflammatory disorders of ovary, fallopian tube and broad ligament; N92.1 Excessive and frequent menstruation with irregular cycle; G89.29 Other chronic pain; F17.210 Nicotine dependence, cigarettes, uncomplicated
CPT/HCPCS: 36415; 80306; 84703; 85007; 85027; 86850; 86900; 86901; 87081; 94664

== ENCOUNTER 2022-10-12 17:23 | Emergency (ER) | payer MEDICAID ==
[~2022-10-12] VITALS: Ht 160 cm; Wt 86.2 kg
[~2022-10-12 17:23] MED LIST changes: +ALBU8.5H6 IH; +DOCU100C37 PO; +IBUP-1780 PO; +OXYC1TAB87 PO; -RT-ALBUINH IH
[2022-10-12 17:30] VITALS: BP 131/87
--- NOTE | 2022-10-12 17:35 | ED EENT ---
History of Present Illness General Chief Complaint: Dental Problems/Pain Stated Complaint: DENTAL PAIN Source: patient Exam Limitations: no limitations History of Present Illness Date Seen by Provider: Oct 12, 2022 Time Seen by Provider: 17:40 Initial Comments 36 y/o female presents today with c/o oral post op pain. Pt had right upper wisdom tooth removed on 10/10/22, was prescribed tylenol #3 for pain, but it has been making her itchy so she didn't take any today. Pain worsened today and she was told by dentist to come to ER if pain worsened. She has been taking ibuprof en today. She is also currently on amoxicillin. She denies fever, chills, bleeding, drainage, swollen lymph nodes Timing/Duration: gradual, this morning Location: mouth, dental Prearrival Treatment: over the counter meds, prescription meds Associated Symptoms: No cough, No drooling, No facial pain/swelling, No fever, No malaise, No nasal congestion/drainage, No poor fluid intake, No sore throat Allergies and Home Medications Allergies Coded Allergies: latex (Verified Allergy, Unknown, 09/27/08) tramadol (Unverified Adverse Reaction, Severe, headache (tolerated morphine and dilaudid), 08/01/22) Patient Home Medication List Home Medication List Reviewed: Yes Docusate Sodium (Docusate Sodium) 100 Mg Capsule, 100 MG PO BID Prescribed by: CHAD DE LA O on 08/01/22818 Ibuprofen (Ibuprofen) 800 Mg Tablet, 800 MG PO Q6H Prescribed by: CHAD DE LA O on 08/01/22818 Oxycodone HCl/Acetaminophen (Percocet 5-325 mg Tablet) 1 Each Tablet, 1 TAB PO Q4H PRN for PAIN-MODERATE (5-7) Prescribed by: CHAD DE LA O on 08/01/22 0820 Review of Systems Review of Systems Constitutional: No chills, No diaphoresis, No dizziness, No fever, No malaise, No weakness Eyes: No Symptoms Reported Ears: No Symptoms Reported Nose: no symptoms reported Mouth: pain; denies swelling, denies bloody discharge, denies purulent discharge, denies serosanguinous discharge Throat: denies pain, denies swelling, denies discharge, denies neck stiffness, denies painful swallowing, denies difficulty with fluids Respiratory: no symptoms reported Cardiovascular: no symptoms reported Gastrointestinal: No hematemesis, No loss of appetite, No nausea, No vomiting Skin: no symptoms reported Hematologic/Lymphatic: No Symptoms Reported Immunological/Allergic: no symptoms reported Past Gxrqorz-Eriahu-Ptzdzk Hx Patient Social History Tobacco Use?: Yes Smoking Status: Current Everyday Smoker Use of E-Cig and/or Vaping dev: No Alcohol Use?: Yes Alcohol Frequency: Once in a while Immunizations Up To Date Tetanus Booster (TDap): Unknown First/Initial COVID19 Vaccinat: NO Second COVID19 Vaccination Tyrone: NO Third COVID19 Vaccination Date: NO Seasonal Allergies Seasonal Allergies: No Past Medical History Surgery/Hospitalization HX: C-Sections x 7, kidney surgery x4,knee x 2, carpal tunnel release, foot surgery HTN Surgeries: Yes (7 CS, carpal tunnel, l knee surg, benign turmor on feet, uretural reflex) Bladder Surgery, Section, Orthopedic Respiratory: Yes Asthma Cardiac: Yes Hypertension Neurological: No Reproductive Disorders: No Female Reproductive Disorders: Denies Sexually Transmitted Disease: Yes (age 12 Chlamydia) HIV/AIDS: No Genitourinary: Yes Kidney Infection, Bladder Infection, UTI-Chronic Gastrointestinal: No Musculoskeletal: Yes Back Injury, Chronic Back Pain Endocrine: No HEENT: No Hearing Impairment: Denies Cancer: No Psychosocial: No Integumentary: No Blood Disorders: No Adverse Reaction/Blood Tranf: No Family Medical History Hypertension 19 MOTHER No Pertinent Family Hx Physical Exam Vital Signs Vital Signs - First Documented 10/12/22 17:30 Temp 36.6 Pulse 69 Resp 20 B/P (MAP) 131/87 (102) Pulse Ox 99 O2 Delivery Room Air Height, Weight, BMI Height: 5'2.00" Weight: 146lbs. 4.0oz. [id number]; 33.67 BMI Method:Stated General Appearance: WD/WN, no apparent distress Nose: normal inspection Mouth/Throat: No excessive drooling, No foreign body, No mandibular swelling, No maxillary swelling, No pharynx swelling, No pharynx tenderness, No tongue sw ollen, No tonsillar exudate, No tonsillar swelling, No uvula swelling, No voice changes Neck: non-tender, full range of motion, supple; No lymphadenopathy (R), No lymphadenopathy (L) Cardiovascular: normal peripheral pulses, regular rate, rhythm Skin: normal color, warm/dry Progress/Results/Core Measures Results/Orders My Orders Orders - JESSICA PLASCENCIA APRN Ketorolac Injection (Toradol Injection) (10/12/22 17:45) Hydrocodone/Apap 5/325 Tablet (Lortab 5 (10/12/22 17:45) Rx-Hydrocodone/Apap 5-325 Mg (Rx-Vicodin (10/12/22 18:15) Medications Given in ED Current Medications Medications Dose Ordered Sig/Hever Route Start Time Stop Time Status Last Admin Dose Admin Acetaminophen/ Hydrocodone Bitart 1 ea ONCE ONCE PO 10/12/22 17:45 10/12/22 17:46 DC 10/12/22 17:55 1 EA Ketorolac Tromethamine 60 mg ONCE ONCE IM 10/12/22 17:45 10/12/22 17:46 DC 10/12/22 17:55 60 MG Vital Signs/I&O 10/12/22 17:30 Temp 36.6 Pulse 69 Resp 20 B/P (MAP) 131/87 (102) Pulse Ox 99 O2 Delivery Room Air Progress Progress Note : Progress Note Vitals stable, she is afebrile, in NAD. Pt not tolerating home tylenol #3 for post op pain. Was given toradol and norco here today and she reports improvement of pain. Departure Impression Primary Impression: Post-op pain Disposition: 01 HOME, SELF-CARE Condition: Improved Departure-Patient Inst. Decision time for Depature: 18:05 Referrals: CONRAD BRASHER MD (PCP/Family) Primary Care Physician Patient Instructions: Dental Pain (DC), Postoperative Pain (DC) Add. Discharge Instructions: Ibuprofen 600mg every 6 hours as needed, tylenol 500mg every 4 hours as needed. Erie as needed for severe pain--do not exceed 4000mg of acetaminophen in 24 hours. Erie contains 325mg of acetaminophen(tylenol). Ice packs as needed. Follow up with your dentist tomorrow. Continue antibiotics as prescribed. All discharge instructions reviewed with patient and/or family. Voiced understanding. JESSICA PLASCENCIA APRN Oct 12, 2022 17:35
[2022-10-12] MEDS ORDERED: HYDROcodone/APAP 5 MG/325 MG (LORTAB) TAB PO ONE (17:45)
[2022-10-12] MEDS ORDERED: KETOROLAC 60 MG/2 ML VIAL IM ONE (17:45)
== END 2022-10-12 18:20 | disposition home or self-care (01) ==
LOC: EDUNIT# 17:23 → ER 17:25
DX: G89.18 Other acute postprocedural pain (principal); F17.200 Nicotine dependence, unspecified, uncomplicated; Z91.040 Latex allergy status; Z28.310 Unvaccinated for COVID-19; Z88.5 Allergy status to narcotic agent; Z98.818 Other dental procedure status
CPT/HCPCS: 99284

== ENCOUNTER 2023-02-07 07:53 | Emergency (ER) | payer MEDICAID ==
[~2023-02-07] VITALS: Ht 160 cm; Wt 82.0 kg
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
[2023-02-07 08:30] LABS: BASOPHILS # (AUTO) 0.1 10^3/uL (0.0-0.1); BASOPHILS % (AUTO) 1 % (0-10); EOSINOPHILS # (AUTO) 0.7 10^3/uL (0.0-0.3); EOSINOPHILS % (AUTO) 11 % (0-10); HEMATOCRIT 36 % (35-52); HEMOGLOBIN 11.7 g/dL (11.5-16.0); LYMPHOCYTES # (AUTO) 1.3 10^3/uL (1.0-4.0); LYMPHOCYTES % (AUTO) 22 % (12-44); MEAN CORPUSCULAR HEMOGLOBIN 23 pg (25-34); MEAN CORPUSCULAR HGB CONC 32 g/dL (32-36); MEAN CORPUSCULAR VOLUME 71 fL (80-99); MEAN PLATELET VOLUME 9.6 fL (9.0-12.2); MONOCYTES # (AUTO) 0.4 10^3/uL (0.0-1.0); MONOCYTES % (AUTO) 7 % (0-12); NEUTROPHILS # (AUTO) 3.5 10^3/uL (1.8-7.8); NEUTROPHILS % (AUTO) 59 % (42-75); PLATELET COUNT 322 10^3/uL (130-400)
[2023-02-07 08:40] LABS: ALBUMIN 3.6 GM/DL (3.2-4.5); POTASSIUM 4.4 MMOL/L (3.6-5.0)
[2023-02-07 08:41] LABS: CALCIUM 9.4 MG/DL (8.5-10.1)
[2023-02-07 08:44] LABS: BILIRUBIN,TOTAL 0.2 MG/DL (0.1-1.0)
[2023-02-07 08:46] LABS: CREATININE SERUM 0.81 MG/DL (0.60-1.30)
[2023-02-07 08:48] LABS: MAGNESIUM 1.9 MG/DL (1.6-2.4)
[2023-02-07 09:16] VITALS: BP 146/81
== END 2023-02-07 09:16 | disposition home or self-care (01) ==
LOC: EDUNIT# 07:53 → ER 07:55
DX: R20.2 Paresthesia of skin (principal); D50.9 Iron deficiency anemia, unspecified; M54.6 Pain in thoracic spine; F17.210 Nicotine dependence, cigarettes, uncomplicated; Z91.040 Latex allergy status; Z28.310 Unvaccinated for COVID-19; Z88.6 Allergy status to analgesic agent
CPT/HCPCS: 36415; 80053; 83735; 85025

== ENCOUNTER 2023-02-22 17:53 | Emergency (ER) | payer MEDICAID ==
[~2023-02-22] VITALS: Ht 157.5 cm; Wt 81.6 kg
[2023-02-22 18:49] LABS: BILIRUBIN,URINE NEGATIVE (NEGATIVE); CLARITY,URINE CLEAR; COLOR,URINE YELLOW; GLUCOSE, URINE (UA) NEGATIVE (NEGATIVE); KETONES,URINE NEGATIVE (NEGATIVE); LEUKOCYTE ESTERASE ,URINE 1+ (NEGATIVE); NITRITE,URINE NEGATIVE (NEGATIVE); PROTEIN,URINE NEGATIVE (NEGATIVE)
[2023-02-22 18:54] LABS: BASOPHILS # (AUTO) 0.1 10^3/uL (0.0-0.1); BASOPHILS % (AUTO) 1 % (0-10); EOSINOPHILS # (AUTO) 0.6 10^3/uL (0.0-0.3); EOSINOPHILS % (AUTO) 10 % (0-10); HEMATOCRIT 36 % (35-52); HEMOGLOBIN 11.7 g/dL (11.5-16.0); LYMPHOCYTES # (AUTO) 1.9 10^3/uL (1.0-4.0); LYMPHOCYTES % (AUTO) 33 % (12-44); MEAN CORPUSCULAR HEMOGLOBIN 23 pg (25-34); MEAN CORPUSCULAR HGB CONC 32 g/dL (32-36); MEAN CORPUSCULAR VOLUME 72 fL (80-99); MEAN PLATELET VOLUME 9.5 fL (9.0-12.2); MONOCYTES # (AUTO) 0.5 10^3/uL (0.0-1.0); MONOCYTES % (AUTO) 9 % (0-12); NEUTROPHILS # (AUTO) 2.7 10^3/uL (1.8-7.8); NEUTROPHILS % (AUTO) 47 % (42-75); PLATELET COUNT 404 10^3/uL (130-400); WHITE BLOOD COUNT 5.7 10^3/uL (4.3-11.0)
[2023-02-22 19:02] LABS: AMPHETAMINE SCREEN, URINE POSITIVE (NEGATIVE); BACTERIA,URINE FEW /HPF; BARBITURATE SCREEN URINE NEGATIVE (NEGATIVE); BENZODIAZEPINES SCREEN URINE NEGATIVE (NEGATIVE); CANNABINOID SCREEN, URINE NEGATIVE (NEGATIVE); COCAINE SCREEN URINE NEGATIVE (NEGATIVE); METHADONE STAT NEGATIVE (NEGATIVE); OPIATE SCREEN URINE NEGATIVE (NEGATIVE); OXYCODONE STAT NEGATIVE (NEGATIVE); PROPOXYPHENE STAT NEGATIVE (NEGATIVE); RBC,URINE 0-2 /HPF; TRICYCLIC ANTIDEPRESSANTS SCRE NEGATIVE (NEGATIVE)
[2023-02-22 19:03] LABS: ALBUMIN 3.8 GM/DL (3.2-4.5); CHLORIDE 106 MMOL/L (98-107); POTASSIUM 3.4 MMOL/L (3.6-5.0); SODIUM 139 MMOL/L (135-145)
[2023-02-22 19:04] LABS: CALCIUM 8.9 MG/DL (8.5-10.1)
[2023-02-22 19:06] LABS: GLUCOSE 68 MG/DL (70-105); TOTAL PROTEIN 7.7 GM/DL (6.4-8.2)
[2023-02-22 19:07] LABS: BILIRUBIN,TOTAL 0.2 MG/DL (0.1-1.0); CARBON DIOXIDE 22 MMOL/L (21-32)
--- NOTE | 2023-02-22 19:07 | ED General ---
General Chief Complaint: General Problems/Pain Stated Complaint: ALL OVER PAIN, NUMBNESS Nursing Triage Note: PT AMB TO ED BY POV WITH C/O PAIN IN ARMS, LEGS, HANDS, FEET, AND BACK THAT HAS BEEN INTERMITTENT SINCE HER PARTIAL HYSTERECTOMY 6 MONTHS AGO. PT HAS BEEN SEEN HERE FOR THE SAME COMPLAINT WELL MULTIPLE TIMES BY PCP AND [facility]. PT REPORTS SHE HAD XR TAKEN AT [facility] ON THURSDAY OF HER NECK AND SPINE BUT DOES NOT KNOW THE RESULTS OF THOSE. PT REQUESTS COVID TEST AND REPORTS SHE HAS HAD A COUGH AND RUNNY NOSE X 2 DAYS, DENIES SOB OR FEVER. Source of Information: Patient History of Present Illness Date Seen by Provider: Feb 22, 2023 Time Seen by Provider: 18:15 Initial Comments PT ARRIVES VIA POV FROM HOME C/O "PAIN ALL OVER" SINCE YESTERDAY STATES SHE HAS BEEN HAVING NUMBNESS AND TINGLING AND RESTLESSNESS IN HER ARMS AND LEGS NO MOTOR DEFICITS, NO PROBLEMS WALKING PT STATES SHE HAS BEEN HAVING THESE SYMPTOMS OFF AND ON FOR THE LAST 6 MONTHS, SINCE SHE DELIVERED HER LAST CHILD 05/2022 SHE HAD A HYSTERECTOMY 07/2022, OVARIES INTACT SYMPTOMS ARE NO DIFFERENT TODAY SHE TOOK IBUPROFEN 400 MG 2 HOURS AGO, NO RELIEF. PT STATES SHE HAS ALSO HAD COUGH AND NASAL CONGESTION THE LAST COUPLE OF DAYS. NO FEVER/SWEATS/CHILLS NO SHORTNESS OF BREATH NO CHEST PAIN NO SYNCOPE NO PALPITATIONS NO GI SYMPTOMS NO HEADACHE NO VISION CHANGES NO DIZZINESS PT STATES SHE DOES NOT TAKE ANY MEDICATIONS SHE STATES SHE HAS A HISTORY OF SEIZURES. SHE STATES SHE HAS BEEN SEEN MULTIPLE TIMES FOR THIS PROBLEM, MOST RECENTLY WAS SEEN ON THURSDAY BY DR. BRASHER FOR THIS AND AND XRAYS OF HER NECK AND BACK ON BUT DOES NOT HAVE THOSE TEST RESULTS BACK. PT SMOKES 1 PPD OF CIGARETTES, SHE DENIES ANY RECENT ALCOHOL USE--STATES SHE DRANK WHEN SHE WAS YOUNGER. SHE STATES THAT SHE "RELAPSED" WITH METHAMPHETAMINE USE, AND CLAIMS HER LAST USE WAS YESTERDAY. PT IS NOT COVID OR FLU VACCINATED. PCP: DR. BRASHER AT [facility] [place] and Home Medications Allergies Coded Allergies: latex (Verified Allergy, Unknown, 09/27/08) tramadol (Unverified Adverse Reaction, Severe, headache (tolerated morphine and dilaudid), 08/01/22) Patient Home Medication List Docusate Sodium (Docusate Sodium) 100 Mg Capsule, 100 MG PO BID Prescribed by: CHAD DE L AO on 08/01/22818 Ibuprofen (Ibuprofen) 800 Mg Tablet, 800 MG PO Q6H Prescribed by: CHAD DE LA O on 08/01/22818 Ketorolac Tromethamine (Ketorolac Tromethamine) 10 Mg Tablet, 10 MG PO Q6H Prescribed by: SANCHEZ PARADA on 02/22/232008 Nitrofurantoin Monohyd/M-Cryst (Macrobid 100 mg Capsule) 100 Mg Capsule, 1 TAB PO BID Prescribed by: SANCHEZ PARADA on 02/22/232008 Oxycodone HCl/Acetaminophen (Percocet 5-325 mg Tablet) 1 Each Tablet, 1 TAB PO Q4H PRN for PAIN-MODERATE (5-7) Prescribed by: CHAD DE LA O on 08/01/22819 Review of Systems Review of Systems Constitutional: no symptoms reported EENTM: see HPI Respiratory: see HPI, cough; No short of breath Cardiovascular: no symptoms reported Gastrointestinal: no symptoms reported; No abdominal pain, No constipation, No diarrhea, No nausea, No vomiting Genitourinary: no symptoms reported Musculoskeletal: see HPI Skin: no symptoms reported Psychiatric/Neurological: See HPI Hematologic/Lymphatic: No Symptoms Reported Immunological/Allergic: no symptoms reported Past Gfnjqrd-Fhhcnw-Mnrctm Hx Patient Social History Tobacco Use?: Yes Tobacco type used: Cigarettes Smoking Status: Current Everyday Smoker Use of E-Cig and/or Vaping dev: No Substance use?: Yes Substance type: Methamphetamine Substance frequency: Daily Alcohol Use?: Yes Pt feels they are or have been: No Immunizations Up To Date Tetanus Booster (TDap): Unknown Influenza Vaccine Up-to-Date: No; Not Current First/Initial COVID19 Vaccinat: NO Second COVID19 Vaccination Tyrone: NO Third COVID19 Vaccination Date: NO Seasonal Allergies Seasonal Allergies: No Past Medical History Surgery/Hospitalization HX: C-Sections x 7, kidney surgery x4,knee x 2, carpal tunnel release, foot surgery HTN, DENTAL SURGERY, PARTIAL HYST Surgeries: Yes (7 CS, carpal tunnel, l knee surg, benign turmor on feet, uretural reflex) Bladder Surgery, Section, Orthopedic Respiratory: Yes Asthma Cardiac: Yes Hypertension Neurological: No : No Hx : 12 Hx Para: 7 Hx Total # of Abortions (Sp): 6 Reproductive Disorders: Yes Female Reproductive Disorders: Menstrual Problems [employer] History: Hysterectomy Sexually Transmitted Disease: Yes (age 12 Chlamydia) HIV/AIDS: No Genitourinary: Yes Kidney Infection, Bladder Infection, UTI-Chronic Gastrointestinal: No Musculoskeletal: Yes (MULTIPLE ORTHO SURGERIES) Back Injury, Chronic Back Pain Endocrine: No HEENT: No Hearing Impairment: Denies Cancer: No Psychosocial: Yes (POLYSUBSTANCE ABUSE) Integumentary: No Blood Disorders: No Adverse Reaction/Blood Tranf: No Family Medical History Hypertension 18 MOTHER No Pertinent Family Hx SOCIAL HISTORY: -SMOKES 1 1/2 PPD -ETOH ---DRANK WHEN SHE WAS YOUNGER, NO RECENT USE, PER PT ON 02/22/23 -DRUGS--METHAMPHETAMINE USE. STATES SHE SMOKES IT. PAST SURGICAL HISTORY: - X 7---PT IS AB 6 -HYSTERECTOMY, OVARIES INTACT 07/2022 -BILATERAL URETERAL SURGERY X 4 FOR URETERAL REFLUX -BILATERAL CARPAL TUNNEL SURGERY -BILATERAL FOOT SURGERY FOR BENIGN TUMORS -RIGHT KNEE SCOPE X 2 -RIGHT INDEX FINGER TENDON REPAIR Physical Exam Vital Signs Vital Signs - First Documented 02/22/23 18:05 Temp 36.5 Pulse 77 Resp 18 B/P (MAP) 175/90 (118) Pulse Ox 99 O2 Delivery Room Air Capillary Refill : Less Than 3 Seconds Height, Weight, BMI Height: 5'2.00" Weight: 146lbs. 4.0oz. 66.034218ng; 32.00 BMI Method:Stated General Appearance: No Apparent Distress, WD/WN, Other (WALKS AND MOVES WITHOUT DIFFICULTY. DOES NOT APPEAR ILL OR TO BE IN ANY DISCOMFORT OR DISTRESS. ) HEENT: PERRL/EOMI, Pharynx Normal, Other (MILD NASAL CONGESTION) Neck: Normal Inspection Respiratory: Chest Non Tender, Normal Breath Sounds, No Accessory Muscle Use, No Respiratory Distress Cardiovascular: Regular Rate, Rhythm, No Edema, No JVD, No Murmur, Normal Peripheral Pulses Gastrointestinal: Non Tender, Soft Back: Normal Inspection, No CVA Tenderness, No Vertebral Tenderness Extremity: Normal Capillary Refill, Normal Inspection, Normal Range of Motion, Non Tender, No Calf Tenderness, No Pedal Edema Neurologic/Psychiatric: Alert, Oriented x3, No Motor/Sensory Deficits, Normal Mood/Affect, counseling aide II-XII Norm as Tested Reflexes: 2+ Bicep (R), 2+ Bicep (L), 2+ Knee (R), 2+ Knee (L) Skin: Normal Color, Warm/Dry; No Rash Progress/Results/Core Measures Suspected Sepsis SIRS Temperature: Pulse: 77 Respiratory Rate: 18 Laboratory Tests 02/22/23 18:48: White Blood Count 5.7 Blood Pressure 175 /90 Mean: 118 Laboratory Tests 02/22/23 18:48: Creatinine 0.79, Platelet Count 404H, Total Bilirubin 0.2 Results/Orders Lab Results Laboratory Tests Test 02/22/23 18:37 02/22/23 18:43 02/22/23 18:48 Range/Units Influenza Type A (RT-PCR) Not Detected Not Detecte Influenza Type B (RT-PCR) Not Detected Not Detecte SARS-CoV-2 RNA (RT-PCR) Negative Not Detecte Urine Color YELLOW Urine Clarity CLEAR Urine pH 6.0 5-9 Urine Specific [place] 1.015 L 1.016-1.022 Urine Protein NEGATIVE NEGATIVE Urine Glucose (UA) NEGATIVE NEGATIVE Urine Ketones NEGATIVE NEGATIVE Urine Nitrite NEGATIVE NEGATIVE Urine Bilirubin NEGATIVE NEGATIVE Urine Urobilinogen 0.2 < = 1.0 MG/DL Urine Leukocyte Esterase 1+ H NEGATIVE Urine RBC (Auto) 2+ H NEGATIVE Urine RBC 0-2 /HPF Urine WBC 10-25 H /HPF Urine Squamous Epithelial Cells 2-5 /HPF Urine Crystals NONE /LPF Urine Bacteria FEW H /HPF Urine Casts NONE /LPF Urine Mucus NEGATIVE /LPF Urine Culture Indicated YES Urine Opiates Screen NEGATIVE NEGATIVE Urine Oxycodone Screen NEGATIVE NEGATIVE Urine Methadone Screen NEGATIVE NEGATIVE Urine Propoxyphene Screen NEGATIVE NEGATIVE Urine Barbiturates Screen NEGATIVE NEGATIVE Ur Tricyclic Antidepressants Screen NEGATIVE NEGATIVE Urine Phencyclidine Screen NEGATIVE NEGATIVE Urine Amphetamines Screen POSITIVE H NEGATIVE Urine Methamphetamines Screen POSITIVE H NEGATIVE Urine Benzodiazepines Screen NEGATIVE NEGATIVE Urine Cocaine Screen NEGATIVE NEGATIVE Urine Cannabinoids Screen NEGATIVE NEGATIVE White Blood Count 5.7 4.3-11.0 10^3/uL Red Blood Count 5.06 3.80-5.11 10^6/uL Hemoglobin 11.7 11.5-16.0 g/dL Hematocrit 36 35-52 % Mean Corpuscular Volume 72 L 80-99 fL Mean Corpuscular Hemoglobin 23 L 25-34 pg Mean Corpuscular Hemoglobin Concent 32 32-36 g/dL Red Cell Distribution Width 18.8 H 10.0-14.5 % Platelet Count 404 H 130-400 10^3/uL Mean Platelet Volume 9.5 9.0-12.2 fL Immature Granulocyte % (Auto) 0 % Neutrophils (%) (Auto) 47 42-75 % Lymphocytes (%) (Auto) 33 12-44 % Monocytes (%) (Auto) 9 0-12 % Eosinophils (%) (Auto) 10 0-10 % Basophils (%) (Auto) 1 0-10 % Neutrophils # (Auto) 2.7 1.8-7.8 10^3/uL Lymphocytes # (Auto) 1.9 1.0-4.0 10^3/uL Monocytes # (Auto) 0.5 0.0-1.0 10^3/uL Eosinophils # (Auto) 0.6 H 0.0-0.3 10^3/uL Basophils # (Auto) 0.1 0.0-0.1 10^3/uL Immature Granulocyte # (Auto) 0.0 0.0-0.1 10^3/uL Erythrocyte Sedimentation Rate 13 0-20 MM/HR Sodium Level 139 135-145 MMOL/L Potassium Level 3.4 L 3.6-5.0 MMOL/L Chloride Level 106 98-107 MMOL/L Carbon Dioxide Level 22 21-32 MMOL/L Anion Gap 11 5-14 MMOL/L Blood Urea Nitrogen 11 7-18 MG/DL Creatinine 0.79 0.60-1.30 MG/DL Estimat Glomerular Filtration Rate 98 BUN/Creatinine Ratio 14 Glucose Level 68 L 70-105 MG/DL Calcium Level 8.9 8.5-10.1 MG/DL Corrected Calcium 9.1 8.5-10.1 MG/DL Magnesium Level 2.1 1.6-2.4 MG/DL Total Bilirubin 0.2 0.1-1.0 MG/DL Aspartate Amino Transf (AST/SGOT) 22 5-34 U/L Alanine Aminotransferase (ALT/SGPT) 18 0-55 U/L Alkaline Phosphatase 107 40-136 U/L Total Creatine Kinase 144 29-168 U/L Creatine Kinase MB 2.5 <6.6 NG/ML Myoglobin 34.3 10.0-92.0 NG/ML C-Reactive Protein High Sensitivity 1.21 H 0.00-0.50 MG/DL Total Protein 7.7 6.4-8.2 GM/DL Albumin 3.8 3.2-4.5 GM/DL TSH [place] Testing 0.65 0.35-4.94 UIU/ML Serum Test, Qualitative NEGATIVE NEGATIVE Acetaminophen Level < 10 L 10-30 UG/ML Serum Alcohol < 10 <10 MG/DL My Orders Orders - SANCHEZ PARADA DO Ed Iv/Invasive Line Start (02/22/23 18:15) Monitor-Rhythm Ecg Trace Only (02/22/23 18:15) Cbc With Automated Diff (02/22/23 18:15) Comprehensive Metabolic Panel (02/22/23 18:15) Hcg,Qualitative Serum (02/22/23 18:15) Magnesium (02/22/23 18:15) Ua Culture If Indicated (02/22/23 18:15) Covid 19 Inhouse Test (02/22/23 18:15) Influenza A And B By Pcr (02/22/23 18:15) Isolation Central Supply Req (02/22/23 18:15) Acetaminophen (02/22/23 18:21) Alcohol (02/22/23 18:21) Creatine Kinase (02/22/23 18:21) Creatine Kinase Mb (02/22/23 18:21) Hs C Reactive Protein (02/22/23 18:21) Drug Screen Stat (Urine) (02/22/23 18:21) Thyroid Analyzer (02/22/23 18:21) Erythrocyte Sedimentation Rate (02/22/23 18:21) Myoglobin Serum (02/22/23 18:21) Ed Iv/Invasive Line Start (02/22/23 18:21) Ct Head/Cervical Spine Wo (02/22/23 18:21) Ct Thoracic/Lumbar Spine Wo (02/22/23 18:21) Urine Culture (02/22/23 18:43) Ketorolac Injection (Toradol Injection) (02/22/23 20:15) Medications Given in ED Current Medications Medications Dose Ordered Sig/Hever Route Start Time Stop Time Status Last Admin Dose Admin Ketorolac Tromethamine 30 mg ONCE ONCE IVP 02/22/23 20:15 02/22/23 20:16 DC 02/22/23 20:15 30 MG Vital Signs/I&O 302/22/23 02/22/23 18:05 18:05 20:18 Temp 36.5 Pulse 77 63 Resp 18 16 B/P (MAP) 175/90 (118) 166/110 Pulse Ox 99 98 O2 Delivery Room Air Room Air Room Air Capillary Refill : Less Than 3 Seconds Blood Pressure Mean: 118 Progress Note : Progress Note COVID AND FLU TESTING DONE GIVEN TORADOL FOR PAIN SYMPTOMS IMPROVED REVIEWED PRIOR RECORDS, INCLUDING ER VISITS, ADMITS / H&P'S / DISCHARGE SUMMARIES, AND TESTS/PROCEDURES UNEVENTFUL ER STAY VITALS STABLE. PT STATES HER BP IS ALWAYS HIGH, SHE HAS BEEN PRESCRIBED MEDICATION FOR HTN, BUT DOES NOT TAKE IT. Departure Impression Primary Impression: Methamphetamine use Additional Impression: Urinary tract infection Disposition: HOME, SELF-CARE Condition: Stable Departure-Patient Inst. Decision time for Depature: 20:00 Referrals: CONRAD BRASHER MD (PCP/Family) Primary Care Physician Patient Instructions: Drug Misuse and Addiction (DC), Methamphetamine, Urinary Tract Infection, Adult ED Add. Discharge Instructions: LOTS OF CLEAR LIQUIDS--WATER, BROTH, JELLO, GATORADE DIET TOLERATED YOU MAY TAKE TYLENOL 1 GRAM 4 TIMES A DAY FOR PAIN FOLLOW UP WITH [facility] THIS WEEK FOR FURTHER CARE--CALL IN THE MORNING TO SCHEDULE AN APPOINTMENT NO DRUGS OR ALCOHOL All discharge instructions reviewed with patient and/or family. Voiced understanding. Scripts Ketorolac Tromethamine (Ketorolac Tromethamine) 10 Mg Tablet 10 MG PO Q6H for Pain, #15 TAB Prov: SANCHEZ PARADA DO 02/22/23 Nitrofurantoin Monohyd/M-Cryst (Macrobid 100 mg Capsule) 100 Mg Capsule 1 TAB PO BID, #20 CAP Prov: SANCHEZ PARADA DO 02/22/23 SANCHEZ PARADA DO Feb 22, 2023 19:07
[2023-02-22 19:09] LABS: ALKALINE PHOSPHATASE 107 U/L (40-136)
[2023-02-22 19:10] LABS: CREATININE SERUM 0.79 MG/DL (0.60-1.30); GFR ESTIMATED 98
[2023-02-22 19:11] LABS: BUN/CREATININE RATIO 14
[2023-02-22 19:12] LABS: ALANINE AMINOTRANSFERASE 18 U/L (0-55)
[2023-02-22 19:13] LABS: CREATINE KINASE 144 U/L (29-168); MAGNESIUM 2.1 MG/DL (1.6-2.4)
[2023-02-22 19:20] LABS: ERYTHROCYTE SEDIMENTATION RATE 13 MM/HR (0-20)
[2023-02-22 19:21] LABS: CREATINE KINASE MB 2.5 NG/ML (<6.6)
--- NOTE | 2023-02-22 19:27 | Diagnostic Imaging Report ---
EXAMINATION: CT head and CT cervical spine without contrast. TECHNIQUE: Multiple contiguous axial images were obtained through the brain and cervical spine without the use of intravenous contrast. Sagittal and coronal reformations through the cervical spine were then performed. All CT scans use one or more of the following dose optimizing techniques: automated exposure control, MA and/or KvP adjustment based on patient size and exam type or iterative reconstruction. HISTORY: Head and neck pain after injury. COMPARISON: None available. FINDINGS: CT HEAD: The ventricles and sulci are normal. No abnormal attenuation of brain parenchyma is present. No acute intracranial hemorrhage or abnormal extra-axial fluid collection is present. No hyperdense vessel. The calvarium is intact. The mastoid air cells are clear. Mucosal thickening of the paranasal sinuses. The orbits are normal. CT C-SPINE: Vertebral body height and alignment are preserved. No acute fracture, dislocation or destructive osseous process. No significant facet hypertrophy. No significant central canal or neuroforaminal stenosis. The paraspinous soft tissues are normal. The visualized thyroid gland is normal. The visualized lung apices are normal. IMPRESSION: 1. No acute intracranial abnormality. 2. No cervical spine fracture. Dictated by: Dictated on workstation # [id number]
--- NOTE | 2023-02-22 19:31 | Diagnostic Imaging Report ---
EXAMINATION: CT thoracic and lumbar spine without contrast. TECHNIQUE: Multiple contiguous axial images were obtained through the thoracic and lumbar spine without the use of intravenous contrast. Sagittal and coronal reformations were then performed. All CT scans use one or more of the following dose optimizing techniques: automated exposure control, MA and/or KvP adjustment based on patient size and exam type or iterative reconstruction. HISTORY: Back pain. COMPARISON: None available. FINDINGS: There is grade 1 anterolisthesis of L4 on L5 secondary to bilateral L4 pars defects. Vertebral body alignment is otherwise normal. Vertebral body heights are normal and no fracture is seen. Facet joints are normal. Disk heights are normal. There is no spinal canal stenosis. Limited views of the soft tissues show no abnormality. The aorta is normal. There may be a few enlarged mediastinal lymph nodes which are partially visualized. IMPRESSION: 1. No acute osseous abnormality of the thoracic and lumbar spine. 2. A few enlarged mediastinal lymph nodes which are partially visualized and indeterminate. Consider a follow-up CT of the chest with IV contrast in a nonemergent setting. Dictated by: Dictated on workstation # [id number]
[2023-02-22 19:34] LABS: TSH (THYROID ANALYZER) 0.65 UIU/ML (0.35-4.94)
[2023-02-22] MEDS ORDERED: KETO10TA PO (20:09)
[2023-02-22] MEDS ORDERED: NITR-65 PO (20:09)
[2023-02-22] MEDS ORDERED: KETOROLAC 30 MG/ML VIAL IVP ONE (20:15)
[2023-02-22 20:18] VITALS: BP 166/110
== END 2023-02-22 20:18 | disposition home or self-care (01) ==
LOC: EDUNIT# 17:53 → ER 17:55
DX: N39.0 Urinary tract infection, site not specified (principal); F15.90 Other stimulant use, unspecified, uncomplicated; F17.210 Nicotine dependence, cigarettes, uncomplicated; Z91.040 Latex allergy status; Z20.822 Contact with and (suspected) exposure to COVID-19; Z28.310 Unvaccinated for COVID-19
CPT/HCPCS: 70450; 72125; 72128; 72131; 80053; 80306; 81000; 82550; 82553; 83735; 83874; 84443; 84703; 85025; 85652; 86141; 87088; 87636; 93041; 99284; G0480 ×2; 36415; 80320; 80329; 87077; 87186